=== PATIENT | male | born 1960 | race African-American/Black ===

== ENCOUNTER 2017-05-24 12:34 | Emergency (ER) | payer MEDICAID, OTHER ==
[~2017-05-24] VITALS: Ht 175.3 cm; Wt 81.6 kg
[~2017-05-24 12:34] MED LIST: ALBUAER3 IN; AMI25T PO; AML5T PO; ASPI-231 PO; ATOR1TAB PO; BENA40TA7 PO; BUPR75TA9 PO; CYCL1TAB18 PO; DICL50TA4 PO; DIPH50CA31 PO; FLUC200T50 PO; GABA-339 PO; METH500T6 PO; METO25TA5 PO; OMEP20CA74 PO
[2017-05-24 12:49] VITALS: BP 158/101
[2017-05-24 15:03] LABS: Alanine Aminotransferase 40 U/L (16-61); Albumin 4.2 g/dL (3.4-5.0); Alkaline Phosphatase 191 U/L (45-117); Anion Gap 8 (5-15); Aspartate Aminotransferase 32 U/L (15-37); BUN/Creatinine Ratio 11.7; Basophils # (auto) 0.1 uL; Bilirubin, Total 0.9 mg/dL (0.2-1.0); Blood Urea Nitrogen 15 mg/dL (7-18); Calcium 9.6 mg/dL (8.5-10.1); Carbon Dioxide 24 mmol/L (21-32); Chloride 107 mmol/L (98-107); Eosinophils # (auto) 0.1 uL; GFR African American 75 mL/min; GFR Non-African American 62 mL/min; Glucose 90 mg/dL (74-106); Neutrophils # (auto) 4.1 uL; Nucleated Red Blood Cells % 0.2 %; Potassium 4.5 mmol/L (3.5-5.1); Sodium 139 mmol/L (136-145); Total Protein 8.8 g/dL (6.4-8.2)
[2017-05-24 15:07] LABS: Basophils % (auto) 1.5 % (0.0-2.0); Eosinophils % (auto) 1.7 % (0.0-7.0); Hematocrit 48.1 % (41.0-53.0); Hemoglobin 15.8 g/dL (13.5-17.5); Lymphocytes # (auto) 2.2 uL; Lymphocytes % (auto) 31.5 % (10.0-50.0); Mean Corpuscular Hemoglobin 27.4 pg (28.0-32.0); Mean Corpuscular Hgb Conc. 32.9 g/dL (32.0-36.0); Mean Corpuscular Volume 83.3 fL (80.0-100.0); Monocytes # (auto) 0.5 uL; Monocytes % (auto) 6.8 % (0.0-12.0); Neutrophils % (auto) 58.5 % (37.0-80.0); Platelet Count (auto) 282 10^3/uL (140-450); Red Blood Cells 5.78 10^6/uL (4.5-5.90); Red Cell Distribution Width 16.1 % (11.8-14.3); White Blood Cell 6.9 10^3/uL (4.4-10.8)
== END 2017-05-24 18:46 | disposition home or self-care (01) ==
LOC: ER 12:34
DX: R07.89 Other chest pain (principal); I10 Essential (primary) hypertension; E78.5 Hyperlipidemia, unspecified; M54.9 Dorsalgia, unspecified; R50.9 Fever, unspecified; Z86.73 Personal history of transient ischemic attack (TIA), and cerebral infarction without residual deficits; Z79.82 Long term (current) use of aspirin; Z79.899 Other long term (current) drug therapy; Z90.49 Acquired absence of other specified parts of digestive tract
CPT/HCPCS: 36415; 71046; 80053; 84484; 85025; 93005

== ENCOUNTER 2017-06-19 18:20 | Inpatient (IN) | payer MEDICAID ==
[~2017-06-19] VITALS: Ht 175.3 cm; Wt 90.8 kg
[2017-06-19 19:55] LABS: Basophils # (auto) 0.1 uL; Eosinophils # (auto) 0.2 uL; Eosinophils % (auto) 2.3 % (0.0-7.0); Hematocrit 44.2 % (41.0-53.0); Hemoglobin 14.3 g/dL (13.5-17.5); Lymphocytes % (auto) 29.2 % (10.0-50.0); Mean Corpuscular Hemoglobin 27.9 pg (28.0-32.0); Mean Corpuscular Hgb Conc. 32.4 g/dL (32.0-36.0); Mean Corpuscular Volume 86.1 fL (80.0-100.0); Monocytes # (auto) 0.5 uL; Monocytes % (auto) 6.6 % (0.0-12.0); Neutrophils # (auto) 4.2 uL; Neutrophils % (auto) 60.9 % (37.0-80.0); Nucleated Red Blood Cells % 0.3 %; Platelet Count (auto) 281 10^3/uL (140-450); Red Blood Cells 5.14 10^6/uL (4.5-5.90); Red Cell Distribution Width 17.4 % (11.8-14.3)
[2017-06-19 20:13] LABS: Albumin 4.1 g/dL (3.4-5.0); BUN/Creatinine Ratio 13.6; Calcium 8.8 mg/dL (8.5-10.1); Magnesium 2.4 mg/dL (1.6-2.6); Potassium 3.9 mmol/L (3.5-5.1)
[2017-06-19 20:18] LABS: Total Protein 7.6 g/dL (6.4-8.2)
[2017-06-20] MEDS ORDERED: ONDANSETRON HCL 4 MG/2 ML VIAL IV ONE (01:15)
[2017-06-20] MEDS ORDERED: MORPHINE SULFATE 4 MG/ML SYR/VIAL IV ONE (01:15)
[2017-06-20] MEDS ORDERED: cloNIDine HCL 0.1 MG TAB PO ONE (03:15)
[2017-06-20 03:54] LABS: Urine Bacteria NONE SEEN /hpf (None Seen); Urine Blood Negative /uL (Negative); Urine Specific Gravity 1.015 (1.001-1.035); Urine WBC 3 /hpf (0 - 3)
[2017-06-20 04:05] LABS: Alcohol, Urine < 3.0 mg/dL (0-5); Amphetamine Screen, Urine NEGATIVE (NEGATIVE); Barbiturate Scree,Urine NEGATIVE (NEGATIVE); Benzodiazephine Screen, Urine NEGATIVE (NEGATIVE); Cannabinoid Screen, Urine NEGATIVE (NEGATIVE); Cocaine Screen, Urine NEGATIVE (NEGATIVE); Opiate Scree,Urine POSITIVE (NEGATIVE); Phencyclidine Screen, Urine NEGATIVE (NEGATIVE)
[2017-06-20] MEDS ORDERED: IOHEXOL 350 MG/ML 100ML IJ ONE (04:27)
[2017-06-20] MEDS ORDERED: ONDANSETRON HCL 4 MG/2 ML VIAL IV PRN (04:30)
[2017-06-20] MEDS ORDERED: MORPHINE SULFATE 4 MG/ML SYR/VIAL IV PRN (04:30)
[2017-06-20] MEDS ORDERED: TEMAZEPAM 15 MG CAP PO PRN (04:30)
[2017-06-20] MEDS ORDERED: ACETAMINOPHEN 325 MG TAB PO PRN (04:30)
[2017-06-20] MEDS ORDERED: DOCUSATE SOD 100 MG CAP PO PRN (04:30)
[2017-06-20] MEDS ORDERED: NITROGLYCERIN 0.4 MG SL TAB SL PRN (04:30)
[2017-06-20] MEDS ORDERED: ALBUTEROL SULF 2.5 MG/0.5ML(0.5%) NEB SOLN NEB PRN (04:30)
[2017-06-20] MEDS: GABAPENTIN 300 MG CAP PO SCH ×3 (05:30→22:10)
[2017-06-20] MEDS: HYDROcodone-ACET 5/325MG TAB PO PRN ×2 (06:38→13:57)
[2017-06-20] MEDS: buPROPion HCL 75 MG TAB PO SCH ×2 (06:38→18:14)
[2017-06-20 08:03] VITALS: BP 147/101
[2017-06-20] MEDS ORDERED: NICO4GUM MT (08:36)
[2017-06-20] MEDS ORDERED: BECL40AE10 IN (08:36)
[2017-06-20] MEDS ORDERED: TRAM50TA2 PO (08:36)
[2017-06-20] MEDS ORDERED: PSEU60TA26 PO (08:36)
[2017-06-20] MEDS ORDERED: FAMO-12 PO (08:36)
[2017-06-20 10:20] VITALS: BP 147/101
[2017-06-20] MEDS: BENAZEPRIL HCL 10 MG TAB PO SCH (11:41)
[2017-06-20] MEDS: METOPROLOL TARTRATE 50 MG TAB PO SCH ×2 (11:41→22:10)
[2017-06-20] MEDS: FAMOTIDINE 20 MG TAB PO SCH ×2 (11:42→22:09)
[2017-06-20] MEDS: ASPirin 81 mg TAB PO SCH (11:42)
[2017-06-20] MEDS: ENOXAPARIN SOD 40 MG/0.4 ML SYRINGE SC SCH (11:43)
[2017-06-20] MEDS: amLODIPine BESYLATE 5 MG TAB PO SCH (11:43)
[2017-06-20 12:20] VITALS: BP 147/82
[2017-06-20 17:00] VITALS: BP 129/81
[2017-06-20] MEDS: traMADol HCL 50 MG TAB PO PRN (17:26)
[2017-06-20] MEDS ORDERED: ATORVASTATIN 20 MG TAB PO SCH (22:00)
[2017-06-20 23:29] VITALS: BP 117/68
[2017-06-21] MEDS: traMADol HCL 50 MG TAB PO PRN ×2 (01:41→12:55)
[2017-06-21 05:14] VITALS: BP 138/86
[2017-06-21] MEDS: buPROPion HCL 75 MG TAB PO SCH (06:15)
[2017-06-21] MEDS: GABAPENTIN 300 MG CAP PO SCH ×2 (06:15→14:41)
[2017-06-21 06:37] LABS: Basophils # (auto) 0 uL; Basophils % (auto) 0.7 % (0.0-2.0); Eosinophils # (auto) 0.2 uL; Eosinophils % (auto) 3.9 % (0.0-7.0); Hematocrit 40.8 % (41.0-53.0); Hemoglobin 13.3 g/dL (13.5-17.5); Lymphocytes # (auto) 1.7 uL; Lymphocytes % (auto) 34.4 % (10.0-50.0); Mean Corpuscular Hemoglobin 28.1 pg (28.0-32.0); Mean Corpuscular Hgb Conc. 32.5 g/dL (32.0-36.0); Mean Corpuscular Volume 86.6 fL (80.0-100.0); Monocytes # (auto) 0.3 uL; Monocytes % (auto) 6.7 % (0.0-12.0); Neutrophils # (auto) 2.7 uL; Neutrophils % (auto) 54.3 % (37.0-80.0); Nucleated Red Blood Cells % 0.2 %; Platelet Count (auto) 256 10^3/uL (140-450); Red Blood Cells 4.72 10^6/uL (4.5-5.90); Red Cell Distribution Width 17.2 % (11.8-14.3)
[2017-06-21 07:10] LABS: Albumin 3.3 g/dL (3.4-5.0); BUN/Creatinine Ratio 12.6; Calcium 8.4 mg/dL (8.5-10.1); Potassium 4.3 mmol/L (3.5-5.1); Total Protein 6.5 g/dL (6.4-8.2)
[2017-06-21 08:36] VITALS: BP 121/74
[2017-06-21] MEDS ORDERED: ADENOSINE 76 MG in GIVE UN-DILUTED 0 ML IV ONE (09:00)
[2017-06-21 10:59] VITALS: BP 168/94
[2017-06-21] MEDS: ASPirin 81 mg TAB PO SCH (12:41)
[2017-06-21] MEDS: METOPROLOL TARTRATE 50 MG TAB PO SCH (12:42)
[2017-06-21] MEDS: BENAZEPRIL HCL 10 MG TAB PO SCH (12:43)
[2017-06-21] MEDS: amLODIPine BESYLATE 5 MG TAB PO SCH (12:44)
[2017-06-21] MEDS: FAMOTIDINE 20 MG TAB PO SCH (12:44)
[2017-06-21] MEDS: ENOXAPARIN SOD 40 MG/0.4 ML SYRINGE SC SCH (12:45)
[2017-06-21 13:00] VITALS: BP 149/94
[2017-06-21 17:14] VITALS: BP 136/68
== END 2017-06-21 17:40 | disposition home or self-care (01) | DRG 203 ==
LOC: ER 18:20 → TELE 18:21 → TELE-WESTW 06-20 09:14 → TELE-CENTR 06-20 12:06
PROVIDERS: ADMIT Nurse Practitioner; ATTEND Internal Medicine
DX: M94.0 Chondrocostal junction syndrome [Tietze] (principal); I11.0 Hypertensive heart disease with heart failure; I50.9 Heart failure, unspecified; E78.5 Hyperlipidemia, unspecified; G47.00 Insomnia, unspecified; K59.00 Constipation, unspecified; F12.90 Cannabis use, unspecified, uncomplicated; F14.90 Cocaine use, unspecified, uncomplicated; J45.909 Unspecified asthma, uncomplicated; Z79.899 Other long term (current) drug therapy; Z90.89 Acquired absence of other organs; Z86.73 Personal history of transient ischemic attack (TIA), and cerebral infarction without residual deficits
CPT/HCPCS: 36415; 71046; 71275; 78452; 80053; 80307; 81001; 83735; 83880; 84484; 85025; 85379; 93005; 93017; 96374; 96375; J0153; J2405

== ENCOUNTER 2017-06-23 11:55 | Observation (INO) | payer MEDICAID ==
[~2017-06-23] VITALS: Ht 175.3 cm; Wt 81.6 kg
[~2017-06-23 11:55] MED LIST changes: -AMI25T PO; +BECL40AE10 IN; -BUPR75TA9 PO; -DICL50TA4 PO; +FAMO-12 PO; +NICO4GUM MT; +TRAM50TA2 PO
[2017-06-23 12:23] VITALS: BP 179/103
[2017-06-23] MEDS ORDERED: MORPHINE SULFATE 4 MG/ML SYR/VIAL IV ONE ×2 (12:30→15:45)
[2017-06-23] MEDS ORDERED: ONDANSETRON HCL 4 MG/2 ML VIAL IV ONE ×2 (12:30→15:45)
[2017-06-23 12:42] LABS: Basophils # (auto) 0 uL; Basophils % (auto) 0.5 % (0.0-2.0); Eosinophils # (auto) 0.1 uL; Eosinophils % (auto) 1.4 % (0.0-7.0); Hematocrit 46.6 % (41.0-53.0); Hemoglobin 15.1 g/dL (13.5-17.5); Lymphocytes % (auto) 18.6 % (10.0-50.0); Mean Corpuscular Hemoglobin 27.9 pg (28.0-32.0); Mean Corpuscular Hgb Conc. 32.4 g/dL (32.0-36.0); Mean Corpuscular Volume 85.9 fL (80.0-100.0); Monocytes # (auto) 0.2 uL; Monocytes % (auto) 3.9 % (0.0-12.0); Neutrophils # (auto) 4.2 uL; Neutrophils % (auto) 75.6 % (37.0-80.0); Nucleated Red Blood Cells % 0.1 %; Platelet Count (auto) 293 10^3/uL (140-450); Red Blood Cells 5.42 10^6/uL (4.5-5.90); Red Cell Distribution Width 17.5 % (11.8-14.3); White Blood Cell 5.5 10^3/uL (4.4-10.8)
[2017-06-23 12:56] LABS: INR 0.98 (0.9-1.15); Prothrombin Time 10.7 sec (9.37-12.3)
[2017-06-23 13:04] LABS: Alanine Aminotransferase 31 U/L (16-61); Albumin 3.6 g/dL (3.4-5.0); Alkaline Phosphatase 124 U/L (45-117); Anion Gap 7 (5-15); Aspartate Aminotransferase 13 U/L (15-37); BUN/Creatinine Ratio 10.4; Blood Urea Nitrogen 12 mg/dL (7-18); Calcium 8.8 mg/dL (8.5-10.1); Carbon Dioxide 27 mmol/L (21-32); Chloride 109 mmol/L (98-107); GFR African American 85 mL/min; GFR Non-African American 70 mL/min; Glucose 114 mg/dL (74-106); Magnesium 2.3 mg/dL (1.6-2.6); Potassium 3.6 mmol/L (3.5-5.1); Sodium 143 mmol/L (136-145); Total Protein 7.5 g/dL (6.4-8.2)
[2017-06-23] MEDS ORDERED: METOPROLOL TARTRATE 50 MG TAB PO ONE (15:00)
[2017-06-23] MEDS ORDERED: amLODIPine BESYLATE 5 MG TAB PO ONE (15:00)
[2017-06-23] MEDS ORDERED: BENAZEPRIL HCL 10 MG TAB PO ONE (15:00)
== END 2017-06-23 18:27 | disposition home or self-care (01) | DRG 203 ==
LOC: EDBD 11:55 → ER 11:55 → OVERFLOW 12:23 → ER 18:27
PROVIDERS: ADMIT Family Medicine; ATTEND Family Medicine
DX: R07.89 Other chest pain (principal); I11.0 Hypertensive heart disease with heart failure; I50.42 Chronic combined systolic (congestive) and diastolic (congestive) heart failure; E78.5 Hyperlipidemia, unspecified; Z90.2 Acquired absence of lung [part of]
CPT/HCPCS: 36415; 71250; 80053; 83735; 83880; 84484; 85025; 85610; 85730; 93005; 96374; 96375; 96376; 99285; G0378; J2270; J2405

== ENCOUNTER 2017-10-06 11:33 | Emergency (ER) | payer SELFPAY ==
[~2017-10-06] VITALS: Ht 175.3 cm; Wt 90.7 kg
[2017-10-06 12:02] VITALS: BP 152/107
== END 2017-10-06 13:36 | disposition home or self-care (01) ==
LOC: ER 11:33
DX: G89.29 Other chronic pain (principal); M54.5 Low back pain; E78.5 Hyperlipidemia, unspecified; I10 Essential (primary) hypertension; Z90.89 Acquired absence of other organs; Z79.899 Other long term (current) drug therapy; Z76.0 Encounter for issue of repeat prescription

== ENCOUNTER 2022-12-28 05:07 | Inpatient (IN) | payer MEDICAID ==
[2022-12-28] VITALS (7 sets, daily range): BP systolic 148–156; BP diastolic 88–100; PULSE 60–123; RESP 22–26; TEMP 99.2–100.2; O2SAT 88–100
[~2022-12-28] VITALS: Ht 185.4 cm; Wt 94.5 kg
[~2022-12-28 05:07] MED LIST changes: -ASPI-231 PO; +ASPI1TAB20 PO; +ATOR-47 PO; -ATOR1TAB PO; -BENA40TA7 PO; +BENA40TA70 PO; +CYCL-839 PO; -CYCL1TAB18 PO; +METH-1181 PO; -METH500T6 PO
[2022-12-28] MEDS ORDERED: cefTRIAXone SOD 1,000 MG VL IV ONE (05:15)
[2022-12-28] MEDS ORDERED: AZITHROMYCIN 500MG/ 250ML 250 ML IV ONE (05:15)
[2022-12-28] MEDS ORDERED: ACETAMINOPHEN 650 MG RECT SUPP PR ONE (05:30)
[2022-12-28] MEDS ORDERED: cefTRIAXone 1GM/50ML D5W 50 ML IV ONE (05:30)
[2022-12-28] MEDS ORDERED: LORazepam 2MG/ML-1ML VIAL IV ONE (05:45)
[2022-12-28 05:51] LABS: Basophils # (auto) 0.2 10 ^3/uL (0-0.2); Basophils % (auto) 1.9 % (0.0-2.0); Eosinophils # (auto) 0 10 ^3/uL (0-0.8); Eosinophils % (auto) 0.4 % (0.0-7.0); Hematocrit 49.8 % (41.0-53.0); Hemoglobin 16.1 g/dL (13.5-17.5); Lymphocytes # (auto) 0.6 10 ^3/uL (0.4-5.4); Lymphocytes % (auto) 5.8 % (10.0-50.0); Mean Corpuscular Hemoglobin 27.6 pg (28.0-32.0); Mean Corpuscular Hgb Conc. 32.2 g/dL (32.0-36.0); Mean Corpuscular Volume 85.7 fL (80.0-100.0); Monocytes # (auto) 0.2 10 ^3/uL (0-1.3); Monocytes % (auto) 1.9 % (0.0-12.0); Neutrophils # (auto) 9.4 10 ^3/uL (1.6-8.6); Nucleated Red Blood Cells % 0.5 %; Red Blood Cells 5.81 10^6/uL (4.5-5.90); Red Cell Distribution Width 14.3 % (11.8-14.3); White Blood Cell 10.5 10^3/uL (4.4-10.8)
[2022-12-28 06:10] LABS: Albumin 4.1 g/dL (3.4-5.0); Calcium 8.6 mg/dL (8.5-10.1); Potassium 4.1 mmol/L (3.5-5.1)
[2022-12-28 06:12] LABS: Lactic Acid w/Reflex 2.6 mmol/L (0.4-2.0)
[2022-12-28 06:15] LABS: BUN/Creatinine Ratio 8.5 (10.0-20.0); Bilirubin, Total 1.2 mg/dL (0.2-1.0); Total Protein 7.6 g/dL (6.4-8.2)
[2022-12-28 06:54] LABS: COVID19 ANTIGEN SOFIA FIA NEGATIVE (NEGATIVE); Rapid Influenza A Negative (Negative)
[2022-12-28 06:55] LABS: Rapid Influenza B Negative (Negative)
[2022-12-28] MEDS ORDERED: SODIUM CHLORIDE 0.9% 1,000 ML IV ONE (07:15)
[2022-12-28] MEDS ORDERED: AMIODARONE BOLUS KIT 100 ML IV ONE (08:15)
[2022-12-28] MEDS ORDERED: AMIODARONE 450mg/250ml AE 250 ML IV SCH (08:30)
[2022-12-28] MEDS ORDERED: PERCOT PO (10:48)
[2022-12-28] MEDS ORDERED: HYDR12.59 PO (10:50)
[2022-12-28] MEDS ORDERED: MORP15TA PO (10:52)
[2022-12-28 11:58] LABS: Urine Bacteria NONE SEEN /hpf (None Seen); Urine Blood Negative /uL (Negative); Urine Clarity Clear (Clear); Urine Color Yellow (Yellow); Urine Protein, UAD TRACE (Negative); Urine Specific Gravity 1.016 (1.001-1.035); Urine Urobilinogen Normal (Negative); Urine WBC 1 /hpf (0 - 3); Urine pH 5.5 (5.0-8.0)
[2022-12-28] MEDS ORDERED: ONDANSETRON HCL 4 MG/2 ML VIAL IV PRN (12:00)
[2022-12-28] MEDS ORDERED: SODIUM CHLORIDE 0.9% 1,000 ML IV SCH (12:00)
[2022-12-28] MEDS ORDERED: IPRATROPIUM BROM 0.5 MG/2.5ML INH SOL NEB PRN ×2 (12:00)
[2022-12-28] MEDS ORDERED: ENOXAPARIN SOD 40 MG/0.4 ML SYRINGE SC SCH (12:00)
[2022-12-28] MEDS ORDERED: DOCUSATE SOD 100 MG CAP PO PRN (12:00)
[2022-12-28] MEDS ORDERED: DEXTROSE (50%) 50ML SYRG IV PRN (12:00)
[2022-12-28] MEDS ORDERED: ALBUTEROL SULF 2.5 MG/0.5ML(0.5%) NEB SOLN NEB PRN ×2 (12:00)
[2022-12-28] MEDS ORDERED: ACETAMINOPHEN 325 MG TAB PO PRN ×2 (12:30→15:30)
[2022-12-28 12:46] LABS: Creatinine, Urine 113 mg/dL (30.0-125.0); Sodium Urine 90 mmol/L (40-220)
[2022-12-28 12:48] LABS: Base Excess -0.6 mmol/L (-2.0-2.0)
[2022-12-28] MEDS: InsuLIN REG 1unit/0.01ml Soln (100units/ml) SC SCH ×2 (13:41→19:36)
[2022-12-28] MEDS: ACCU-CHEK COMFORT CURVE STRIP VI SCH ×2 (13:42→19:36)
[2022-12-28] MEDS ORDERED: ENOXAPARIN SOD 100 MG/1 ML SYRINGE SC ONE (17:45)
[2022-12-28] MEDS ORDERED: ASPirin 81 mg TAB PO ONE (17:45)
[2022-12-28] MEDS ORDERED: FUROSEMIDE 20 MG/2 ML VIAL IV ONE (17:45)
[2022-12-28] MEDS: DexAMETHasone SOD PHOS 4 MG/1ML SDV INJ IV SCH (21:21)
[2022-12-28] MEDS ORDERED: ENOXAPARIN SOD 100 MG/1 ML SYRINGE SC SCH (22:00)
[2022-12-28] MEDS: METOPROLOL TARTRATE 50 MG TAB PO SCH (22:24)
[2022-12-28] MEDS: DRONEDARONE HCL 400 MG TAB PO SCH (22:25)
[2022-12-29] VITALS (59 sets, daily range): BP systolic 132–164; BP diastolic 78–101; PULSE 59–145; RESP 11–97; TEMP 98.1–98.6; O2SAT 92–99
[2022-12-29] MEDS: DexAMETHasone SOD PHOS 4 MG/1ML SDV INJ IV SCH ×2 (00:29→05:30)
[2022-12-29] MEDS: ACCU-CHEK COMFORT CURVE STRIP VI SCH ×5 (00:30→23:41)
[2022-12-29] MEDS: InsuLIN REG 1unit/0.01ml Soln (100units/ml) SC SCH ×5 (00:30→23:41)
[2022-12-29 05:13] LABS: Basophils # (auto) 0 10 ^3/uL (0-0.2); Basophils % (auto) 0.3 % (0.0-2.0); Eosinophils # (auto) 0 10 ^3/uL (0-0.8); Hematocrit 49.7 % (41.0-53.0); Hemoglobin 15.7 g/dL (13.5-17.5); Lymphocytes # (auto) 0.7 10 ^3/uL (0.4-5.4); Lymphocytes % (auto) 5.1 % (10.0-50.0); Mean Corpuscular Hemoglobin 27.1 pg (28.0-32.0); Mean Corpuscular Hgb Conc. 31.6 g/dL (32.0-36.0); Mean Corpuscular Volume 85.6 fL (80.0-100.0); Monocytes # (auto) 0.2 10 ^3/uL (0-1.3); Monocytes % (auto) 1.1 % (0.0-12.0); Neutrophils # (auto) 13.4 10 ^3/uL (1.6-8.6); Neutrophils % (auto) 93.5 % (37.0-80.0); Nucleated Red Blood Cells % 0.1 %; Red Cell Distribution Width 14.7 % (11.8-14.3); White Blood Cell 14.3 10^3/uL (4.4-10.8)
[2022-12-29 05:24] LABS: Potassium 3.9 mmol/L (3.5-5.1)
[2022-12-29] MEDS: MORPHINE SULFATE INJ 2 MG/ml SYRG IV PRN ×4 (05:27→20:55)
[2022-12-29] MEDS: FUROSEMIDE 20 MG/2 ML VIAL IV SCH ×2 (05:31→18:01)
[2022-12-29 05:48] LABS: Albumin 3.6 g/dL (3.4-5.0); BUN/Creatinine Ratio 11.9 (10.0-20.0); Bilirubin, Total 1.8 mg/dL (0.2-1.0); Total Protein 7.3 g/dL (6.4-8.2)
[2022-12-29 09:25] LABS: Amylase 54 U/L (25-115); Lipase 119 U/L (73-393)
[2022-12-29] MEDS ORDERED: METOPROLOL TARTRATE 25 MG TAB PO SCH (10:00)
[2022-12-29] MEDS: PANTOPRAZOLE 40 MG/10 ML VIAL INJ IV SCH (10:17)
[2022-12-29] MEDS: AZITHROMYCIN 500MG/ 250ML 250 ML IV SCH (10:17)
[2022-12-29] MEDS: cefTRIAXone 1GM/50ML D5W 50 ML IV SCH (10:17)
[2022-12-29] MEDS: ENOXAPARIN SOD 100 MG/1 ML SYRINGE SC SCH ×2 (10:18→23:23)
[2022-12-29] MEDS: METOPROLOL TARTRATE 50 MG TAB PO SCH ×2 (10:18→23:23)
[2022-12-29] MEDS: SPIRONOLACTONE 25 MG TAB PO SCH (10:19)
[2022-12-29] MEDS: ASPirin 81 mg TAB PO SCH (10:19)
[2022-12-29] MEDS: SACUBITRIL-VALSARTAN 24mg/26mg TAB PO SCH ×2 (10:19→23:22)
[2022-12-29] MEDS: DRONEDARONE HCL 400 MG TAB PO SCH ×2 (10:21→23:22)
[2022-12-29] MEDS ORDERED: OMNIPAQUE 12mg/ml 500ml ORAL SOLUTION PO ONE (17:26)
[2022-12-29] MEDS ORDERED: TEMAZEPAM 15 MG CAP PO PRN (22:30)
[2022-12-29] MEDS: methylPREDNISolone SOD SUCC 40 MG/ML VL IV SCH (23:22)
[2022-12-30] VITALS (16 sets, daily range): BP systolic 102–129; BP diastolic 69–87; PULSE 53–137; RESP 9–24; TEMP 98–98.4; O2SAT 90–96
[2022-12-30] MEDS: ACCU-CHEK COMFORT CURVE STRIP VI SCH ×3 (06:00→11:05)
[2022-12-30] MEDS: FUROSEMIDE 20 MG/2 ML VIAL IV SCH ×2 (06:00→15:31)
[2022-12-30] MEDS: InsuLIN REG 1unit/0.01ml Soln (100units/ml) SC SCH ×3 (06:00→16:00)
[2022-12-30 06:48] LABS: Basophils # (auto) 0 10 ^3/uL (0-0.2); Basophils % (auto) 0.2 % (0.0-2.0); Eosinophils # (auto) 0 10 ^3/uL (0-0.8); Hematocrit 48.5 % (41.0-53.0); Hemoglobin 15.5 g/dL (13.5-17.5); Lymphocytes # (auto) 0.8 10 ^3/uL (0.4-5.4); Lymphocytes % (auto) 5.4 % (10.0-50.0); Mean Corpuscular Hemoglobin 27.1 pg (28.0-32.0); Mean Corpuscular Hgb Conc. 32.1 g/dL (32.0-36.0); Mean Corpuscular Volume 84.3 fL (80.0-100.0); Monocytes # (auto) 0.3 10 ^3/uL (0-1.3); Monocytes % (auto) 2.4 % (0.0-12.0); Neutrophils # (auto) 12.7 10 ^3/uL (1.6-8.6); Nucleated Red Blood Cells % 0.2 %; Red Blood Cells 5.75 10^6/uL (4.5-5.90); Red Cell Distribution Width 14.3 % (11.8-14.3); White Blood Cell 13.9 10^3/uL (4.4-10.8)
[2022-12-30 06:57] LABS: Albumin 3.5 g/dL (3.4-5.0); BUN/Creatinine Ratio 16.7 (10.0-20.0); Calcium 8.8 mg/dL (8.5-10.1); Potassium 3.6 mmol/L (3.5-5.1)
[2022-12-30 07:00] LABS: Bilirubin, Total 1.3 mg/dL (0.2-1.0); Total Protein 7.5 g/dL (6.4-8.2)
[2022-12-30 07:37] LABS: INR 1.09 (0.9-1.15); Prothrombin Time 11.4 sec (9.3-11.8)
[2022-12-30] MEDS: PANTOPRAZOLE 40 MG/10 ML VIAL INJ IV SCH (08:26)
[2022-12-30] MEDS: cefTRIAXone 1GM/50ML D5W 50 ML IV SCH (08:26)
[2022-12-30] MEDS: ENOXAPARIN SOD 100 MG/1 ML SYRINGE SC SCH (08:26)
[2022-12-30] MEDS: AZITHROMYCIN 500MG/ 250ML 250 ML IV SCH (08:26)
[2022-12-30] MEDS: DRONEDARONE HCL 400 MG TAB PO SCH ×2 (08:27→22:00)
[2022-12-30] MEDS: SPIRONOLACTONE 25 MG TAB PO SCH (08:27)
[2022-12-30] MEDS: ASPirin 81 mg TAB PO SCH (08:27)
[2022-12-30] MEDS: methylPREDNISolone SOD SUCC 40 MG/ML VL IV SCH ×2 (08:27→22:00)
[2022-12-30] MEDS: SACUBITRIL-VALSARTAN 24mg/26mg TAB PO SCH ×2 (08:27→22:00)
[2022-12-30] MEDS: METOPROLOL TARTRATE 50 MG TAB PO SCH ×2 (09:25→22:00)
[2022-12-30] MEDS: EMPAGLIFLOZIN 10 MG TAB PO SCH (09:26)
[2022-12-30] MEDS: MORPHINE SULFATE INJ 2 MG/ml SYRG IV PRN (10:55)
[2022-12-30] MEDS: HYDROmorphone HCL 2 MG/ML VL/or syr IV PRN (15:35)
[2022-12-31] VITALS (33 sets, daily range): BP systolic 104–128; BP diastolic 57–80; PULSE 54–78; RESP 10–18; TEMP 97.7–98.1; O2SAT 91–97
[2022-12-31] MEDS: HYDROmorphone HCL 2 MG/ML VL/or syr IV PRN ×5 (04:59→21:25)
[2022-12-31] MEDS: ENOXAPARIN SOD 100 MG/1 ML SYRINGE SC SCH ×2 (05:00→16:22)
[2022-12-31] MEDS: ACCU-CHEK COMFORT CURVE STRIP VI SCH ×5 (06:00→22:00)
[2022-12-31] MEDS: InsuLIN REG 1unit/0.01ml Soln (100units/ml) SC SCH ×5 (06:00→22:00)
[2022-12-31] MEDS: FUROSEMIDE 20 MG/2 ML VIAL IV SCH ×2 (06:00→16:22)
[2022-12-31] MEDS: cefTRIAXone 1GM/50ML D5W 50 ML IV SCH (08:19)
[2022-12-31] MEDS: PANTOPRAZOLE 40 MG/10 ML VIAL INJ IV SCH (08:19)
[2022-12-31] MEDS: EMPAGLIFLOZIN 10 MG TAB PO SCH (08:19)
[2022-12-31] MEDS: methylPREDNISolone SOD SUCC 40 MG/ML VL IV SCH (08:19)
[2022-12-31] MEDS: ASPirin 81 mg TAB PO SCH (08:20)
[2022-12-31] MEDS: SPIRONOLACTONE 25 MG TAB PO SCH (08:20)
[2022-12-31] MEDS: AZITHROMYCIN 500MG/ 250ML 250 ML IV SCH (08:21)
[2022-12-31 08:30] LABS: Basophils # (auto) 0 10 ^3/uL (0-0.2); Basophils % (auto) 0.4 % (0.0-2.0); Eosinophils # (auto) 0 10 ^3/uL (0-0.8); Hematocrit 48.3 % (41.0-53.0); Hemoglobin 15.7 g/dL (13.5-17.5); Lymphocytes # (auto) 0.7 10 ^3/uL (0.4-5.4); Lymphocytes % (auto) 6.2 % (10.0-50.0); Mean Corpuscular Hemoglobin 27.3 pg (28.0-32.0); Mean Corpuscular Hgb Conc. 32.4 g/dL (32.0-36.0); Mean Corpuscular Volume 84.4 fL (80.0-100.0); Monocytes # (auto) 0.2 10 ^3/uL (0-1.3); Monocytes % (auto) 2.1 % (0.0-12.0); Neutrophils # (auto) 9.6 10 ^3/uL (1.6-8.6); Neutrophils % (auto) 91.3 % (37.0-80.0); Nucleated Red Blood Cells % 0.1 %; Red Blood Cells 5.72 10^6/uL (4.5-5.90); Red Cell Distribution Width 14.5 % (11.8-14.3); White Blood Cell 10.5 10^3/uL (4.4-10.8)
[2022-12-31 09:19] LABS: BUN/Creatinine Ratio 20.2 (10.0-20.0); Calcium 8.7 mg/dL (8.5-10.1); Potassium 3.8 mmol/L (3.5-5.1)
[2022-12-31] MEDS: SACUBITRIL-VALSARTAN 24mg/26mg TAB PO SCH ×3 (09:29→21:25)
[2022-12-31] MEDS: DRONEDARONE HCL 400 MG TAB PO SCH (09:29)
[2022-12-31] MEDS: METOPROLOL TARTRATE 50 MG TAB PO SCH ×2 (09:29→22:00)
[2022-12-31] MEDS ORDERED: DEXTROSE (50%) 50ML SYRG IV PRN (11:45)
[2023-01-01] VITALS (22 sets, daily range): BP systolic 100–149; BP diastolic 64–90; PULSE 57–145; RESP 7–17; TEMP 97.9–98.5; O2SAT 86–97
[2023-01-01] MEDS: DRONEDARONE HCL 400 MG TAB PO SCH ×3 (00:26→23:00)
[2023-01-01] MEDS: HYDROmorphone HCL 2 MG/ML VL/or syr IV PRN ×6 (00:28→22:02)
[2023-01-01] MEDS: methylPREDNISolone SOD SUCC 40 MG/ML VL IV SCH ×3 (00:28→22:03)
[2023-01-01] MEDS: ENOXAPARIN SOD 100 MG/1 ML SYRINGE SC SCH ×2 (05:00→16:05)
[2023-01-01 05:09] LABS: Calcium 8.6 mg/dL (8.5-10.1); Potassium 3.4 mmol/L (3.5-5.1)
[2023-01-01 05:11] LABS: BUN/Creatinine Ratio 19.8 (10.0-20.0)
[2023-01-01] MEDS: FUROSEMIDE 20 MG/2 ML VIAL IV SCH ×2 (05:56→16:05)
[2023-01-01] MEDS: InsuLIN REG 1unit/0.01ml Soln (100units/ml) SC SCH ×4 (05:57→22:00)
[2023-01-01] MEDS: ACCU-CHEK COMFORT CURVE STRIP VI SCH ×4 (05:57→22:04)
[2023-01-01] MEDS: EMPAGLIFLOZIN 10 MG TAB PO SCH (07:00)
[2023-01-01] MEDS: SPIRONOLACTONE 25 MG TAB PO SCH (07:46)
[2023-01-01] MEDS: ASPirin 81 mg TAB PO SCH (07:46)
[2023-01-01] MEDS: cefTRIAXone 1GM/50ML D5W 50 ML IV SCH (07:46)
[2023-01-01] MEDS: METOPROLOL TARTRATE 50 MG TAB PO SCH ×2 (07:46→22:04)
[2023-01-01] MEDS: AZITHROMYCIN 500MG/ 250ML 250 ML IV SCH (07:47)
[2023-01-01] MEDS: PANTOPRAZOLE 40 MG/10 ML VIAL INJ IV SCH (07:47)
[2023-01-01] MEDS ORDERED: diphenhdrAMINE HCL 50 MG/1 ML VL IV PRN (08:45)
[2023-01-01 10:06] LABS: Hepatitis B Surface Antibody Negative (Negative)
[2023-01-01 10:32] LABS: Hepatitis A Total Antibody Positive (Negative)
[2023-01-01 13:21] LABS: Hepatitis C Antibody Negative (Negative)
[2023-01-01 13:22] LABS: Hepatitis B Core Total AB Negative (Negative); Hepatitis B Surface Antigen Negative (Negative)
[2023-01-01] MEDS: SACUBITRIL-VALSARTAN 24mg/26mg TAB PO SCH (20:30)
[2023-01-01] MEDS: OXYCODONE W/ ACETAMINOPHEN 5/325MG TABLET PO PRN (20:31)
[2023-01-02] VITALS (21 sets, daily range): BP systolic 112–158; BP diastolic 71–93; PULSE 55–133; RESP 9–18; TEMP 97.8–98.9; O2SAT 87–98
[2023-01-02] MEDS: HYDROmorphone HCL 2 MG/ML VL/or syr IV PRN ×2 (03:45→11:35)
[2023-01-02 04:59] LABS: Basophils # (auto) 0 10 ^3/uL (0-0.2); Basophils % (auto) 0.1 % (0.0-2.0); Eosinophils # (auto) 0 10 ^3/uL (0-0.8); Hematocrit 49.7 % (41.0-53.0); Hemoglobin 16.4 g/dL (13.5-17.5); Lymphocytes # (auto) 0.5 10 ^3/uL (0.4-5.4); Lymphocytes % (auto) 6.1 % (10.0-50.0); Mean Corpuscular Hemoglobin 27.8 pg (28.0-32.0); Mean Corpuscular Hgb Conc. 33.1 g/dL (32.0-36.0); Mean Corpuscular Volume 84.1 fL (80.0-100.0); Monocytes # (auto) 0.5 10 ^3/uL (0-1.3); Monocytes % (auto) 5.2 % (0.0-12.0); Neutrophils % (auto) 88.6 % (37.0-80.0); Nucleated Red Blood Cells % 0.2 %; Red Blood Cells 5.91 10^6/uL (4.5-5.90); Red Cell Distribution Width 14.2 % (11.8-14.3)
[2023-01-02 05:16] LABS: BUN/Creatinine Ratio 21.4 (10.0-20.0); Calcium 8.6 mg/dL (8.7-10.4); Potassium 3.4 mmol/L (3.5-5.1)
[2023-01-02] MEDS: EMPAGLIFLOZIN 10 MG TAB PO SCH (06:01)
[2023-01-02] MEDS: ENOXAPARIN SOD 100 MG/1 ML SYRINGE SC SCH (06:02)
[2023-01-02] MEDS: FUROSEMIDE 20 MG/2 ML VIAL IV SCH (06:02)
[2023-01-02] MEDS: OXYCODONE W/ ACETAMINOPHEN 5/325MG TABLET PO PRN ×2 (06:07→11:34)
[2023-01-02] MEDS: InsuLIN REG 1unit/0.01ml Soln (100units/ml) SC SCH ×2 (06:08→10:36)
[2023-01-02] MEDS: ACCU-CHEK COMFORT CURVE STRIP VI SCH ×2 (06:08→10:36)
[2023-01-02] MEDS: methylPREDNISolone SOD SUCC 40 MG/ML VL IV SCH (07:38)
[2023-01-02] MEDS: PANTOPRAZOLE 40 MG/10 ML VIAL INJ IV SCH (07:38)
[2023-01-02] MEDS: ASPirin 81 mg TAB PO SCH (07:39)
[2023-01-02] MEDS: SACUBITRIL-VALSARTAN 24mg/26mg TAB PO SCH (07:39)
[2023-01-02] MEDS: SPIRONOLACTONE 25 MG TAB PO SCH (07:39)
[2023-01-02] MEDS: cefTRIAXone 1GM/50ML D5W 50 ML IV SCH (07:39)
[2023-01-02] MEDS: METOPROLOL TARTRATE 50 MG TAB PO SCH (07:39)
[2023-01-02] MEDS: AZITHROMYCIN 500MG/ 250ML 250 ML IV SCH (07:40)
[2023-01-02] MEDS: DRONEDARONE HCL 400 MG TAB PO SCH (07:40)
[2023-01-02] MEDS ORDERED: SACU1TAB PO (10:39)
[2023-01-02] MEDS ORDERED: ASPI-325 PO (10:39)
[2023-01-02] MEDS ORDERED: SPIR25TA PO (10:39)
[2023-01-02] MEDS ORDERED: FURO1TAB33 PO (10:39)
[2023-01-02] MEDS ORDERED: EMPA1TAB PO (10:39)
[2023-01-02] MEDS ORDERED: MET50T PO (10:39)
[2023-01-02] MEDS ORDERED: AMOX500T86 PO (10:40)
[2023-01-02] MEDS ORDERED: DRON400T PO (10:40)
[2023-01-02] MEDS ORDERED: APIX2.5T PO (10:41)
== END 2023-01-02 13:05 | disposition home or self-care (01) | DRG 720 ==
LOC: EDUNIT# 05:07 → EDBD 05:07 → ER 05:07 → TELE 11:58 → DOU IN ICU 22:17
PROVIDERS: ADMIT Nurse Practitioner Family; ATTEND Internal Medicine Pulmonary Disease
PROC: 5A09357 Assistance with Respiratory Ventilation, Less than 24 Consecutive Hours, Continuous Positive Airway Pressure (ICD-10-PCS; principal; 2022-12-28)
DX: A41.9 Sepsis, unspecified organism (principal); J96.21 Acute and chronic respiratory failure with hypoxia; I50.23 Acute on chronic systolic (congestive) heart failure; I42.0 Dilated cardiomyopathy; J18.9 Pneumonia, unspecified organism; K80.01 Calculus of gallbladder with acute cholecystitis with obstruction; I48.20 Chronic atrial fibrillation, unspecified; N17.9 Acute kidney failure, unspecified; J44.0 Chronic obstructive pulmonary disease with (acute) lower respiratory infection; I11.0 Hypertensive heart disease with heart failure; J96.22 Acute and chronic respiratory failure with hypercapnia; J44.1 Chronic obstructive pulmonary disease with (acute) exacerbation; R04.2 Hemoptysis; G89.4 Chronic pain syndrome; Z20.822 Contact with and (suspected) exposure to COVID-19; I48.0 Paroxysmal atrial fibrillation; E78.5 Hyperlipidemia, unspecified; K21.9 Gastro-esophageal reflux disease without esophagitis; E66.9 Obesity, unspecified; I16.0 Hypertensive urgency; J98.11 Atelectasis; Z82.49 Family history of ischemic heart disease and other diseases of the circulatory system; Z87.891 Personal history of nicotine dependence; Z90.2 Acquired absence of lung [part of]; Z68.27 Body mass index [BMI] 27.0-27.9, adult
CPT/HCPCS: 36415; 36600; 71045; 71250; 74176; 76705; 80048; 80053; 80061; 81001; 82150; 82306; 82570; 82728; 82805; 82962; 83036; 83605; 83690; 83735; 83880; 84300; 84443; 84484; 85025; 85379; 85610; 86704; 86706; 86708; 86803; 87040; 87081; 87340; 87426; 87804; 93005; 93306; 94660; 96365; 96366; 96375; 99291; C9113; G0378; J0696; J1100; J2405

== ENCOUNTER 2024-02-22 14:37 | Emergency (ER) | payer MEDICAID ==
[~2024-02-22] VITALS: Ht 175.3 cm; Wt 100.7 kg
[~2024-02-22 14:37] MED LIST changes: +AMOX500T86 PO; +APIX2.5T PO; +ASPI-325 PO; -BENA40TA70 PO; +DRON400T PO; +EMPA1TAB PO; -FLUC200T50 PO; +FURO1TAB33 PO; +HYDR12.59 PO; +MET50T PO; +MORP15TA PO; +PERCOT PO; +SACU1TAB PO; +SPIR25TA PO
[2024-02-22 15:54] LABS: Chloride 106 mmol/L (98-107); Potassium 4.7 mmol/L (3.5-5.1); Sodium 143 mmol/L (136-145)
[2024-02-22 15:55] LABS: Anion Gap 7 (5-15); Calcium 9.6 mg/dL (8.7-10.4); Carbon Dioxide 30 mmol/L (20-31)
[2024-02-22 15:59] LABS: Basophils # (auto) 0 10 ^3/uL (0-0.2); Basophils % (auto) 0.6 % (0.0-2.0); Eosinophils # (auto) 0.2 10 ^3/uL (0-0.8); Eosinophils % (auto) 2.5 % (0.0-7.0); Hematocrit 51.8 % (41.0-53.0); Hemoglobin 16.8 g/dL (13.5-17.5); Lymphocytes # (auto) 1.8 10 ^3/uL (0.4-5.4); Lymphocytes % (auto) 30.6 % (10.0-50.0); Mean Corpuscular Hemoglobin 28.4 pg (28.0-32.0); Mean Corpuscular Hgb Conc. 32.5 g/dL (32.0-36.0); Mean Corpuscular Volume 87.3 fL (80.0-100.0); Monocytes # (auto) 0.3 10 ^3/uL (0-1.3); Monocytes % (auto) 5.5 % (0.0-12.0); Neutrophils # (auto) 3.7 10 ^3/uL (1.6-8.6); Neutrophils % (auto) 60.8 % (37.0-80.0); Nucleated Red Blood Cells % 0.1 %; Platelet Count (auto) 299 10^3/uL (140-450); Red Blood Cells 5.93 10^6/uL (4.5-5.90); Red Cell Distribution Width 14.1 % (11.8-14.3)
[2024-02-22 16:00] LABS: BUN/Creatinine Ratio 10.2 (10.0-20.0); Blood Urea Nitrogen 13 mg/dL (9-23); Glucose 138 mg/dL (74-106)
[2024-02-22 16:27] VITALS: TEMP 98.2
[2024-02-22] MEDS: cloNIDine HCL 0.1 MG TAB PO ONE (16:31)
[2024-02-22 17:45] VITALS: BP 143/92; PULSE 6; RESP 16; O2SAT 95
[2024-02-22] MEDS ORDERED: CLON0.2T PO (18:38)
== END 2024-02-22 19:46 | disposition left against medical advice (07) ==
LOC: ER 14:37
DX: I10 Essential (primary) hypertension (principal); J44.9 Chronic obstructive pulmonary disease, unspecified; E78.5 Hyperlipidemia, unspecified; E66.01 Morbid (severe) obesity due to excess calories; Z68.32 Body mass index [BMI] 32.0-32.9, adult; Z90.89 Acquired absence of other organs; Z79.899 Other long term (current) drug therapy; Z79.82 Long term (current) use of aspirin; Z79.84 Long term (current) use of oral hypoglycemic drugs; Z79.51 Long term (current) use of inhaled steroids; Z79.01 Long term (current) use of anticoagulants
CPT/HCPCS: 36415; 80048; 83880; 84484; 85025; 93005

== ENCOUNTER 2024-03-01 14:40 | Inpatient (IN) | payer MEDICAID ==
[~2024-03-01] VITALS: Ht 175.3 cm; Wt 101.8 kg
[~2024-03-01 14:40] MED LIST changes: +CLON0.2T PO
[2024-03-01] MEDS: MORPHINE SULFATE 4 MG/ML SYR/VIAL IV ONE (15:15)
[2024-03-01] MEDS: ONDANSETRON HCL 4 MG/2 ML VIAL IV ONE (15:15)
[2024-03-01] MEDS: PANTOPRAZOLE 40 MG/10 ML VIAL INJ IV ONE (15:15)
[2024-03-01 15:51] LABS: Basophils # (auto) 0.1 10 ^3/uL (0-0.2); Basophils % (auto) 0.9 % (0.0-2.0); Eosinophils # (auto) 0.1 10 ^3/uL (0-0.8); Eosinophils % (auto) 2.2 % (0.0-7.0); Hematocrit 50.6 % (41.0-53.0); Hemoglobin 16.6 g/dL (13.5-17.5); Lymphocytes # (auto) 1.9 10 ^3/uL (0.4-5.4); Lymphocytes % (auto) 29.6 % (10.0-50.0); Mean Corpuscular Hemoglobin 28.5 pg (28.0-32.0); Mean Corpuscular Hgb Conc. 32.9 g/dL (32.0-36.0); Mean Corpuscular Volume 86.5 fL (80.0-100.0); Monocytes # (auto) 0.4 10 ^3/uL (0-1.3); Monocytes % (auto) 6.5 % (0.0-12.0); Neutrophils # (auto) 3.8 10 ^3/uL (1.6-8.6); Neutrophils % (auto) 60.8 % (37.0-80.0); Nucleated Red Blood Cells % 0.3 %; Platelet Count (auto) 258 10^3/uL (140-450); Red Blood Cells 5.85 10^6/uL (4.5-5.90); Red Cell Distribution Width 14.1 % (11.8-14.3); White Blood Cell 6.3 10^3/uL (4.4-10.8)
[2024-03-01 16:05] LABS: Alanine Aminotransferase 15 U/L (7-40); Albumin 4.6 g/dL (3.2-4.8); Alkaline Phosphatase 107 U/L (46-116); Anion Gap 7 (5-15); Aspartate Aminotransferase 17 U/L (13-40); Blood Urea Nitrogen 11 mg/dL (9-23); Calcium 9.3 mg/dL (8.7-10.4); Carbon Dioxide 29 mmol/L (20-31); Chloride 109 mmol/L (98-107); Glucose 93 mg/dL (74-106); Lipase 36 U/L (12-53); Potassium 3.9 mmol/L (3.5-5.1); Sodium 145 mmol/L (136-145)
[2024-03-01 16:06] LABS: Bilirubin, Total 1.1 mg/dL (0.2-1.0)
[2024-03-01 16:09] LABS: Partial Thromboplastin Time 29.7 SEC (24.5-34.5); Prothrombin Time 10.6 sec (9.3-11.8)
[2024-03-01 16:25] LABS: Urine Bacteria None Seen /hpf (None Seen)
[2024-03-01 16:35] LABS: Urine Blood Negative /uL (Negative); Urine Clarity Clear (Clear); Urine Color Yellow (Yellow); Urine Protein, UAD TRACE (Negative); Urine Specific Gravity 1.024 (1.001-1.035); Urine Urobilinogen 2 mg/dL (Negative); Urine WBC <1 /hpf (0 - 3)
[2024-03-01] MEDS ORDERED: BECLOMETHASONE DIPROPIONATE 40 MCG IN PRN (20:45)
[2024-03-01 21:36] LABS: Basophils # (auto) 0 10 ^3/uL (0-0.2); Basophils % (auto) 0.6 % (0.0-2.0); Eosinophils # (auto) 0.2 10 ^3/uL (0-0.8); Eosinophils % (auto) 2.3 % (0.0-7.0); Hematocrit 48.2 % (41.0-53.0); Hemoglobin 15.9 g/dL (13.5-17.5); Lymphocytes # (auto) 2.1 10 ^3/uL (0.4-5.4); Lymphocytes % (auto) 31.5 % (10.0-50.0); Mean Corpuscular Hemoglobin 28.8 pg (28.0-32.0); Mean Corpuscular Volume 87.1 fL (80.0-100.0); Monocytes # (auto) 0.5 10 ^3/uL (0-1.3); Monocytes % (auto) 7.9 % (0.0-12.0); Neutrophils # (auto) 3.9 10 ^3/uL (1.6-8.6); Neutrophils % (auto) 57.7 % (37.0-80.0); Nucleated Red Blood Cells % 0.2 %; Platelet Count (auto) 247 10^3/uL (140-450); Red Blood Cells 5.53 10^6/uL (4.5-5.90); Red Cell Distribution Width 13.6 % (11.8-14.3); White Blood Cell 6.7 10^3/uL (4.4-10.8)
[2024-03-01] MEDS ORDERED: PATIENTS OWN MEDICATION (Gabapentin 800 MG) PO SCH (22:00)
[2024-03-01 22:30] VITALS: PULSE 60
[2024-03-01] MEDS: GABAPENTIN 300 MG CAP PO SCH (23:02)
[2024-03-01] MEDS: ATORVASTATIN 20 MG TAB PO SCH (23:02)
[2024-03-01] MEDS: SACUBITRIL-VALSARTAN 24mg/26mg TAB PO SCH (23:03)
[2024-03-01] MEDS: SODIUM CHLOR 0.9% PF (SALINE LOCK) 10ML VIAL/SYR IV SCH (23:06)
[2024-03-01] MEDS: D5W/LACTATED RINGERS 1,000 ML IV ONE (23:55)
[2024-03-02] VITALS (10 sets, daily range): BP systolic 103–122; BP diastolic 65–74; PULSE 51–104; RESP 14–19; TEMP 98.2–99.6; O2SAT 93–100
[2024-03-02] MEDS: HYDROmorphone HCL 2 MG/ML VL/or syr IV PRN
[2024-03-02] MEDS: ONDANSETRON HCL 4 MG/2 ML VIAL IV PRN (00:01)
[2024-03-02 03:52] LABS: Basophils # (auto) 0 10 ^3/uL (0-0.2); Basophils % (auto) 0.6 % (0.0-2.0); Eosinophils # (auto) 0.1 10 ^3/uL (0-0.8); Eosinophils % (auto) 1.9 % (0.0-7.0); Hematocrit 47.4 % (41.0-53.0); Hemoglobin 15.7 g/dL (13.5-17.5); Lymphocytes # (auto) 2.5 10 ^3/uL (0.4-5.4); Lymphocytes % (auto) 36.4 % (10.0-50.0); Mean Corpuscular Hemoglobin 28.9 pg (28.0-32.0); Mean Corpuscular Hgb Conc. 33.1 g/dL (32.0-36.0); Mean Corpuscular Volume 87.1 fL (80.0-100.0); Monocytes # (auto) 0.6 10 ^3/uL (0-1.3); Monocytes % (auto) 8.4 % (0.0-12.0); Neutrophils # (auto) 3.5 10 ^3/uL (1.6-8.6); Neutrophils % (auto) 52.7 % (37.0-80.0); Nucleated Red Blood Cells % 0.1 %; Platelet Count (auto) 228 10^3/uL (140-450); Red Blood Cells 5.44 10^6/uL (4.5-5.90); White Blood Cell 6.7 10^3/uL (4.4-10.8)
[2024-03-02 04:05] LABS: Alanine Aminotransferase 13 U/L (7-40); Albumin 4.2 g/dL (3.2-4.8); Alkaline Phosphatase 86 U/L (46-116); Anion Gap 4 (5-15); Aspartate Aminotransferase 15 U/L (13-40); BUN/Creatinine Ratio 10.4 (10.0-20.0); Bilirubin, Total 1.2 mg/dL (0.2-1.0); Blood Urea Nitrogen 12 mg/dL (9-23); Calcium 9.1 mg/dL (8.7-10.4); Carbon Dioxide 30 mmol/L (20-31); Chloride 111 mmol/L (98-107); Glucose 96 mg/dL (74-106); Potassium 4.3 mmol/L (3.5-5.1); Sodium 145 mmol/L (136-145); Total Protein 6.3 g/dL (5.7-8.2)
[2024-03-02 08:41] LABS: Basophils # (auto) 0 10 ^3/uL (0-0.2); Basophils % (auto) 0.7 % (0.0-2.0); Eosinophils # (auto) 0.2 10 ^3/uL (0-0.8); Eosinophils % (auto) 2.3 % (0.0-7.0); Hematocrit 51.3 % (41.0-53.0); Lymphocytes # (auto) 2.2 10 ^3/uL (0.4-5.4); Lymphocytes % (auto) 31.1 % (10.0-50.0); Mean Corpuscular Hemoglobin 28.8 pg (28.0-32.0); Mean Corpuscular Hgb Conc. 33.1 g/dL (32.0-36.0); Mean Corpuscular Volume 87.1 fL (80.0-100.0); Monocytes # (auto) 0.6 10 ^3/uL (0-1.3); Monocytes % (auto) 8.7 % (0.0-12.0); Neutrophils % (auto) 57.2 % (37.0-80.0); Nucleated Red Blood Cells % 0.2 %; Platelet Count (auto) 230 10^3/uL (140-450); Red Blood Cells 5.89 10^6/uL (4.5-5.90); Red Cell Distribution Width 14.1 % (11.8-14.3)
[2024-03-02] MEDS: GUM MT SCH (09:46)
[2024-03-02] MEDS: DRONEDARONE HYDROCHLORIDE 400 MG PO SCH (09:46)
[2024-03-02] MEDS: NICOTINE POLACRILEX 4 MG MT SCH (09:46)
[2024-03-02] MEDS ORDERED: PATIENTS OWN MEDICATION (Atorvastatin Calcium 1 TAB) PO SCH (10:00)
[2024-03-02] MEDS ORDERED: PATIENTS OWN MEDICATION (Hydrochlorothiazide 12.5 MG) PO SCH (10:00)
[2024-03-02] MEDS ORDERED: PATIENTS OWN MEDICATION (Omeprazole (Prilosec) 1 CAP) PO SCH (10:00)
[2024-03-02] MEDS: SPIRONOLACTONE 25 MG TAB PO SCH (10:05)
[2024-03-02] MEDS: PANTOPRAZOLE 40 MG/10 ML VIAL INJ IV SCH (10:05)
[2024-03-02] MEDS: hydroCHLOROthiazide 25 MG TAB PO SCH (10:06)
[2024-03-02] MEDS: IPRATROPIUM BROM 0.5 MG/2.5ML INH SOL NEB ONE (15:18)
[2024-03-02] MEDS: ALBUTEROL SULF 2.5 MG/0.5ML(0.5%) NEB SOLN NEB ONE (15:18)
[2024-03-02] MEDS: FUROSEMIDE 20 MG/2 ML VIAL IV ONE (15:30)
[2024-03-02] MEDS ORDERED: FAMOTIDINE 20 MG TAB PO PRN (16:45)
[2024-03-02] MEDS: IPRATROPIUM BROM 0.5 MG/2.5ML INH SOL ONE ×2 (17:47→21:27)
[2024-03-02] MEDS: BUDESONIDE (INHALATION) 0.5 MG/2 ML NEB ONE (17:47)
[2024-03-02] MEDS: ALBUTEROL SULF 2.5 MG/0.5ML(0.5%) NEB SOLN ONE ×2 (17:47→21:27)
[2024-03-02] MEDS: IPRATROPIUM BROM 0.5 MG/2.5ML INH SOL NEB SCH (17:48)
[2024-03-02] MEDS: ALBUTEROL SULF 2.5 MG/0.5ML(0.5%) NEB SOLN NEB SCH (17:48)
[2024-03-02] MEDS: BUDESONIDE (INHALATION) 0.5 MG/2 ML NEB NEB PRN (17:48)
[2024-03-02] MEDS: METOPROLOL TARTRATE 25 MG TAB PO SCH (22:00)
[2024-03-02] MEDS: methylPREDNISolone SOD SUCC 125 MG/2 ML VL ONE (22:35)
[2024-03-02] MEDS: APIXABAN 2.5 MG TAB PO SCH (22:45)
[2024-03-02] MEDS: ATORVASTATIN 20 MG TAB ONE (22:48)
[2024-03-02] MEDS: EMPAGLIFLOZIN 10 MG TAB ONE (22:48)
[2024-03-02] MEDS: APIXABAN 2.5 MG TAB ONE (22:49)
[2024-03-02] MEDS: SACUBITRIL-VALSARTAN 24mg/26mg TAB PO ONE (22:49)
[2024-03-02] MEDS: GABAPENTIN 300 MG CAP ONE ×2 (22:49)
[2024-03-02] MEDS: methylPREDNISolone SOD SUCC 125 MG/2 ML VL IV SCH (23:53)
[2024-03-03] VITALS (16 sets, daily range): BP systolic 111–135; BP diastolic 66–82; PULSE 71–105; RESP 16–20; TEMP 97.8–99; O2SAT 91–99
[2024-03-03] MEDS: EMPAGLIFLOZIN 10 MG TAB PO SCH (06:03)
[2024-03-03] MEDS: BUDESONIDE (INHALATION) 0.5 MG/2 ML NEB ONE (06:55)
[2024-03-03] MEDS: IPRATROPIUM BROM 0.5 MG/2.5ML INH SOL ONE ×2 (06:55→10:09)
[2024-03-03] MEDS: ALBUTEROL SULF 2.5 MG/0.5ML(0.5%) NEB SOLN ONE ×2 (06:55→10:09)
[2024-03-03] MEDS: PANTOPRAZOLE 40 MG/10 ML VIAL INJ IV SCH (10:00)
[2024-03-03] MEDS: ASPirin-EC 81 mg tab PO SCH (11:20)
[2024-03-03] MEDS: amLODIPine BESYLATE 5 MG TAB PO SCH (15:13)
[2024-03-03] MEDS: FUROSEMIDE 20 MG TAB PO SCH (15:14)
[2024-03-04] VITALS (10 sets, daily range): BP systolic 116–141; BP diastolic 72–80; PULSE 74–91; RESP 16–19; TEMP 98–98.3; O2SAT 93–98
[2024-03-04 07:16] LABS: Basophils # (auto) 0 10 ^3/uL (0-0.2); Basophils % (auto) 0.1 % (0.0-2.0); Eosinophils # (auto) 0 10 ^3/uL (0-0.8); Hemoglobin 17.5 g/dL (13.5-17.5); Lymphocytes # (auto) 1.1 10 ^3/uL (0.4-5.4)
[2024-03-04 07:19] LABS: Hematocrit 53.1 % (41.0-53.0); Lymphocytes % (auto) 8.6 % (10.0-50.0); Mean Corpuscular Hemoglobin 28.6 pg (28.0-32.0); Mean Corpuscular Volume 86.9 fL (80.0-100.0); Monocytes # (auto) 0.4 10 ^3/uL (0-1.3); Neutrophils # (auto) 11.2 10 ^3/uL (1.6-8.6); Neutrophils % (auto) 88.3 % (37.0-80.0); Nucleated Red Blood Cells % 0.1 %; Platelet Count (auto) 262 10^3/uL (140-450); Red Blood Cells 6.11 10^6/uL (4.5-5.90); Red Cell Distribution Width 14.1 % (11.8-14.3); White Blood Cell 12.6 10^3/uL (4.4-10.8)
== END 2024-03-04 15:00 | disposition home or self-care (01) | DRG 244 ==
LOC: ER 14:40 → OVERFLOW 20:31 → UNDODISIN 03-02 14:45 → WEST WING 03-02 17:58
PROVIDERS: ADMIT Internal Medicine; ATTEND Student in an Organized Health Care Education/Training Program
DX: K57.31 Diverticulosis of large intestine without perforation or abscess with bleeding (principal); J96.21 Acute and chronic respiratory failure with hypoxia; Z99.81 Dependence on supplemental oxygen; J44.1 Chronic obstructive pulmonary disease with (acute) exacerbation; E78.5 Hyperlipidemia, unspecified; I10 Essential (primary) hypertension; Z79.82 Long term (current) use of aspirin
CPT/HCPCS: 36415; 36600; 74176; 80053; 81001; 82805; 83605; 83690; 84484; 85025; 85610; 85730; 94640; G0378; J2405; J2470

== ENCOUNTER 2024-09-02 10:10 | Inpatient (IN) | payer MEDICAID ==
[~2024-09-02] VITALS: Ht 175.3 cm; Wt 102.2 kg
[~2024-09-02 10:10] MED LIST changes: +FLUT1INH28 INH; +OXYC325T14 PO
[2024-09-02 10:35] VITALS: PULSE 83; RESP 19; O2SAT 96
--- NOTE | 2024-09-02 10:35 | ED.PDOC ---
HPI Comments 64 y/o with PMHx of HTN, HLD, CVA, and COPD presents to the ED for CC of chest pain. Patient states, that he has been experiencing substernal chest pain that radiates to his right arm since 08/24/24. Patient relays, that he was seen at [facility] in [facility], and was departed with unremarkable findings. Patient reports, that he has a regular scheduled appointment today (09/02/24), with his transportation broker () and was relayed to the ED for further evaluation of his symptoms. Patient endorses, that he is on 24hr daily oxygen at 4L. Patient complains of current 7/10 pain. Patient denies nausea, vomiting, shortness of breath, fever, or chills. No other symptoms or modifying factors present at this time. Time Seen by MD: 10:20 Primary Care Provider: NAVEED Reviewed Notes: Nurses Notes, Medications, Allergies Allergies: Coded Allergies: NO KNOWN ALLERGIES (Unverified , 02/16/17) Home Meds Active Scripts Clonidine Hydrochloride (Clonidine Hcl) 0.2 Mg Tab, 1 TAB PO BIDP PRN, #20 TAB 0 Refills To be used if systolic pressures above 160 or diastolic pressures above 90. Prov:DELON DEE PAC 02/22/24 Apixaban Base (ELIQUIS) 2.5 Mg Tab, 2.5 MG PO BID for 30 Days, #60 TAB Prov:TAM MORTON MD 01/02/23 Amoxicillin & Pot Clavulanate (Augmentin) 500 Mg Tab, 1 TAB PO BID, #14 TAB Prov:TAM MORTON MD 01/02/23 Dronedarone Hydrochloride (Multaq) 400 Mg Tab, 400 MG PO BID for 30 Days, #60 TAB Prov:TAM MORTON MD 01/02/23 Aspirin (Aspirin Low Dose) 81 Mg Tab, 81 MG PO DAILY for 30 Days, #30 TAB Prov:TAM MORTON MD 01/02/23 Furosemide (Lasix) 20 Mg Tb, 2 TAB PO DAILY, #60 TAB 1 Refill Prov:TAM MORTON MD 01/02/23 Empagliflozin (Jardiance) 10 Mg Tab, 10 MG PO QAM for 30 Days, #30 TAB Prov:TAM MORTON MD 01/02/23 Spironolactone (Aldactone) 25 Mg Tab, 12.5 MG PO DAILY for 30 Days, #30 TAB Prov:TAM MORTON MD 01/02/23 Sacubitril-Valsartan (Entresto 24-26 mg) 1 Tab Tab, 1 TAB PO BID for 30 Days, #60 TAB Prov:TAM MORTON MD 01/02/23 Metoprolol Tartrate (LOPRESSOR TABLET) 50 Mg Tb, 100 MG PO BID for 30 Days, #60 TAB Prov:TAM MORTON MD 01/02/23 Reported Medications Morphine Sulfate (Morphine Sulfate) 15 Mg Tab, 15 MG PO BIDP, TAB 12/28/22 Hydrochlorothiazide (Hydrochlorothiazide) 12.5 Mg Cap, 12.5 MG PO DAILY, CAP 12/28/22 Oxycodone W/ Acetaminophen (Percocet 5/325MG) 1 Tab Tb, 1 TAB PO QID, #120 TAB 12/28/22 Nicotine Polacrilex (Nicotine) 4 Mg Gum, 4 MG MT 5XD, GUM 06/20/17 Beclomethasone Dipropionate (Qvar) 40 Mcg/Act Aer, 40 MCG IN DAILYP PRN for SHORTNESS OF BREATH, AER 06/20/17 Famotidine (Famotidine) 20 Mg Tab, 40 MG PO DAILYP PRN for FOR STOMACH DISTRESS for 30 Days, MG 06/20/17 Tramadol Hcl (Tramadol Hcl) 50 Mg Tab, 50 MG PO TID, TAB 06/20/17 Amlodipine Besylate (NORVASC TABLET) 5 Mg Tb, 1 TAB PO DAILY 02/18/17 Omeprazole (PRILOSEC) 20 Mg Cap, 1 CAP PO DAILY 02/18/17 Aspirin (Aspir-81) 81 Mg Tab, 1 TAB PO DAILY 02/18/17 Cyclobenzaprine Hcl (Cyclobenzaprine Hcl) 10 Mg Tab, 10 MG PO TIDPRN for FOR MUSCLE SPASM 02/18/17 Diphenhydramine Hcl (BANOPHEN) 50 Mg Cap, 25 MG PO TID 02/18/17 Atorvastatin Calcium (ATORVASTATIN CALCIUM) 80 Mg Tab, 1 TAB PO DAILY 02/18/17 Methocarbamol (Methocarbamol) 500 Mg Tab, 1500 MG PO TID 02/18/17 Albuterol Sulfate (VENTOLIN MDI) 90 Mcg Ih, 90 MCG IN 02/16/17 Metoprolol Tartrate (Metoprolol Tartrate) 25 Mg Tab, 100 TAB PO BID 02/16/17 Gabapentin (Gabapentin) 600 Mg Tab, 800 MG PO TID, TAB 02/16/17 Information Source: Patient Mode of Arrival: Ambulatory Severity: Moderate Timing: Days Duration: Since onset Prehospital treatment: None Location: Substernal Radiation: Arm (R) Onset: At Rest Cardiac Risk Factors: Hyperlipidemia, HTN PE Risk Factors: None History of: None Modifying Factors: Nothing Associated Signs and Symptoms: None Past Medical History PAST MEDICAL HISTORY: COPD, CVA, High Lipids, HTN Surgical History: Tonsillectomy Surgical History (Other): Partial bilateral lobectomy Family History Family History: Unknown Social History Smoker: Non-Smoker Alcohol: Denies ETOH Use Drugs: Denies Drug Use Lives In: Home Constitutional: denies: chills, diaphoresis, fatigue, fever, malaise, sweats, weakness, others EENTM: denies: blurred vision, double vision, ear bleeding, ear discharge, ear drainage, ear pain, ear ringing, eye pain, eye redness, hearing loss, mouth pain, mouth swelling, nasal discharge, nose bleeding, nose congestion, nose pain, photophobia, tearing, throat pain, throat swelling, voice changes, others Respiratory: denies: cough, hemoptysis, orthopnea, SOB at rest, shortness of breath, SOB with excertion, stridor, wheezing, others Cardiovascular: reports: chest pain; denies: dizzy spells, diaphoresis, Dyspnea on exertion, edema, irregular heart beat, left arm pain, lightheadedness, palpitations, PND, syncope, others Gastrointestinal: denies: abdomen distended, abdominal pain, blood streaked bowels, constipated, diarrhea, dysphagia, difficulty swallowing, hematemesis, melena, nausea, poor appetite, poor fluid intake, rectal bleeding, rectal pain, vomiting, others Genitourinary: denies: burning, dysuria, flank pain, frequency, hematuria, incontinence, penile discharge, penile sore, pain, testicle pain, testicle swelling, urgency, others Neurological: denies: dizziness, fainting, headache, left sided numbness, left sided weakness, numbness, paresthesia, pre-existing deficit, right sided numbness, right sided weakness, seizure, speech problems, tingling, tremors, weakness, others Musculoskeletal: denies: back pain, gout, joint pain, joint swelling, muscle pain, muscle stiffness, neck pain, others Integumetry: denies: bruises, change in color, change in hair/nails, dryness, laceration, lesions, lumps, rash, wounds, others Allergic/Immunocompromised: denies: Difficulty Healing, Frequent Infections, Hives, Itching, others Hematologic/Lymphatic: denies: anemia, blood clots, easy bleeding, easy bruising, swollen glands, others Endocrine: denies: excessive hunger, excessive sweating, excessive thirst, excessive urination, flushing, intolerance to cold, intolerance to heat, unexplained weight gain, unexplained weight loss, others Psychiatric: denies: anxiety, bipolar disorder, depression, hopeless, panic disorder, schizophrenia, sleepless, suicidal, others All Other Systems: Reviewed and Negative Physical Exam General Appearance: Moderate Distress HEENT: Normal ENT Inspection, Pharynx Normal, TMs Normal Neck: Full Range of Motion, Non-Tender, Normal, Normal Inspection Respiratory: Chest Non-Tender, Lungs Clear, No Accessory Muscle Use, No Respiratory Distress, Normal Breath Sounds Cardiovascular: No Edema, No JVD, No Murmur, No Gallop, Normal Peripheral Pulses, Regular Rate/Rhythm Breast Exam: Deferred Gastrointestinal: No Organomegaly, Non Tender, No Pulsatile Mass, Normal Bowel Sounds, Soft Genitalia: Deferred Pelvic: Deferred Rectal: Deferred Extremities: No calf tenderness, Normal capillary refill, No pedal edema Musculoskeletal : Apperance: Normal Neurologic: Alert, stranding supervisor II-XII nml as Tested, Motor Weakness, Normal Affect, Normal Mood, No Sensory Deficits Cerebellar Function: Normal Reflexes: Normal Skin: Dry, Normal Color, Warm Lymphatic: No Adenopathy EKG EKG : Pulse Rate (adult): 80 [place]: Normal Cardiac Rhythm: NSR Block: None Hypertrophy: LAE, LVH ST: Normal Was a procedure done? Was a procedure done?: No CP Differential Dx Differential Diagnosis: N/A Differential Diagnosis: CHF Differential Diagnosis: Chest Wall Pain, Costochondritis X-Ray, Labs, Meds, VS Vital Signs Date Time Temp Pulse Resp B/P (MAP) Pulse Ox O2 Delivery O2 Flow Rate FiO2 09/02/24 10:47 153/107 09/02/24 10:42 98.2 79 20 153/107 (122) 95 98.2 09/02/24 10:35 83 19 96 Nasal Cannula* 4 36 09/02/24 10:35 80 09/02/24 10:28 97.3 83 19 142/105 (117) 96 97.3 09/02/24 10:17 80 Lab Test 09/02/24 10:26 Range/Units White Blood Count 6.4 4.4-10.8 10^3/uL Red Blood Count 5.91 H 4.5-5.90 10^6/uL Hemoglobin 16.4 13.5-17.5 g/dL Hematocrit 50.1 41.0-53.0 % Mean Corpuscular Volume 84.8 80.0-100.0 fL Mean Corpuscular Hemoglobin 27.8 L 28.0-32.0 pg Mean Corpuscular Hemoglobin Concent 32.7 32.0-36.0 g/dL Red Cell Distribution Width 14.6 H 11.8-14.3 % Platelet Count 263 140-450 10^3/uL Mean Platelet Volume 7.7 6.9-10.8 fL Neutrophils (%) (Auto) 58.1 37.0-80.0 % Lymphocytes (%) (Auto) 31.2 10.0-50.0 % Monocytes (%) (Auto) 7.6 0.0-12.0 % Eosinophils (%) (Auto) 2.1 0.0-7.0 % Basophils (%) (Auto) 1.0 0.0-2.0 % Neutrophils # (Auto) 3.7 1.6-8.6 10 ^3/uL Lymphocytes # (Auto) 2.0 0.4-5.4 10 ^3/uL Monocytes # (Auto) 0.5 0-1.3 10 ^3/uL Eosinophils # (Auto) 0.1 0-0.8 10 ^3/uL Basophils # (Auto) 0.1 0-0.2 10 ^3/uL Nucleated Red Blood Cells 0.1 % D-Dimer, Quantitative 0.31 0.0-0.49 mg/L FEU Sodium Level 142 136-145 mmol/L Potassium Level 3.9 3.5-5.1 mmol/L Chloride Level 105 98-107 mmol/L Carbon Dioxide Level 30 20-31 mmol/L Anion Gap 7 5-15 Blood Urea Nitrogen 13 9-23 mg/dL Creatinine 1.14 0.700-1.30 mg/dL Glomerular Filtration Rate Calc 72 >90 mL/min BUN/Creatinine Ratio 11.4 10.0-20.0 Serum Glucose 79 74-106 mg/dL Calcium Level 10.0 8.7-10.4 mg/dL Troponin I High Sensitivity 65 *H </=54 ng/L B-Type Natriuretic Peptide Pending Current Medications Medications (Trade) Dose Ordered Sig/Corey Route Start Time Stop Time Status Last Admin Aspirin 162 mg ONCE ONCE PO 09/02/24 10:30 09/02/24 10:44 DC 09/02/24 10:43 Clonidine HCl (Catapres Tablet) 0.1 mg ONCE ONCE PO 09/02/24 10:45 09/02/24 10:46 DC 09/02/24 10:47 IV Hep-Lock was established The patient was given clonidine 0.1 mg by mouth The patient was given aspirin here in the emergency department's for the chest pain The CBC is within normal limits The chemistry panel is within normal limits. The chest x-ray shows: IMPRESSION: Right basilar airspace opacity with right pleural effusion. For this right pleural effusion we will most likely get a pulmonary consult The 1st troponin level came back elevated at 65 The patient is being admitted to the hospitalist at this time Images Reviewed?: Images reviewed and evaluated by me Time of 1ST Reevaluation: 10:50 Reevaluation 1ST: Unchanged Patient Education/Counseling: Diagnosis, Treatment, Prognosis Family Education/Counseling: No Family Present Departure 1 Departure Time of Disposition: 11:03 Impression: Primary Impression: Acute myocardial ischemia Additional Impressions: Pleural effusion, right Accelerated hypertension Disposition: 09 ADMITTED INPATIENT Admit to: Tele Condition: Fair Critical Care Note Critical Care Time?: Yes (35 min-critical care time only) Stability Stability form required: Yes Unstable for transfer: Telemetry monitoring (Telemetry monitoring required), ED Physician Assesment (Clinical assesment) Heart Score Heart Score: Heart Score Response (Comments) Value History Moderate Suspicious 1 EKG Normal 0 Age 45-64 1 Risk Factors 1 or 2 risk factors 1 Troponin N/A 0 Total 3 I personally scribed for KAYLEIGH LUDWIG MD ([email or web address]) on 09/02/24 at 10:35. Electronically submitted by Connie Farr ([email or web address]). KAYLEIGH LUDWIG MD Sep 02, 2024 10:35
[2024-09-02] MEDS: ASPirin 81 mg TAB PO ONE (10:43)
[2024-09-02 10:45] LABS: Basophils # (auto) 0.1 10 ^3/uL (0-0.2); Eosinophils # (auto) 0.1 10 ^3/uL (0-0.8); Eosinophils % (auto) 2.1 % (0.0-7.0); Hematocrit 50.1 % (41.0-53.0); Hemoglobin 16.4 g/dL (13.5-17.5); Lymphocytes % (auto) 31.2 % (10.0-50.0); Mean Corpuscular Hemoglobin 27.8 pg (28.0-32.0); Mean Corpuscular Hgb Conc. 32.7 g/dL (32.0-36.0); Mean Corpuscular Volume 84.8 fL (80.0-100.0); Monocytes # (auto) 0.5 10 ^3/uL (0-1.3); Monocytes % (auto) 7.6 % (0.0-12.0); Neutrophils # (auto) 3.7 10 ^3/uL (1.6-8.6); Neutrophils % (auto) 58.1 % (37.0-80.0); Nucleated Red Blood Cells % 0.1 %; Platelet Count (auto) 263 10^3/uL (140-450); Red Blood Cells 5.91 10^6/uL (4.5-5.90); Red Cell Distribution Width 14.6 % (11.8-14.3); White Blood Cell 6.4 10^3/uL (4.4-10.8)
[2024-09-02] MEDS: cloNIDine HCL 0.1 MG TAB PO ONE (10:47)
--- NOTE | 2024-09-02 10:58 | DVH ---
XY CHEST TWO VIEWS ROUTINE, HISTORY: cp COMPARISON: 12/28/22 None TECHNICAL DATA: 2 view of the chest was obtained. FINDINGS: Lines and tubes: None Cardiomediastinal silhouette: normal Pulmonary vasculature: normal Lung expansion: normal Lung airspace: Right basilar airspace opacity with right pleural effusion. Lung interstitium: normal Pleura: Pneumothorax: no Bones: Unremarkable Other: no IMPRESSION: Right basilar airspace opacity with right pleural effusion.
[2024-09-02 10:59] LABS: Chloride 105 mmol/L (98-107); Potassium 3.9 mmol/L (3.5-5.1); Sodium 142 mmol/L (136-145)
[2024-09-02 11:00] LABS: Anion Gap 7 (5-15); Carbon Dioxide 30 mmol/L (20-31)
[2024-09-02 11:05] LABS: BUN/Creatinine Ratio 11.4 (10.0-20.0); Blood Urea Nitrogen 13 mg/dL (9-23); Glucose 79 mg/dL (74-106)
[2024-09-02 12:00] LABS: Urine Bacteria None Seen /hpf (None Seen)
[2024-09-02 12:22] LABS: Urine Blood Negative /uL (Negative); Urine Clarity Clear (Clear); Urine Color Yellow (Yellow); Urine Protein, UAD Negative (Negative); Urine Specific Gravity 1.024 (1.001-1.035); Urine Squamous Epithelial Cell None Seen /hpf (<5); Urine Urobilinogen Normal (Negative); Urine WBC 1 /HPF (0-3)
[2024-09-02] MEDS ORDERED: GABA800T97 PO ×2 (13:42)
[2024-09-02] MEDS ORDERED: AMLO1TAB21 PO (13:42)
[2024-09-02] MEDS ORDERED: OXY10CRT PO ×2 (13:42)
[2024-09-02] MEDS ORDERED: DOCUSATE SOD 100 MG CAP PO PRN (13:45)
[2024-09-02] MEDS ORDERED: ONDANSETRON HCL 4 MG/2 ML VIAL IV PRN (13:45)
[2024-09-02] MEDS ORDERED: ACETAMINOPHEN 325 MG TAB PO PRN (13:45)
[2024-09-02] MEDS ORDERED: MORPHINE SULFATE INJ 2 MG/ml SYRG IV PRN (13:45)
[2024-09-02] MEDS ORDERED: FAMOTIDINE 20 MG TAB PO PRN (13:45)
[2024-09-02] MEDS ORDERED: NITROGLYCERIN 0.4 MG SL TAB SL PRN (13:45)
--- NOTE | 2024-09-02 14:38 | DVHHP2 ---
History of Present Illness Reason for Visit: Chest pain History of Present Illness Daryl Chang is a 64-year-old male with past medical history of hypertension, hyperlipidemia, COPD, and chronic pain who came in for right sided chest pain. Patient states the pain began about 10 days ago. He states it is on the right side of his chest and radiates to his right arm. The pain is worse with exertion, even standing makes it worse. He also states the pain worsens with deep breathing. On 08/26/2024 the patient was down the hill, the pain became so bad he called EMS and was taken to [facility]. He states nothing was found and he was discharged home. Today he went to see his primary senior manager mergers & acquisitions Dr. Jose F Castellanos and was told to come to the ER for further evaluation. 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) Past Surgical History: Other (2 partial lobectomy), Tonsillectomy Smoke: No ALCOHOL: none Drugs: None Lives: with Family Domestic Violence: Neg Review of Systems Constitutional: No: Fever, Chills, Sweats, Weakness, Malaise, Other Eyes: No: Pain, Vision change, Conjunctivae inflammation, Eyelid inflammation, Other, Redness ENT: No: Ear pain, Ear discharge, Nose pain, Nose discharge, Nose congestion, Mouth pain, Mouth swelling, Throat pain, Throat swelling, Other Respiratory: No: Cough, Dry, Shortness of breath, SOB with excertion, Wheezing, Hemoptysis, Pleuritic Pain, Sputum, Wheezing, Other Cardiovascular: Chest Pain (right sided that radiates to right arm); No: Palpitations, Orthopnea, Paroxysmal Noc. Dyspnea, Edema, Lt Headedness, Other Gastrointestinal: No: Nausea, Vomiting, Abdominal Pain, Diarrhea, Constipation, Melena, Hematochezia, Other Genitourinary: No Dysuria, No Frequency, No Incontinence, No Hematuria, No Retention, No Other Musculoskeletal: No: other, neck pain, shoulder pain, arm pain, back pain, hand pain, leg pain, foot pain Skin: No: Rash, Lesions, Jaundice, Bruising, Other Neurological: No: Weakness, Numbness, Incoordination, Change in speech, Confusion, Seizures, Other Allergies: Coded Allergies: NO KNOWN ALLERGIES (Unverified , 02/16/17) Medications Current Medications Medications Dose Ordered Sig/Corey Route Start Time Stop Time Status Last Admin Dose Admin Acetaminophen/ Hydrocodone Bitart 1 tab Q4HP PRN PO 09/02/24 13:45 UNV Ondansetron HCl 4 mg Q4HP PRN IV 09/02/24 13:45 UNV Docusate Sodium 100 mg BIDPRN PRN PO 09/02/24 13:45 UNV Acetaminophen 650 mg Q6HP PRN PO 09/02/24 13:45 UNV Nitroglycerin 0.4 mg Q5MINP PRN SL 09/02/24 13:45 UNV Morphine Sulfate 2 mg Q30M PRN IV 09/02/24 13:45 UNV Famotidine 40 mg DAILYP PRN PO 09/02/24 13:45 UNV Methocarbamol 1,500 mg TID PO 09/02/24 14:00 UNV Aspirin 81 mg DAILY PO 09/03/24 10:00 UNV Oxycodone HCl 10 mg QIDP PO 09/02/24 18:00 UNV Patient Own Medication 1 tab DAILY PO 09/03/24 10:00 UNV Patient Own Medication 1 tab QID PO 09/02/24 18:00 UNV Exam Vital Signs Vital Signs Date Time Temp Pulse Resp B/P (MAP) Pulse Ox O2 Delivery O2 Flow Rate FiO2 09/02/24 13:11 75 09/02/24 10:47 153/107 09/02/24 10:42 98.2 20 95 98.2 09/02/24 10:35 Nasal Cannula* 4 36 General Appearance: Alert, Oriented X3, Cooperative, mild distress HEENT: Atraumatic, PERRLA, Mucous membr. moist/pink Respiratory: Normal air movement, Other (diminished breath sounds on the right) Cardiovascular: Regular rate, Normal S1, Normal S2, No murmurs Abdominal: Normal bowel sounds, Soft, No tenderness, No hepatospenomegaly Extremities: No clubbing, No cyanosis, No edema, Normal pulses, No tenderness/swelling Skin: No rashes, No breakdown, No significant lesion Neuro: Normal gait, Normal speech, Strength at 5/5 X4 ext, Normal tone Psych/Mental Status: Mental status NL, Mood NL Labs/Xrays Labs Test 09/02/24 13:16 09/02/24 11:30 09/02/24 10:26 Range/Units Urine Color Yellow Yellow Urine Clarity Clear Clear Urine pH 5.0 5.0-9.0 Urine Specific [place] 1.024 1.001-1.035 Urine Protein Negative Negative Urine Ketones Negative Negative Urine Blood Negative Negative /uL Urine Nitrite Negative Negative Urine Bilirubin Negative Negative Urine Urobilinogen Normal Negative mg/dL Urine Leukocyte Esterase Negative Negative /uL Urine RBC 1 0 - 3 /hpf Urine Microscopic WBC 1 0-3 /HPF Urine Squamous Epithelial Cells None seen <5 /hpf Urine Bacteria None seen None Seen /hpf Urine Glucose Normal Normal mg/dL White Blood Count 6.4 4.4-10.8 10^3/uL Red Blood Count 5.91 H 4.5-5.90 10^6/uL Hemoglobin 16.4 13.5-17.5 g/dL Hematocrit 50.1 41.0-53.0 % Mean Corpuscular Volume 84.8 80.0-100.0 fL Mean Corpuscular Hemoglobin 27.8 L 28.0-32.0 pg Mean Corpuscular Hemoglobin Concent 32.7 32.0-36.0 g/dL Red Cell Distribution Width 14.6 H 11.8-14.3 % Platelet Count 263 140-450 10^3/uL Mean Platelet Volume 7.7 6.9-10.8 fL Neutrophils (%) (Auto) 58.1 37.0-80.0 % Lymphocytes (%) (Auto) 31.2 10.0-50.0 % Monocytes (%) (Auto) 7.6 0.0-12.0 % Eosinophils (%) (Auto) 2.1 0.0-7.0 % Basophils (%) (Auto) 1.0 0.0-2.0 % Neutrophils # (Auto) 3.7 1.6-8.6 10 ^3/uL Lymphocytes # (Auto) 2.0 0.4-5.4 10 ^3/uL Monocytes # (Auto) 0.5 0-1.3 10 ^3/uL Eosinophils # (Auto) 0.1 0-0.8 10 ^3/uL Basophils # (Auto) 0.1 0-0.2 10 ^3/uL Nucleated Red Blood Cells 0.1 % D-Dimer, Quantitative 0.31 0.0-0.49 mg/L FEU Sodium Level 142 136-145 mmol/L Potassium Level 3.9 3.5-5.1 mmol/L Chloride Level 105 98-107 mmol/L Carbon Dioxide Level 30 20-31 mmol/L Anion Gap 7 5-15 Blood Urea Nitrogen 13 9-23 mg/dL Creatinine 1.14 0.700-1.30 mg/dL Glomerular Filtration Rate Calc 72 >90 mL/min BUN/Creatinine Ratio 11.4 10.0-20.0 Serum Glucose 79 74-106 mg/dL Calcium Level 10.0 8.7-10.4 mg/dL B-Type Natriuretic Peptide 292.57 0-100 pg/mL XY CHEST TWO VIEWS ROUTINE, FINDINGS: Lines and tubes: None Cardiomediastinal silhouette: normal Pulmonary vasculature: normal Lung expansion: normal Lung airspace: Right basilar airspace opacity with right pleural effusion. Lung interstitium: normal Pleura: Pneumothorax: no Bones: Unremarkable Other: no IMPRESSION: Right basilar airspace opacity with right pleural effusion. 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 Procedure Category Date Status Time Admit ADMIT 09/02/24 Transmitted 13:35 Code Status CODE 09/02/24 Transmitted 13:35 Hydrocodone-Acet PHA 09/02/24 Logged 5/325mg Tab ([place] 13:45 Ondansetron Hcl PHA 09/02/24 Logged (Zofran) 13:45 Docusate Sodium PHA 09/02/24 Logged Capsule (Colace 13:45 Complete Blood Count LAB 09/03/24 Verified 04:00 Comprehensive LAB 09/03/24 Verified Metabolic Panel 04:00 Cardiac DIET 09/02/24 Transmitted Diet-2gna,Lofat,Lochol Dinner Condition: Serious BETTY 09/02/24 In Process 13:35 Acetaminophen Tablet PHA 09/02/24 Logged (Tylenol Tablet) 13:45 Nitroglycerin PHA 09/02/24 Logged Sublingual (Ntrostat 13:45 Morphine Sulfate PHA 09/02/24 Logged Injection 13:45 Stat Ekg For Chest BETTY 09/02/24 In Process Pain 13:35 Notify Md Of Changes [facility] 09/02/24 In Process From Base 13:35 Entrepreneurial Finance Professor For [facility] 09/02/24 In Process 24 Hours 13:35 Emergency Dysrhythmia [facility] 09/02/24 In Process Protocol 13:35 Rhythm Strips Once [facility] 09/02/24 In Process Every Shift 13:35 Oxygen By Nasal RT 09/02/24 Transmitted Cannula 13:35 Famotidine Tablet PHA 09/02/24 Logged (Pepcid Tablet) 13:45 Methocarbamol PHA 09/02/24 Logged (Robaxin) 14:00 Aspirin Enteric PHA 09/03/24 Transmitted Coated Tablet 10:00 Oxycodone Er Tablet PHA 09/02/24 Transmitted (Oxycontin Er Tablet 18:00 (Nf) Amlodipine PHA 09/03/24 Transmitted Besylate 10:00 (Nf) Gabapentin PHA 09/02/24 Transmitted 18:00 Date of Service: Sep 02, 2024 Billing Provider: DESMOND TEIXEIRA Common Visit Codes: 37296-THSZOBF INP/OBS CARE (MOD) DESMOND TEIXEIRA Sep 02, 2024 14:38
[2024-09-02] MEDS ORDERED: IPRATROPIUM BROM 0.5 MG/2.5ML INH SOL NEB PRN (14:45)
[2024-09-02] MEDS ORDERED: ALBUTEROL SULF 2.5 MG/0.5ML(0.5%) NEB SOLN NEB PRN (14:45)
[2024-09-02] MEDS: cefTRIAXone 1GM/50ML D5W 50 ML IV ONE (16:00)
[2024-09-02] MEDS: AZITHROMYCIN 500MG/ 250ML 250 ML IV ONE (16:00)
[2024-09-02 16:42] VITALS: BP 153/95; PULSE 65; RESP 97; TEMP 98.2; O2SAT 97
[2024-09-02] MEDS: GABAPENTIN 400 MG CAP PO SCH (17:15)
[2024-09-02] MEDS ORDERED: hydrALAZINE HCL 20 MG/ML VL IV PRN (17:45)
[2024-09-02] MEDS ORDERED: oxyCODONE ER 10 MG TAB PO SCH (18:00)
[2024-09-02] MEDS: HYDROcodone-ACET 5/325MG TAB PO PRN (18:14)
[2024-09-02 18:26] VITALS: O2SAT 97
--- NOTE | 2024-09-02 19:05 | ECG ---
[facility] Test Date: 2024-09-02 Test Time: 10:17:31 Pat Name: LOPEZ BECKWITH Department: ED Room: 0297T Gender: M Emergency Response Technician: : 1960 Requested By: KAYLEIGH LUDWIG Order Number: [id number] Reading MD: Evan Oliver Measurements Intervals [place] Rate: 80 P: 81 SC: 162 QRS: 60 QRSD: 129 T: 206 QT: 399 QTc: 461 Interpretive Statements Sinus rhythm Probable left atrial enlargement LVH with secondary repolarization abnormality Anterior ST elevation, probably due to LVH Baseline wander in lead(s) V2 Electronically Signed On 09-03-2024 13:15:04 PDT by Evan Oliver Please click the below link to view image of tracing.
--- NOTE | 2024-09-02 19:05 | ECG ---
[facility] Test Date: 2024-09-02 Test Time: 11:12:09 Pat Name: LOPEZ BECKWITH Department: ER Room: 0297T Gender: M Director Banking: HUMPHREY : 1960 Requested By: KAYLEIGH LUDWIG Order Number: [id number] Reading MD: Evan Oliver Measurements Intervals [place] Rate: 78 P: 79 VT: 164 QRS: 40 QRSD: 98 T: 203 QT: 409 QTc: 466 Interpretive Statements Sinus rhythm Probable left atrial enlargement Abnrm T, consider ischemia, anterolateral lds Borderline ST elevation, anterior leads Baseline wander in lead(s) II,III,aVR,aVF,V6 Electronically Signed On 09-03-2024 13:16:12 PDT by Evan Oliver Please click the below link to view image of tracing.
--- NOTE | 2024-09-02 19:06 | ECG ---
[facility] Test Date: 2024-09-02 Test Time: 13:11:08 Pat Name: LOPEZ BECKWITH Department: ER Room: 0297T Gender: M Manager Event: HUMPHREY : 1960 Requested By: KAYLEIGH LUDWIG Order Number: [id number] Reading MD: Evan Oliver Measurements Intervals [employer] Rate: 75 P: 70 FL: 161 QRS: 42 QRSD: 120 T: 206 QT: 421 QTc: 471 Interpretive Statements Sinus rhythm Probable left atrial enlargement Nonspecific intraventricular conduction delay Abnormal T, consider ischemia, diffuse leads Borderline ST elevation, anterior leads Electronically Signed On 09-03-2024 13:17:44 PDT by Evan Oliver Please click the below link to view image of tracing.
[2024-09-02 20:00] VITALS: PULSE 68; RESP 14; O2SAT 96
[2024-09-02] MEDS: METHOCARBAMOL 500 MG TAB PO SCH (20:52)
[2024-09-02 21:02] VITALS: BP 140/85; PULSE 65; RESP 17; TEMP 97.4; O2SAT 100
[2024-09-02 22:04] VITALS: PULSE 62; RESP 17; O2SAT 100
--- NOTE | 2024-09-03 00:02 | DVHINCON2 ---
Date of service: Sep 02, 2024 Referring Physician Mando Reason for Consultation Elevated troponin History of Present Illness This is a 64 year old male with a PMH of HTN, HLD, CVA, and COPD who presented to the ED with complaints of chest pain. Patient states that he has been experiencing substernal chest pain that radiates to his right arm since 08/24/24. Patient relays, that he was seen at [facility] in [facility], and was departed with unremarkable findings. Patient had a regular scheduled appointment today with my office and was referred to the ED for further evaluation of his symptoms. Patient endorses, that he is on 24hr daily oxygen at 4L. Patient complains of current 7/10 pain. EKG is NSR at 80. BP elevated 142/105 and received Clonidine. CBC is within normal limits. UA is negative for infection. Troponin 65 > 59 > 54. BNP 292.57. Chest x-ray shows right basilar airspace opacity with right pleural effusion. EKG is NSR at 78. Patient was admitted to the hospital. I am asked to consult on this patient. Family History: Patient reports no known family medical history. Allergies: Coded Allergies: NO KNOWN ALLERGIES (Unverified , 02/16/17) Home Meds Active Scripts Clonidine Hydrochloride (Clonidine Hcl) 0.2 Mg Tab, 1 TAB PO BIDP PRN, #20 TAB 0 Refills To be used if systolic pressures above 160 or diastolic pressures above 90. Prov:DELON DEE PAC 02/22/24 Dronedarone Hydrochloride (Multaq) 400 Mg Tab, 400 MG PO BID for 30 Days, #60 TA B Prov:TAM MORTON MD 01/02/23 Furosemide (Lasix) 20 Mg Tb, 2 TAB PO DAILY, #60 TAB 1 Refill Prov:TAM MORTON MD 01/02/23 Empagliflozin (Jardiance) 10 Mg Tab, 10 MG PO QAM for 30 Days, #30 TAB Prov:TAM MORTON MD 01/02/23 Spironolactone (Aldactone) 25 Mg Tab, 12.5 MG PO DAILY for 30 Days, #30 TAB Prov:TAM MORTON MD 01/02/23 Sacubitril-Valsartan (Entresto 24-26 mg) 1 Tab Tab, 1 TAB PO BID for 30 Days, #60 TAB Prov:TAM MORTON MD 01/02/23 Metoprolol Tartrate (LOPRESSOR TABLET) 50 Mg Tb, 100 MG PO BID for 30 Days, #60 TAB Prov:TAM MORTON MD 01/02/23 Reported Medications Gabapentin (Gabapentin) 800 Mg Tab, 1 TAB PO QID 09/02/24 Amlodipine Besylate (Amlodipine Besylate) 2.5 Mg Tab, 1 TAB PO DAILY 09/02/24 Oxycodone Hcl (OxyCONTIN ER Tablet) 10 Mg Tb, 1 TAB PO QIDP, #60 TAB 09/02/24 Morphine Sulfate (Morphine Sulfate) 15 Mg Tab, 15 MG PO BIDP, TAB 12/28/22 Hydrochlorothiazide (Hydrochlorothiazide) 12.5 Mg Cap, 12.5 MG PO DAILY, CAP 12/28/22 Nicotine Polacrilex (Nicotine) 4 Mg Gum, 4 MG MT 5XD, GUM 06/20/17 Beclomethasone Dipropionate (Qvar) 40 Mcg/Act Aer, 40 MCG IN DAILYP PRN for SHORTNESS OF BREATH, AER 06/20/17 Famotidine (Famotidine) 20 Mg Tab, 40 MG PO DAILYP PRN for FOR STOMACH DISTRESS for 30 Days, MG 06/20/17 Tramadol Hcl (Tramadol Hcl) 50 Mg Tab, 50 MG PO TID, TAB 06/20/17 Omeprazole (PRILOSEC) 20 Mg Cap, 1 CAP PO DAILY 02/18/17 Aspirin (Aspir-81) 81 Mg Tab, 1 TAB PO DAILY 02/18/17 Cyclobenzaprine Hcl (Cyclobenzaprine Hcl) 10 Mg Tab, 10 MG PO TIDPRN for FOR MUSCLE SPASM 02/18/17 Diphenhydramine Hcl (BANOPHEN) 50 Mg Cap, 25 MG PO TID 02/18/17 Atorvastatin Calcium (ATORVASTATIN CALCIUM) 80 Mg Tab, 1 TAB PO DAILY 02/18/17 Methocarbamol (Methocarbamol) 500 Mg Tab, 1500 MG PO TID 02/18/17 Albuterol Sulfate (VENTOLIN MDI) 90 Mcg Ih, 90 MCG IN 02/16/17 Discontinued Reported Medications Oxycodone W/ Acetaminophen (Percocet 5/325MG) 1 Tab Tb, 1 TAB PO QID, #120 TAB 12/28/22 Amlodipine Besylate (NORVASC TABLET) 5 Mg Tb, 1 TAB PO DAILY 02/18/17 Metoprolol Tartrate (Metoprolol Tartrate) 25 Mg Tab, 100 TAB PO BID 02/16/17 Gabapentin (Gabapentin) 600 Mg Tab, 800 MG PO TID, TAB 02/16/17 Discontinued Scripts Apixaban Base (ELIQUIS) 2.5 Mg Tab, 2.5 MG PO BID for 30 Days, #60 TAB Prov:TAM MORTON MD 01/02/23 Amoxicillin & Pot Clavulanate (Augmentin) 500 Mg Tab, 1 TAB PO BID, #14 TAB Prov:TAM MORTON MD 01/02/23 Aspirin (Aspirin Low Dose) 81 Mg Tab, 81 MG PO DAILY for 30 Days, #30 TAB Prov:TAM MORTON MD 01/02/23 Current Medications Current Medications Medications (Trade) Dose Ordered Sig/Corey Route PRN Reason Start Time Stop Time Status Last Admin Acetaminophen/ Hydrocodone Bitart ([place] 5/325MG Tab) 1 tab Q4HP PRN PO MODERATE PAIN (4-6 PAIN SCALE) 09/02/24 13:45 09/02/24 18:14 Ondansetron HCl (Zofran) 4 mg Q4HP PRN IV NAUSEA / VOMITING 09/02/24 13:45 Docusate Sodium (Colace Capsule) 100 mg BIDPRN PRN PO FOR CONSTIPATION 09/02/24 13:45 Acetaminophen (Tylenol Tablet) 650 mg Q6HP PRN PO PAIN SCALE 1-3 OR TEMP>100.4 09/02/24 13:45 Nitroglycerin (Ntrostat Sublingual) 0.4 mg Q5MINP PRN SL FOR CHEST PAIN 09/02/24 13:45 Morphine Sulfate 2 mg Q30M PRN IV FOR CHEST PAIN 09/02/24 13:45 Famotidine (Pepcid Tablet) 40 mg DAILYP PRN PO FOR STOMACH DISTRESS 09/02/24 13:45 Methocarbamol (Robaxin) 1,500 mg TID PO 09/02/24 14:00 Hold Aspirin (Ecotrin Enteric Coated Tablet) 81 mg DAILY PO 09/03/24 10:00 Oxycodone HCl (OxyCONTIN ER Tablet) 10 mg QIDP PO 09/02/24 18:00 Hold Amlodipine Besylate (Norvasc Tablet) 2.5 mg DAILY PO 09/03/24 10:00 Gabapentin (Neurontin Capsule) 800 mg QID PO 09/02/24 18:00 09/02/24 17:15 Ceftriaxone Sodium 50 ml @ 100 mls/hr DAILY@09 IV 09/03/24 09:00 Azithromycin 250 ml @ 125 mls/hr DAILY IV 09/03/24 10:00 Ipratropium [place] (Atrovent Medneb) 0.5 mg Q4HPRN PRN NEB SHORTNESS OF BREATH 09/02/24 14:45 Albuterol (Ventolin Medneb) 2.5 mg Q4HPRN PRN NEB SHORTNESS OF BREATH 09/02/24 14:45 Hydralazine HCl (Apresoline Injection) 10 mg Q6HP PRN IV SBP>150 09/02/24 17:45 Review of Systems Constitutional: No: Fever, Chills, Sweats, Weakness, Malaise, Other Eyes: No: Pain, Vision change, Conjunctivae inflammation, Eyelid inflammation, Other, Redness ENT: No: Ear pain, Ear discharge, Nose pain, Nose discharge, Nose congestion, Mouth pain, Mouth swelling, Throat pain, Throat swelling, Other Respiratory: No: Cough, Dry, Shortness of breath, SOB with excertion, Wheezing, Hemoptysis, Pleuritic Pain, Sputum, Wheezing, Other Cardiovascular: Chest Pain (right sided that radiates to right arm); No: Palpitations, Orthopnea, Paroxysmal Noc. Dyspnea, Edema, Lt Headedness, Other Gastrointestinal: No: Nausea, Vomiting, Abdominal Pain, Diarrhea, Constipation, Melena, Hematochezia, Other Genitourinary: No Dysuria, No Frequency, No Incontinence, No Hematuria, No Retention, No Other Musculoskeletal: No: other, neck pain, shoulder pain, arm pain, back pain, hand pain, leg pain, foot pain Skin: No: Rash, Lesions, Jaundice, Bruising, Other Neurological: No: Weakness, Numbness, Incoordination, Change in speech, C onfusion, Seizures, Other Vital Signs Vital Signs Date Time Temp Pulse Resp B/P (MAP) Pulse Ox O2 Delivery O2 Flow Rate FiO2 09/02/24 20:00 66 09/02/24 16:42 98.2 97 153/95 97 2.0 28 98.2 09/02/24 10:35 Nasal Cannula* Physical Exam GENERAL: Alert and oriented x 3. No acute distress. EYES: PERRL, EOMI. Anicteric. HENT: Moist mucous membranes. LUNGS: Diminished breath sounds on the right. CARDIOVASCULAR: Regular rate and rhythm. ABDOMEN: Soft, non-tender and non-distended. EXTREMITIES: No edema. NEUROLOGIC: No focal neurological deficits. SKIN: Warm, dry. Labs/Diagnostic Data Labs Test 09/02/24 13:16 09/02/24 11:30 09/02/24 10:26 Range/Units Troponin I High Sensitivity 54 </=54 ng/L Urine Color Yellow Yellow Urine Clarity Clear Clear Urine pH 5.0 5.0-9.0 Urine Specific [place] 1.024 1.001-1.035 Urine Protein Negative Negative Urine Ketones Negative Negative Urine Blood Negative Negative /uL Urine Nitrite Negative Negative Urine Bilirubin Negative Negative Urine Urobilinogen Normal Negative mg/dL Urine Leukocyte Esterase Negative Negative /uL Urine RBC 1 0 - 3 /hpf Urine Microscopic WBC 1 0-3 /HPF Urine Squamous Epithelial Cells None seen <5 /hpf Urine Bacteria None seen None Seen /hpf Urine Glucose Normal Normal mg/dL White Blood Count 6.4 4.4-10.8 10^3/uL Red Blood Count 5.91 H 4.5-5.90 10^6/uL Hemoglobin 16.4 13.5-17.5 g/dL Hematocrit 50.1 41.0-53.0 % Mean Corpuscular Volume 84.8 80.0-100.0 fL Mean Corpuscular Hemoglobin 27.8 L 28.0-32.0 pg Mean Corpuscular Hemoglobin Concent 32.7 32.0-36.0 g/dL Red Cell Distribution Width 14.6 H 11.8-14.3 % Platelet Count 263 140-450 10^3/uL Mean Platelet Volume 7.7 6.9-10.8 fL Neutrophils (%) (Auto) 58.1 37.0-80.0 % Lymphocytes (%) (Auto) 31.2 10.0-50.0 % Monocytes (%) (Auto) 7.6 0.0-12.0 % Eosinophils (%) (Auto) 2.1 0.0-7.0 % Basophils (%) (Auto) 1.0 0.0-2.0 % Neutrophils # (Auto) 3.7 1.6-8.6 10 ^3/uL Lymphocytes # (Auto) 2.0 0.4-5.4 10 ^3/uL Monocytes # (Auto) 0.5 0-1.3 10 ^3/uL Eosinophils # (Auto) 0.1 0-0.8 10 ^3/uL Basophils # (Auto) 0.1 0-0.2 10 ^3/uL Nucleated Red Blood Cells 0.1 % D-Dimer, Quantitative 0.31 0.0-0.49 mg/L FEU Sodium Level 142 136-145 mmol/L Potassium Level 3.9 3.5-5.1 mmol/L Chloride Level 105 98-107 mmol/L Carbon Dioxide Level 30 20-31 mmol/L Anion Gap 7 5-15 Blood Urea Nitrogen 13 9-23 mg/dL Creatinine 1.14 0.700-1.30 mg/dL Glomerular Filtration Rate Calc 72 >90 mL/min BUN/Creatinine Ratio 11.4 10.0-20.0 Serum Glucose 79 74-106 mg/dL Calcium Level 10.0 8.7-10.4 mg/dL B-Type Natriuretic Peptide 292.57 0-100 pg/mL Assessment Accelerated hypertension. Elevated troponin. Cardiac pauses. Hypertension. Hyperlipidemia. COPD. Plan/Recommendation I agree with your ongoing assessment and care of plan. Telemetry reviewed. Morphine and [place] for pain management. Amlodipine. Aspirin. IV antibiotics as ordered. IV Hydralazine for SBP >150. Nitro SL. Additional plan as per the hospital course. A total of 45 minutes was spent reviewing the patient record, examining the patient, making a diagnostic and therapeutic plan, discussing this plan with medical personnel, following up on diagnostic studies and following the patient for clinical stability excluding any and all procedures. At least 50% of this time was spent in direct, [id number] contact. Plan discussed with: Patient FANG KAUFMAN MD Sep 02, 2024 21:15
[2024-09-03 01:00] VITALS: BP 140/100; PULSE 60; RESP 17; TEMP 97.3; O2SAT 98
[2024-09-03 05:00] VITALS: BP 155/91; PULSE 68; RESP 17; TEMP 97.4; O2SAT 95
[2024-09-03 06:39] VITALS: O2SAT 95
[2024-09-03 08:00] VITALS: PULSE 66; PULSE 70; RESP 17; O2SAT 96
[2024-09-03 08:06] LABS: Basophils # (auto) 0 10 ^3/uL (0-0.2); Basophils % (auto) 0.5 % (0.0-2.0); Eosinophils # (auto) 0.2 10 ^3/uL (0-0.8); Hematocrit 45.8 % (41.0-53.0); Lymphocytes # (auto) 1.3 10 ^3/uL (0.4-5.4); Mean Corpuscular Hemoglobin 27.5 pg (28.0-32.0); Mean Corpuscular Hgb Conc. 32.8 g/dL (32.0-36.0); Mean Corpuscular Volume 84.1 fL (80.0-100.0); Monocytes # (auto) 0.3 10 ^3/uL (0-1.3); Neutrophils # (auto) 4.7 10 ^3/uL (1.6-8.6); Neutrophils % (auto) 71.5 % (37.0-80.0); Nucleated Red Blood Cells % 0.1 %; Platelet Count (auto) 212 10^3/uL (140-450); Red Blood Cells 5.45 10^6/uL (4.5-5.90); Red Cell Distribution Width 14.2 % (11.8-14.3); White Blood Cell 6.5 10^3/uL (4.4-10.8)
[2024-09-03 08:31] LABS: Alanine Aminotransferase 18 U/L (7-40); Albumin 4.2 g/dL (3.2-4.8); Alkaline Phosphatase 90 U/L (46-116); Anion Gap 6 (5-15); Aspartate Aminotransferase 20 U/L (13-40); BUN/Creatinine Ratio 13.5 (10.0-20.0); Blood Urea Nitrogen 12 mg/dL (9-23); Calcium 9.5 mg/dL (8.7-10.4); Carbon Dioxide 28 mmol/L (20-31); Glucose 96 mg/dL (74-106); Sodium 141 mmol/L (136-145); Total Protein 6.5 g/dL (5.7-8.2)
[2024-09-03 08:37] LABS: Chloride 107 mmol/L (98-107)
[2024-09-03 08:39] VITALS: BP 160/89; PULSE 72; RESP 17; TEMP 98.1; O2SAT 95
[2024-09-03] MEDS: ASPirin-EC 81 mg tab PO SCH (09:21)
[2024-09-03] MEDS: amLODIPine BESYLATE 5 MG TAB PO SCH (09:23)
[2024-09-03] MEDS: AZITHROMYCIN 500MG/ 250ML 250 ML IV SCH (09:23)
[2024-09-03] MEDS: cefTRIAXone 1GM/50ML D5W 50 ML IV SCH (09:23)
[2024-09-03] MEDS ORDERED: PATIENTS OWN MEDICATION (Hydrochlorothiazide 12.5 MG) PO SCH (10:00)
[2024-09-03] MEDS ORDERED: MORPHINE SULFATE 15 MG PO SCH (10:00)
[2024-09-03] MEDS ORDERED: PATIENTS OWN MEDICATION (Atorvastatin Calcium 1 TAB) PO SCH (10:00)
[2024-09-03 10:51] LABS: Triglycerides 142 mg/dL (< 150)
[2024-09-03 10:52] LABS: LDL Cholesterol 155 mg/dL (< 100)
[2024-09-03 10:54] LABS: Cholesterol 213 mg/dL (< 200); HDL Cholesterol 37 mg/dL (40-59)
[2024-09-03] MEDS: SPIRONOLACTONE 25 MG TAB PO SCH (11:12)
[2024-09-03] MEDS: METOPROLOL TARTRATE 50 MG TAB PO SCH (11:13)
[2024-09-03] MEDS: FUROSEMIDE 20 MG TAB PO SCH (11:16)
[2024-09-03] MEDS: SACUBITRIL-VALSARTAN 24mg/26mg TAB PO SCH (11:35)
--- NOTE | 2024-09-03 12:47 | DVH ---
Bilateral Chest Sonogram Clinical history: pleural effusion Technique: Limited sonographic evaluation of the right and left chest was performed. Findings/Impression: There is a no pleural effusion.
[2024-09-03 13:00] VITALS: BP 134/80; PULSE 66; RESP 17; TEMP 97.4; O2SAT 96
--- NOTE | 2024-09-03 13:59 | DVH ---
CLINICAL HISTORY: cervical spondylosis TECHNIQUE: CT exam of the cervical spine was performed without intravenous contrast. This exam was pe rformed according to our departmental dose optimization program. Up-to-date CT equipment and radiatio n dose reduction techniques are utilized as appropriate. CTDI: 25.09 DLP: 651.71 WID: COMPARISON: None FINDINGS: There is normal cervical alignment. The vertebral body heights are maintained. No acute cervical frac ture or subluxation is identified. Multilevel degenerative disc disease with mild multilevel disc space narrowing and osteophyte formati on of the cervical spine. At C2-C3 there is facet and uncovertebral hypertrophy resulting in mild bilateral neural foraminal st enosis and no significant spinal stenosis. At C3-C4, there is facet and uncovertebral hypertrophy and a disc osteophyte complex resulting in mil d spinal stenosis , moderate to severe left and moderate right neural foraminal stenosis. At C4-C5, there is facet and uncovertebral hypertrophy and a disc osteophyte complex resulting in mil d spinal stenosis and moderate bilateral neural foraminal stenosis At C5-C6, there is a disc osteophyte complex, facet and uncovertebral hypertrophy resulting in modera te bilateral neural foraminal stenosis and mild spinal stenosis. At C6-C7, there is facet and uncovertebral hypertrophy and a disc osteophyte complex without signific ant spinal stenosis, moderate bilateral (greater on the right) neural foraminal stenosis At C7-T1 there is facet hypertrophy and uncovertebral hypertrophy resulting in mild bilateral neural foraminal stenosis. The paraspinous soft tissues are unremarkable. The lung apices are clear. IMPRESSION: 1. No acute fracture or traumatic malalignment. 2. Multilevel degenerative neural foraminal stenosis up to moderate to severe degree on the left at C 3-C4 and moderate at multiple levels as above. 3. Mild degenerative multilevel spinal stenosis.
--- NOTE | 2024-09-03 19:41 | DVHDSRES ---
Discharge Summary Date of Admission Resident Creating Document: GRETEL JACOME RESIDENT Sep 02, 2024 at 13:35 Date of Discharge: Sep 03, 2024 Admitting Diagnosis chest pain Wounds: Labs/Diagnostic Data: Laboratory Results Test 09/03/24 07:34 09/02/24 13:16 09/02/24 11:30 09/02/24 10:26 White Blood Count 6.5 10^3/uL (4.4-10.8) Red Blood Count 5.45 10^6/uL (4.5-5.90) Hemoglobin 15.0 g/dL (13.5-17.5) Hematocrit 45.8 % (41.0-53.0) Mean Corpuscular Volume 84.1 fL (80.0-100.0) Mean Corpuscular Hemoglobin 27.5 pg (28.0-32.0) Mean Corpuscular Hemoglobin Concent 32.8 g/dL (32.0-36.0) Red Cell Distribution Width 14.2 % (11.8-14.3) Platelet Count 212 10^3/uL (140-450) Mean Platelet Volume 7.8 fL (6.9-10.8) Neutrophils (%) (Auto) 71.5 % (37.0-80.0) Lymphocytes (%) (Auto) 20.0 % (10.0-50.0) Monocytes (%) (Auto) 5.0 % (0.0-12.0) Eosinophils (%) (Auto) 3.0 % (0.0-7.0) Basophils (%) (Auto) 0.5 % (0.0-2.0) Neutrophils # (Auto) 4.7 10 ^3/uL (1.6-8.6) Lymphocytes # (Auto) 1.3 10 ^3/uL (0.4-5.4) Monocytes # (Auto) 0.3 10 ^3/uL (0-1.3) Eosinophils # (Auto) 0.2 10 ^3/uL (0-0.8) Basophils # (Auto) 0 10 ^3/uL (0-0.2) Nucleated Red Blood Cells 0.1 % Sodium Level 141 mmol/L (136-145) Potassium Level 4.0 mmol/L (3.5-5.1) Chloride Level 107 mmol/L (98-107) Carbon Dioxide Level 28 mmol/L (20-31) Anion Gap 6 (5-15) Blood Urea Nitrogen 12 mg/dL (9-23) Creatinine 0.89 mg/dL (0.700-1.30) Glomerular Filtration Rate Calc 96 mL/min (>90) BUN/Creatinine Ratio 13.5 (10.0-20.0) Serum Glucose 96 mg/dL (74-106) Hemoglobin A1c 4.8 % A1C (<5.7) Calcium Level 9.5 mg/dL (8.7-10.4) Total Bilirubin 1.0 mg/dL (0.2-1.0) Aspartate Amino Transferase (AST) 20 U/L (13-40) Alanine Aminotransferase (ALT) 18 U/L (7-40) Alkaline Phosphatase 90 U/L (46-116) Total Protein 6.5 g/dL (5.7-8.2) Albumin 4.2 g/dL (3.2-4.8) Triglycerides Level 142 mg/dL (< 150) Cholesterol Level 213 mg/dL (< 200) LDL Cholesterol 155 mg/dL (< 100) HDL Cholesterol 37 mg/dL (40-59) Thyroid Stimulating Hormone (TSH) 0.57 uIU/mL (0.55-4.78) Troponin I High Sensitivity 54 ng/L (</=54) Urine Color Yellow (Yellow) Urine Clarity Clear (Clear) Urine pH 5.0 (5.0-9.0) Urine Specific [place] 1.024 (1.001-1.035) Urine Protein Negative (Negative) Urine Ketones Negative (Negative) Urine Blood Negative /uL (Negative) Urine Nitrite Negative (Negative) Urine Bilirubin Negative (Negative) Urine Urobilinogen Normal mg/dL (Negative) Urine Leukocyte Esterase Negative /uL (Negative) Urine RBC 1 /hpf (0 - 3) Urine Microscopic WBC 1 /HPF (0-3) Urine Squamous Epithelial Cells None seen /hpf (<5) Urine Bacteria None seen /hpf (None Seen) Urine Glucose Normal mg/dL (Normal) D-Dimer, Quantitative 0.31 mg/L FEU (0.0-0.49) B-Type Natriuretic Peptide 292.57 pg/mL (0-100) Other Laboratory Tests 09/03/24 07:34 Brief Hx & Hospital Course: Patient is 64-year-old male with past medical history of hypertension, hyperlipidemia, CVA, COPD came to the hospital with a chief complaint of chest pain, chest pain is mainly located on substernal, radiating to right arm, worsened with movement, worse on mainly with neck movement, not associated with exertion, onset in last 7-10 days, relieved with position change. Patient was evaluated for acute coronary syndrome, non trending troponin, BNP elevated at 292, x-ray showed basilar obesity, EKG normal sinus rhythm. Cardiology consultation was done , recommended medical management. Underwent cervical CT scan which showed multilevel degenerative neuroforaminal moderate to severe stenosis. Recommended physical therapy, pain management. Before patient was evaluated further for care, patient left AMA against medical advice. Patient was counseled on worsening symptoms, advise not going against medical advice however patient left AMA. Condition on discharge undetermined. Condition at Discharge: Undetermined Final Diagnosis/Problems List Chest pain likely musculoskeletal Cervical neuroforaminal stenosis Uncontrolled hypertension Acute on chronic HFrEF NSTEMI type 2 likely due to above Hyperlipidemia COPD not in exacerbation Morbid obesity BMI 33.3 kg/m2 Discharge Disposition: AMA Discharge Statement: "Patient was advised to return to the ER or call 911 if any headaches, dizziness, shortness of breath, chest pain, abdominal pain, bleeding, fevers, or worsening of medical condition. Patient was counseled about treatment plan, medications, possible side effects, patientverbalized understanding. All questions were answered to the best of my ability. This discharge took greater then 30 minutes in planning, reviewing documentation, counseling the patient, and discussing with other team members." ASSESSMENT ASSESSMENT Assessment Date of Service: Sep 03, 2024 Billing Provider: SYLVIE SAGASTUME MD Common Visit Codes: 73972-GCA/OBS DISCH DAY >30min GRETEL JACOME RESIDENT Sep 03, 2024 19:41 SYLVIE SAGASTUME MD Sep 03, 2024 21:21
[2024-09-03] MEDS ORDERED: ATORVASTATIN 20 MG TAB PO SCH (22:00)
--- NOTE | 2024-09-03 22:42 | DVHPN2 ---
Progress Note - Dictate Date Seen: Sep 03, 2024 Medical Necessity Reason Pt with a Central, PICC or Fol: No Subjective Patient was seen and evaluated in follow up. Patient reports improvement in chest pain. Chemistry panel is WNL. Chest US is unremarkable. CT C-spine shows multilevel degenerative neural foraminal stenosis up to moderate to severe degree on the left at C3-C4 and moderate at multiple levels as above. Mild degenerative multilevel spinal stenosis. Echocardiogram is pending. Telemetry reviewed. vital signs Vital Sign Date Time Temp Pulse Resp B/P (MAP) Pulse Ox O2 Delivery O2 Flow Rate FiO2 09/03/24 11:16 160/89 09/03/24 11:13 72 09/03/24 08:39 98.1 17 95 98.1 09/03/24 06:39 Room Air 0.0 09/03/24 06:39 21 Total Intake and Output 09/02/24 09/02/24 09/03/24 15:00 23:00 07:00 Intake Total 520 ml Balance 520 ml medications Current Medications Medications Dose Ordered Sig/Corey Route Start Time Stop Time Status Last Admin Dose Admin Acetaminophen/ Hydrocodone Bitart 1 tab Q4HP PRN PO 09/02/24 13:45 09/03/24 09:44 1 TAB Ondansetron HCl 4 mg Q4HP PRN IV 09/02/24 13:45 Docusate Sodium 100 mg BIDPRN PRN PO 09/02/24 13:45 Acetaminophen 650 mg Q6HP PRN PO 09/02/24 13:45 Nitroglycerin 0.4 mg Q5MINP PRN SL 09/02/24 13:45 Morphine Sulfate 2 mg Q30M PRN IV 09/02/24 13:45 Famotidine 40 mg DAILYP PRN PO 09/02/24 13:45 Methocarbamol 1,500 mg TID PO 09/02/24 14:00 Hold Aspirin 81 mg DAILY PO 09/03/24 10:00 09/03/24 09:21 81 MG Amlodipine Besylate 2.5 mg DAILY PO 09/03/24 10:00 09/03/24 11:14 2.5 MG Gabapentin 800 mg QID PO 09/02/24 18:00 09/03/24 11:43 800 MG Ceftriaxone Sodium 50 ml @ 100 mls/hr DAILY@09 IV 09/03/24 09:00 09/03/24 09:23 100 MLS/HR Azithromycin 250 ml @ 125 mls/hr DAILY IV 09/03/24 10:00 09/03/24 09:23 125 MLS/HR Ipratropium [place] 0.5 mg Q4HPRN PRN NEB 09/02/24 14:45 Albuterol 2.5 mg Q4HPRN PRN NEB 09/02/24 14:45 Hydralazine HCl 10 mg Q6HP PRN IV 09/02/24 17:45 Furosemide 40 mg DAILY PO 09/03/24 10:00 09/03/24 11:16 40 MG Metoprolol Tartrate 100 mg BID PO 09/03/24 10:00 09/03/24 11:13 100 MG Sacubitril/ Valsartan 1 tab BID PO 09/03/24 10:00 09/03/24 11:35 1 TAB Spironolactone 12.5 mg DAILY PO 09/03/24 10:00 09/03/24 11:12 12.5 MG Patient Own Medication 1 tab DAILY PO 09/03/24 10:00 UNV Patient Own Medication 12.5 mg DAILY PO 09/03/24 10:00 UNV Patient Own Medication 15 mg BIDP PO 09/03/24 10:00 Hold Atorvastatin Calcium 80 mg HS PO 09/03/24 22:00 Hydrochlorothiazide 12.5 mg DAILY PO 09/04/24 10:00 objective GENERAL: Alert and oriented x 3. No acute distress. EYES: PERRL, EOMI. Anicteric. HENT: Moist mucous membranes. LUNGS: Diminished breath sounds on the right. CARDIOVASCULAR: Regular rate and rhythm. ABDOMEN: Soft, non-tender and non-distended. EXTREMITIES: No edema. NEUROLOGIC: No focal neurological deficits. SKIN: Warm, dry. laboratory and microbiology Laboratory Tests 09/03/24 07:34 Test 09/03/24 07:34 Range/Units Serum Glucose 96 74-106 mg/dL Problem List Accelerated hypertension. Elevated troponin. Cardiac pauses. Hypertension. Hyperlipidemia. COPD. Assessment/Plan Continued all current supportive medical care. Morphine and [place] for pain management. Amlodipine. Aspirin. IV antibiotics as ordered. IV Hydralazine for SBP >150. Nitro SL. Additional plan as per the hospital course. Plan discussed with: Patient FANG KAUFMAN MD Sep 03, 2024 14:23
[2024-09-04] MEDS ORDERED: hydroCHLOROthiazide 25 MG TAB PO SCH (10:00)
--- NOTE | 2024-09-04 12:04 | DVHSR ---
APPROVED REPORT EXAM: Two-dimensional and M-mode echocardiogram with Doppler and color Doppler. Blood Pressure: 160/89 mmHg INDICATION CHF RISK FACTORS Height: 5' 9", Weight: 225 DIMENSIONS LVDd3.6 (3.8-5.7cm)LA (2D)3.7 (1.9-4.0cm)Aortic Root3.1 (2.0-3.7cm) LVDs3.0 (2.5-4.0cm)LA (MM) (1.9-4.0cm)Aortic Cusp Exc1.7 (1.5-2.0cm) EF (%) 35.0 (55-70%)Rt. Atrium4.0 (1.9-4.0cm)Asc. Aorta cm IVSd1.3 (0.7-1.1cm)RV (D) (1.8-2.4cm) PWd1.2 (0.7-1.1cm) Mitral Valve MitralMitral Stenosis E wave0.50m/sMV Mean GR.mmHg A wave1.10m/sMV Peak GR.mmHg E/A ratio0.52D MVAcm2 Aortic Valve Aortic ValveAortic Stenosis V10.80m/Jerry Mean GR.2mmHg V21.00m/Jerry Peak GR.4mmHg LVOT Diameter1.9 (1.8-2.4cm)Doppler AVA2.27cm2 Other Information Quality : Technically LimitedRhythm : Technically limited study due to Conclusion LVEF is severely reduced at 30-35% with global hypokinesis Moderate to severe left ventricular hypertrophy Right ventricle mildly dilated, mildly reduced function No significant valve disease
== END 2024-09-03 18:05 | disposition left against medical advice (07) | DRG 190 ==
LOC: ER 10:10 → OVERFLOW 13:35 → TELE-WESTW 21:02
PROVIDERS: ADMIT Internal Medicine; ATTEND Internal Medicine
DX: R07.89 Other chest pain (principal); I21.A1 Myocardial infarction type 2; I50.33 Acute on chronic diastolic (congestive) heart failure; J44.9 Chronic obstructive pulmonary disease, unspecified; I10 Essential (primary) hypertension; E78.5 Hyperlipidemia, unspecified; G89.29 Other chronic pain; Z53.29 Procedure and treatment not carried out because of patient's decision for other reasons; R79.89 Other specified abnormal findings of blood chemistry; Z68.21 Body mass index [BMI] 21.0-21.9, adult; G62.9 Polyneuropathy, unspecified; J90 Pleural effusion, not elsewhere classified; M48.02 Spinal stenosis, cervical region; Z86.73 Personal history of transient ischemic attack (TIA), and cerebral infarction without residual deficits; Z79.82 Long term (current) use of aspirin; Z79.899 Other long term (current) drug therapy; Z79.84 Long term (current) use of oral hypoglycemic drugs
CPT/HCPCS: 36415; 71046; 72125; 76604; 80048; 80053; 80061; 81001; 83036; 83880; 84443; 84484; 85025; 85379; 93005; 93306; 99291; G0378

== ENCOUNTER 2024-09-04 15:47 | Inpatient (IN) | payer MEDICAID ==
[~2024-09-04] VITALS: Ht 175.3 cm; Wt 100.5 kg
[~2024-09-04 15:47] MED LIST changes: +AMLO1TAB21 PO; +GABA800T97 PO; +OXY10CRT PO
--- NOTE | 2024-09-04 16:01 | ED.PDOC ---
HPI Comments Pt has a Pain Rate of a 9/10. Final Diagnosis/Problems List-09/04/23 Chest pain likely musculoskeletal Cervical neuroforaminal stenosis Uncontrolled hypertension Acute on chronic HFrEF NSTEMI type 2 likely due to above Hyperlipidemia COPD not in exacerbation Morbid obesity BMI 33.3 kg/m2 PMHx:2L O2 at home NC, COPD, CVA, High Lipids, HTN SHx: Tonsillectomy, Partial Bilateral Lobectomy TANG HPI: Poor Historian. 63-year-old male presents to emergency department for evaluation of right-sided chest pain radiating to the right neck and right upper extremity. Pain onset was August 23. He was admitted to the hospital two days ago and he left against medical advice yesterday evening because he said he had to go bear his mother. Patient still have the same kind of pain. Pain is constant. No alleviating or precipitating factors. REVIEW OF SYSTEMS: CONSTITUTIONAL: Denies acute: fever, diaphoresis, chills, HEAD: Denies acute: headache, photophobia Eyes: Denies acute: Double vision, vision loss, eye pain, eye discharge. EARS: Denies acute: tinnitus, hearing loss, ear discharge, ear pain, THROAT: Denies acute: sore throat, swelling, difficulty swallowing , pain with swal lowing, change in voice. NECK: Denies acute: neck pain, neck swelling, stiff neck. HEART: Denies acute : palpitations, LUNGS: Denies acute: SOB, wheezing, cough, hemoptysis ABDOMEN: Denies acute: abdominal pain, Nausea, Vomiting, diarrhea, melena , hematemesis, hematochezia SKIN: Denies acute: rash, redness, lesions, itchiness. EXTREMITIES: Denies acute: calf pain, numbness, tingling, weakness, denies pain in extremity. Denies acute: Low back pain. Neuro: Denies acute: focal neurological deficit, motor or sensory focal neurological deficit, tremors, seizure like activity, confusion, dizziness, change in mental status, loss of bowel or bladder function, cauda equina like symptoms. : Denies acute: dysuria, hematuria, flank pain, increase in urinary frequency. PSYCH: Denies acute: hallucination, suicidal ideation, homicidal ideation. PHYSICAL EXAM: General: ----[id number]----acute distress, awake and alert. Head: normocephalic, atraumatic. Neck: supple, trachea is midline, no swelling. Throat: Normal phonation. Eyes:, no erythema, no purulent discharge, no proptosis, no icterus. Heart: regular rate, regular rhythm, no significant murmur appreciated. Lungs: no apparent respiratory distress, Able to speak in full sentences. No wheezing, no rhonchi, no crackles. No stridors Clear to auscultation bilaterally. Abdomen: non tender to palpation, non distended, soft, no guarding, no rebound, + bowel sounds. Neuro: Awake, Alert, oriented to name, self, situation, follows commands GCS=15. Speech is normal. Skin: no petechia, no purpura, no cyanosis, non-pale, not jaundice. Lower extremities: --trace bilateral- Pitting edema no deformity, no focal swelling, no calf TTP. Makes eye contact. moves all four extremities. Face: no apparent facial droop. Ambulating in the ED independently. ED COURSE: Chief Complaint: Chest Pain Time Seen by MD: 16:00 Primary Care Provider: wo Reviewed Notes: Nurses Notes, Allergies Allergies: Coded Allergies: NO KNOWN ALLERGIES (Unverified , 02/16/17) Home Meds Active Scripts Clonidine Hydrochloride (Clonidine Hcl) 0.2 Mg Tab, 1 TAB PO BIDP PRN, #20 TAB 0 Refills To be used if systolic pressures above 160 or diastolic pressures above 90. Prov:DELON DEE PAC 02/22/24 Dronedarone Hydrochloride (Multaq) 400 Mg Tab, 400 MG PO BID for 30 Days, #60 TAB Prov:TAM MROTON MD 01/02/23 Furosemide (Lasix) 20 Mg Tb, 2 TAB PO DAILY, #60 TAB 1 Refill Prov:TAM MORTON MD 01/02/23 Empagliflozin (Jardiance) 10 Mg Tab, 10 MG PO QAM for 30 Days, #30 TAB Prov:TAM MORTON MD 01/02/23 Spironolactone (Aldactone) 25 Mg Tab, 12.5 MG PO DAILY for 30 Days, #30 TAB Prov:TAM MORTON MD 01/02/23 Sacubitril-Valsartan (Entresto 24-26 mg) 1 Tab Tab, 1 TAB PO BID for 30 Days, #60 TAB Prov:TAM MORTON MD 01/02/23 Metoprolol Tartrate (LOPRESSOR TABLET) 50 Mg Tb, 100 MG PO BID for 30 Days, #60 TAB Prov:TAM MORTON MD 01/02/23 Reported Medications Gabapentin (Gabapentin) 800 Mg Tab, 1 TAB PO QID 09/02/24 Oxycodone Hcl (OxyCONTIN ER Tablet) 10 Mg Tb, 1 TAB PO QIDP, #60 TAB 09/02/24 Morphine Sulfate (Morphine Sulfate) 15 Mg Tab, 15 MG PO BIDP, TAB 12/28/22 Hydrochlorothiazide (Hydrochlorothiazide) 12.5 Mg Cap, 12.5 MG PO DAILY, CAP 12/28/22 Aspirin (Aspir-81) 81 Mg Tab, 1 TAB PO DAILY 02/18/17 Atorvastatin Calcium (ATORVASTATIN CALCIUM) 80 Mg Tab, 1 TAB PO DAILY 02/18/17 Methocarbamol (Methocarbamol) 500 Mg Tab, 1500 MG PO TID 02/18/17 Albuterol Sulfate (VENTOLIN MDI) 90 Mcg Ih, 90 MCG IN 02/16/17 Discontinued Reported Medications Amlodipine Besylate (Amlodipine Besylate) 2.5 Mg Tab, 1 TAB PO DAILY 09/02/24 Nicotine Polacrilex (Nicotine) 4 Mg Gum, 4 MG MT 5XD, GUM 06/20/17 Beclomethasone Dipropionate (Qvar) 40 Mcg/Act Aer, 40 MCG IN DAILYP PRN for SHORTNESS OF BREATH, AER 06/20/17 Famotidine (Famotidine) 20 Mg Tab, 40 MG PO DAILYP PRN for FOR STOMACH DISTRESS for 30 Days, MG 06/20/17 Tramadol Hcl (Tramadol Hcl) 50 Mg Tab, 50 MG PO TID, TAB 06/20/17 Omeprazole (PRILOSEC) 20 Mg Cap, 1 CAP PO DAILY 02/18/17 Cyclobenzaprine Hcl (Cyclobenzaprine Hcl) 10 Mg Tab, 10 MG PO TIDPRN for FOR MUSCLE SPASM 02/18/17 Diphenhydramine Hcl (BANOPHEN) 50 Mg Cap, 25 MG PO TID 02/18/17 Oxycodone W/ Acetaminophen (Percocet 5/325MG) 1 Tab Tb, 1 TAB PO QID, #120 TAB 12/28/22 Amlodipine Besylate (NORVASC TABLET) 5 Mg Tb, 1 TAB PO DAILY 02/18/17 Metoprolol Tartrate (Metoprolol Tartrate) 25 Mg Tab, 100 TAB PO BID 02/16/17 Gabapentin (Gabapentin) 600 Mg Tab, 800 MG PO TID, TAB 02/16/17 Discontinued Scripts Apixaban Base (ELIQUIS) 2.5 Mg Tab, 2.5 MG PO BID for 30 Days, #60 TAB Prov:TAM MORTON MD 01/02/23 Amoxicillin & Pot Clavulanate (Augmentin) 500 Mg Tab, 1 TAB PO BID, #14 TAB Prov:TAM MORTON MD 01/02/23 Aspirin (Aspirin Low Dose) 81 Mg Tab, 81 MG PO DAILY for 30 Days, #30 TAB Prov:TAM MORTON MD 01/02/23 Past Medical History PAST MEDICAL HISTORY: COPD, CVA, High Lipids, HTN Surgical History: Tonsillectomy Surgical History (Other): Partial Bilateral Loboctomy Family History Family History: Reviewed,noncontributory to illness, Unknown Social History Smoker: Non-Smoker Alcohol: Denies ETOH Use Drugs: Denies Drug Use Lives In: Home Was a procedure done? Was a procedure done?: No CP Differential Dx Differential Diagnosis: N/A Differential Diagnosis: Other (Ddx include but not limitied to gastritis, musculoskeletal pain, radiculopathy, atypical chest pain, dissection, aneurysm, ACS, unstable angina, hiatal hernia, GERD, anxiety, costochondritis, PE, pneumothroax, neoplasm, cardiac ischemia, drug abuse, anemia.) X-Ray, Labs, Meds, VS Vital Signs Date Time Temp Pulse Resp B/P (MAP) Pulse Ox O2 Delivery O2 Flow Rate FiO2 09/04/24 18:20 98.9 62 17 146/93 (110) 97 98.9 09/04/24 18:20 62 09/04/24 18:19 146/93 09/04/24 16:47 66 09/04/24 16:13 97.5 69 19 140/78 (98) 98 97.5 09/04/24 15:57 64 Lab Test 09/04/24 17:02 4/24/25 16:05 Range/Units Troponin I High Sensitivity 52 55 *H </=54 ng/L White Blood Count 6.5 4.4-10.8 10^3/uL Red Blood Count 5.67 4.5-5.90 10^6/uL Hemoglobin 15.5 13.5-17.5 g/dL Hematocrit 47.9 41.0-53.0 % Mean Corpuscular Volume 84.5 80.0-100.0 fL Mean Corpuscular Hemoglobin 27.4 L 28.0-32.0 pg Mean Corpuscular Hemoglobin Concent 32.4 32.0-36.0 g/dL Red Cell Distribution Width 14.5 H 11.8-14.3 % Platelet Count 254 140-450 10^3/uL Mean Platelet Volume 7.8 6.9-10.8 fL Neutrophils (%) (Auto) 59.9 37.0-80.0 % Lymphocytes (%) (Auto) 29.3 10.0-50.0 % Monocytes (%) (Auto) 6.4 0.0-12.0 % Eosinophils (%) (Auto) 3.7 0.0-7.0 % Basophils (%) (Auto) 0.7 0.0-2.0 % Neutrophils # (Auto) 3.9 1.6-8.6 10 ^3/uL Lymphocytes # (Auto) 1.9 0.4-5.4 10 ^3/uL Monocytes # (Auto) 0.4 0-1.3 10 ^3/uL Eosinophils # (Auto) 0.2 0-0.8 10 ^3/uL Basophils # (Auto) 0 0-0.2 10 ^3/uL Nucleated Red Blood Cells 0.2 % Sodium Level 143 136-145 mmol/L Potassium Level 3.8 3.5-5.1 mmol/L Chloride Level 108 H 98-107 mmol/L Carbon Dioxide Level 27 20-31 mmol/L Anion Gap 8 5-15 Blood Urea Nitrogen 12 9-23 mg/dL Creatinine 1.31 H 0.700-1.30 mg/dL Glomerular Filtration Rate Calc 61 >90 mL/min BUN/Creatinine Ratio 9.2 L 10.0-20.0 Serum Glucose 104 74-106 mg/dL Calcium Level 9.3 8.7-10.4 mg/dL Total Bilirubin 0.6 0.2-1.0 mg/dL Aspartate Amino Transferase (AST) 18 13-40 U/L Alanine Aminotransferase (ALT) 13 7-40 U/L Alkaline Phosphatase 99 46-116 U/L B-Type Natriuretic Peptide 115.81 0-100 pg/mL Total Protein 7.1 5.7-8.2 g/dL Albumin 4.6 3.2-4.8 g/dL Current Medications Medications (Trade) Dose Ordered Sig/Corey Route Start Time Stop Time Status Last Admin Aspirin (Ecotrin Enteric Coated Tablet) 325 mg ONCE ONCE PO 09/04/24 16:00 09/04/24 16:01 DC 09/04/24 18:13 Nitroglycerin (Ntrostat Sublingual) 0.4 mg ONCE ONCE SL 09/04/24 16:00 09/04/24 16:01 DC 09/04/24 18:19 PROCEDURE(s): CXRP - CHEST PORTABLE REASON: cp ORDER NUMBER(s): [id number], ACCESSION NUMBER(s): [id number] CHEST RADIOGRAPH Indication: cp Technique: Single frontal view of the chest was obtained COMPARISON: XY CHEST PORTABLE on DOS: 12/28/22 FINDINGS: Lines and Tubes: None Lungs: No consolidation Flattening of the hemidiaphragms left greater than right Postsurgical changes seen with respected to clips at the level of the right hilum Pleura: No effusion. No pneumothorax. Cardiomediastinal contours: Unremarkable Bones: Unremarkable IMPRESSION: 1. No acute disease. Time of 1ST Reevaluation: 16:30 Reevaluation 1ST: Unchanged Patient Education/Counseling: Diagnosis, Treatment Family Education/Counseling: No Family Present Comments Patient presented with the above HPI.--chest pain---workup was initiated. patient was found with the above mentioned diagnosis. the following medications were ordered: please refer to order lists of meds and tests obtained by myself Dr. Holland. Patient ED course and VS have been stabilized. Patient has been reassessed in the ED and remained in a stable condition. Pertinent incidental findings were discussed with the patient and/or family. Patient/family voices understanding and is agreeable with plan. Patient has been observed in the ED adequate length of time to insure improvement/stability. Escalation of care considered: Consideration of escalation to observation or admission Patient was ADMITTED to the medicine team for further evaluation and treatment of their presentation. All the reports of any imaging studies that were ordered by myself were reviewed by myself. Departure 1 Departure Time of Disposition: 16:03 Impression: Primary Impression: Chest pain Additional Impressions: Abnormal EKG T wave inversion in EKG Elevated troponin Disposition: ADMITTED INPATIENT Admit to: Tele Condition: Guarded Discharged With: Self Critical Care Note Critical Care Time?: Yes (35 min-critical care time only) Heart Score Heart Score: Heart Score Response (Comments) Value History Moderate Suspicious [address]-Deviation 2 Age 45-64 1 Risk Factors >3 or Hx ASHD 2 Troponin 1-2 x's Normal limit 1 Total 7 I personally scribed for CRUZ HOLLAND DO ([email or web address]) on 09/04/24 at 16:01. Electronically submitted by Stanley Arteaga ([employer]). I personally scribed for CRUZ HOLLAND DO ([email or web address]) on 09/04/24 at 17:50. Electronically submitted by Stanley Arteaga ([employer]). CRUZ HOLLAND DO Sep 04, 2024 16:01
[2024-09-04 16:17] LABS: Basophils # (auto) 0 10 ^3/uL (0-0.2); Basophils % (auto) 0.7 % (0.0-2.0); Eosinophils # (auto) 0.2 10 ^3/uL (0-0.8); Eosinophils % (auto) 3.7 % (0.0-7.0); Hematocrit 47.9 % (41.0-53.0); Hemoglobin 15.5 g/dL (13.5-17.5); Lymphocytes # (auto) 1.9 10 ^3/uL (0.4-5.4); Lymphocytes % (auto) 29.3 % (10.0-50.0); Mean Corpuscular Hemoglobin 27.4 pg (28.0-32.0); Mean Corpuscular Hgb Conc. 32.4 g/dL (32.0-36.0); Mean Corpuscular Volume 84.5 fL (80.0-100.0); Monocytes # (auto) 0.4 10 ^3/uL (0-1.3); Monocytes % (auto) 6.4 % (0.0-12.0); Neutrophils # (auto) 3.9 10 ^3/uL (1.6-8.6); Neutrophils % (auto) 59.9 % (37.0-80.0); Nucleated Red Blood Cells % 0.2 %; Platelet Count (auto) 254 10^3/uL (140-450); Red Blood Cells 5.67 10^6/uL (4.5-5.90); Red Cell Distribution Width 14.5 % (11.8-14.3); White Blood Cell 6.5 10^3/uL (4.4-10.8)
[2024-09-04 16:32] LABS: Alanine Aminotransferase 13 U/L (7-40); Albumin 4.6 g/dL (3.2-4.8); Alkaline Phosphatase 99 U/L (46-116); Anion Gap 8 (5-15); Aspartate Aminotransferase 18 U/L (13-40); BUN/Creatinine Ratio 9.2 (10.0-20.0); Bilirubin, Total 0.6 mg/dL (0.2-1.0); Blood Urea Nitrogen 12 mg/dL (9-23); Calcium 9.3 mg/dL (8.7-10.4); Carbon Dioxide 27 mmol/L (20-31); Glucose 104 mg/dL (74-106); Potassium 3.8 mmol/L (3.5-5.1); Sodium 143 mmol/L (136-145); Total Protein 7.1 g/dL (5.7-8.2)
[2024-09-04 16:33] LABS: Chloride 108 mmol/L (98-107)
--- NOTE | 2024-09-04 16:46 | DVH ---
CHEST RADIOGRAPH Indication: cp Technique: Single frontal view of the chest was obtained COMPARISON: XY CHEST PORTABLE on DOS: 12/28/22 FINDINGS: Lines and Tubes: None Lungs: No consolidation Flattening of the hemidiaphragms left greater than right Postsurgical changes seen with respected to clips at the level of the right hilum Pleura: No effusion. No pneumothorax. Cardiomediastinal contours: Unremarkable Bones: Unremarkable IMPRESSION: 1. No acute disease.
[2024-09-04] MEDS: ASPirin-EC 325mg tab PO ONE (18:13)
[2024-09-04] MEDS: NITROGLYCERIN 0.4 MG SL TAB SL ONE (18:19)
--- NOTE | 2024-09-04 18:33 | DVHHP2 ---
Admitting Diagnosis: Chest pain History of Present Illness 63-year-old male presents to emergency department for evaluation of right-sided chest pain radiating to the right neck and right upper extremity. Pain onset was August 23. He was admitted to the hospital two days ago and he left against medical advice yesterday evening because he said he had to go bear his mother. Patient still have the same kind of pain. Pain is constant. No alleviating or precipitating factors. REVIEW OF SYSTEMS: CONSTITUTIONAL: Denies acute: fever, diaphoresis, chills, HEAD: Denies acute: headache, photophobia Eyes: Denies acute: Double vision, vision loss, eye pain, eye discharge. EARS: Denies acute: tinnitus, hearing loss, ear discharge, ear pain, THROAT: Denies acute: sore throat, swelling, difficulty swallowing , pain with swallowing, change in voice. NECK: Denies acute: neck pain, neck swelling, stiff neck. HEART: Denies acute : palpitations, LUNGS: Denies acute: SOB, wheezing, cough, hemoptysis ABDOMEN: Denies acute: abdominal pain, Nausea, Vomiting, diarrhea, melena , hematemesis, hematochezia SKIN: Denies acute: rash, redness, lesions, itchiness. EXTREMITIES: Denies acute: calf pain, numbness, tingling, weakness, denies pain in extremity. Denies acute: Low back pain. Neuro: Denies acute: focal neurological deficit, motor or sensory focal neurological deficit, tremors, seizure like activity, confusion, dizziness, change in mental status, loss of bowel or bladder function, cauda equina like symptoms. : Denies acute: dysuria, hematuria, flank pain, increase in urinary frequency. PSYCH: Denies acute: hallucination, suicidal ideation, homicidal ideation. PAST MEDICAL HISTORY: COPD, CVA, High Lipids, HTN Surgical History: Tonsillectomy Surgical History (Other): Partial Bilateral Loboctomy Family History Family History: Reviewed,noncontributory to illness, Unknown Social History Smoker: Non-Smoker Alcohol: Denies ETOH Use Drugs: Denies Drug Use Lives In: Home Patient Family History: Patient reports no known family medical history. Allergies: Coded Allergies: NO KNOWN ALLERGIES (Unverified , 02/16/17) Home Meds Active Scripts Clonidine Hydrochloride (Clonidine Hcl) 0.2 Mg Tab, 1 TAB PO BIDP PRN, #20 TAB 0 Refills To be used if systolic pressures above 160 or diastolic pressures above 90. Prov:DELON DEE PAC 02/22/24 Dronedarone Hydrochloride (Multaq) 400 Mg Tab, 400 MG PO BID for 30 Days, #60 TAB Prov:TAM MORTON MD 01/02/23 Furosemide (Lasix) 20 Mg Tb, 2 TAB PO DAILY, #60 TAB 1 Refill Prov:TAM MORTON MD 01/02/23 Empagliflozin (Jardiance) 10 Mg Tab, 10 MG PO QAM for 30 Days, #30 TAB Prov:TAM MORTON MD 01/02/23 Spironolactone (Aldactone) 25 Mg Tab, 12.5 MG PO DAILY for 30 Days, #30 TAB Prov:TAM MORTON MD 01/02/23 Sacubitril-Valsartan (Entresto 24-26 mg) 1 Tab Tab, 1 TAB PO BID for 30 Days, #60 TAB Prov:TAM MORTON MD 01/02/23 Metoprolol Tartrate (LOPRESSOR TABLET) 50 Mg Tb, 100 MG PO BID for 30 Days, #60 TAB Prov:TAM MORTON MD 01/02/23 Reported Medications Gabapentin (Gabapentin) 800 Mg Tab, 1 TAB PO QID 09/02/24 Oxycodone Hcl (OxyCONTIN ER Tablet) 10 Mg Tb, 1 TAB PO QIDP, #60 TAB 09/02/24 Morphine Sulfate (Morphine Sulfate) 15 Mg Tab, 15 MG PO BIDP, TAB 12/28/22 Hydrochlorothiazide (Hydrochlorothiazide) 12.5 Mg Cap, 12.5 MG PO DAILY, CAP 12/28/22 Aspirin (Aspir-81) 81 Mg Tab, 1 TAB PO DAILY 02/18/17 Atorvastatin Calcium (ATORVASTATIN CALCIUM) 80 Mg Tab, 1 TAB PO DAILY 02/18/17 Methocarbamol (Methocarbamol) 500 Mg Tab, 1500 MG PO TID 02/18/17 Albuterol Sulfate (VENTOLIN MDI) 90 Mcg Ih, 90 MCG IN 02/16/17 Discontinued Reported Medications Amlodipine Besylate (Amlodipine Besylate) 2.5 Mg Tab, 1 TAB PO DAILY 09/02/24 Nicotine Polacrilex (Nicotine) 4 Mg Gum, 4 MG MT 5XD, GUM 06/20/17 Beclomethasone Dipropionate (Qvar) 40 Mcg/Act Aer, 40 MCG IN DAILYP PRN for SHORTNESS OF BREATH, AER 06/20/17 Famotidine (Famotidine) 20 Mg Tab, 40 MG PO DAILYP PRN for FOR STOMACH DISTRESS for 30 Days, MG 06/20/17 Tramadol Hcl (Tramadol Hcl) 50 Mg Tab, 50 MG PO TID, TAB 06/20/17 Omeprazole (PRILOSEC) 20 Mg Cap, 1 CAP PO DAILY 02/18/17 Cyclobenzaprine Hcl (Cyclobenzaprine Hcl) 10 Mg Tab, 10 MG PO TIDPRN for FOR MUSCLE SPASM 02/18/17 Diphenhydramine Hcl (BANOPHEN) 50 Mg Cap, 25 MG PO TID 02/18/17 Oxycodone W/ Acetaminophen (Percocet 5/325MG) 1 Tab Tb, 1 TAB PO QID, #120 TAB 12/28/22 Amlodipine Besylate (NORVASC TABLET) 5 Mg Tb, 1 TAB PO DAILY 02/18/17 Metoprolol Tartrate (Metoprolol Tartrate) 25 Mg Tab, 100 TAB PO BID 02/16/17 Gabapentin (Gabapentin) 600 Mg Tab, 800 MG PO TID, TAB 02/16/17 Discontinued Scripts Apixaban Base (ELIQUIS) 2.5 Mg Tab, 2.5 MG PO BID for 30 Days, #60 TAB Prov:TAM MORTON MD 01/02/23 Amoxicillin & Pot Clavulanate (Augmentin) 500 Mg Tab, 1 TAB PO BID, #14 TAB Prov:TAM MORTON MD 01/02/23 Aspirin (Aspirin Low Dose) 81 Mg Tab, 81 MG PO DAILY for 30 Days, #30 TAB Prov:TAM MORTON MD 01/02/23 Vital Signs Vital Signs Date Time Temp Pulse Resp B/P (MAP) Pulse Ox O2 Delivery O2 Flow Rate FiO2 09/04/24 18:20 98.9 62 17 146/93 (110) 97 98.9 Physical Exam Generally 74 years old male, well nourished, well developed. Resting on chair. On nasal cannula 2 L HEENT-atraumatic normocephalic Heart-regular rate and rhythm Lungs clear to auscultate. No wheezing on rales or rhonchi Abdomen soft nontender nondistended Musculoskeletal-no cyanosis, pedal edema Neuro-AO x3, no focal deficits Results Labs Test 09/04/24 17:02 09/04/24 16:05 Range/Units Troponin I High Sensitivity 52 </=54 ng/L White Blood Count 6.5 4.4-10.8 10^3/uL Red Blood Count 5.67 4.5-5.90 10^6/uL Hemoglobin 15.5 13.5-17.5 g/dL Hematocrit 47.9 41.0-53.0 % Mean Corpuscular Volume 84.5 80.0-100.0 fL Mean Corpuscular Hemoglobin 27.4 L 28.0-32.0 pg Mean Corpuscular Hemoglobin Concent 32.4 32.0-36.0 g/dL Red Cell Distribution Width 14.5 H 11.8-14.3 % Platelet Count 254 140-450 10^3/uL Mean Platelet Volume 7.8 6.9-10.8 fL Neutrophils (%) (Auto) 59.9 37.0-80.0 % Lymphocytes (%) (Auto) 29.3 10.0-50.0 % Monocytes (%) (Auto) 6.4 0.0-12.0 % Eosinophils (%) (Auto) 3.7 0.0-7.0 % Basophils (%) (Auto) 0.7 0.0-2.0 % Neutrophils # (Auto) 3.9 1.6-8.6 10 ^3/uL Lymphocytes # (Auto) 1.9 0.4-5.4 10 ^3/uL Monocytes # (Auto) 0.4 0-1.3 10 ^3/uL Eosinophils # (Auto) 0.2 0-0.8 10 ^3/uL Basophils # (Auto) 0 0-0.2 10 ^3/uL Nucleated Red Blood Cells 0.2 % Sodium Level 143 136-145 mmol/L Potassium Level 3.8 3.5-5.1 mmol/L Chloride Level 108 H 98-107 mmol/L Carbon Dioxide Level 27 20-31 mmol/L Anion Gap 8 5-15 Blood Urea Nitrogen 12 9-23 mg/dL Creatinine 1.31 H 0.700-1.30 mg/dL Glomerular Filtration Rate Calc 61 >90 mL/min BUN/Creatinine Ratio 9.2 L 10.0-20.0 Serum Glucose 104 74-106 mg/dL Calcium Level 9.3 8.7-10.4 mg/dL Total Bilirubin 0.6 0.2-1.0 mg/dL Aspartate Amino Transferase (AST) 18 13-40 U/L Alanine Aminotransferase (ALT) 13 7-40 U/L Alkaline Phosphatase 99 46-116 U/L B-Type Natriuretic Peptide 115.81 0-100 pg/mL Total Protein 7.1 5.7-8.2 g/dL Albumin 4.6 3.2-4.8 g/dL Primary Diagnosis Chest pain Elevated troponin rule out ACS COPD on 2 L nasal cannula Plan Recent echo shows severely reduced EF 30-35% with global hypokinesis, moderate to severe left ventricular hypertrophy Troponin F 50s. Treatment troponin until plateau Check EKG Resume home meds Cardiology consult for elevated troponin rule out ACS NSAIDs for possible musculoskeletal pain. Patient says pain with cough and movement Resume home meds Cardiac diet Full code Lovenox for DVT prophylaxis PPI for GI prophylaxis Plan discussed with: Patient Problems List: (1) Chest pain Status: Acute (2) COPD (chronic obstructive pulmonary disease) (3) CHF (congestive heart failure) (4) Elevated troponin Date of Service: Sep 04, 2024 Billing Provider: REFUGIO THOMPSON MD Common Visit Codes: [id number] INP/OBS CARE (HIGH) REFUGIO THOMPSON MD Sep 04, 2024 18:33
[2024-09-04] MEDS ORDERED: PATIENTS OWN MEDICATION (Clonidine Hydrochloride (Clonidine Hcl) 1 TAB) PO PRN (18:45)
[2024-09-04] MEDS ORDERED: NITROGLYCERIN 0.4 MG SL TAB SL PRN (18:45)
--- NOTE | 2024-09-04 19:16 | ECG ---
[facility] Test Date: 2024-09-04 Test Time: 15:57:31 Pat Name: LOPEZ BECKWITH Department: ER Room: 0277T Gender: M Boiler Tender: GELACIO : 1960 Requested By: CRUZ HOLLAND Order Number: [id number] Reading MD: Evan Oliver Measurements Intervals [place] Rate: 64 P: 87 MN: 166 QRS: 52 QRSD: 97 T: 242 QT: 428 QTc: 442 Interpretive Statements Sinus rhythm Probable left atrial enlargement Repol abnrm suggests ischemia, anterolateral Minimal ST elevation, anterior leads Baseline wander in lead(s) III,aVL,aVF,V1,V5,V6 Electronically Signed On 09-07-2024 20:23:48 PDT by Evan Oliver Please click the below link to view image of tracing.
--- NOTE | 2024-09-04 19:16 | ECG ---
[facility] Test Date: 2024-09-04 Test Time: 16:47:47 Pat Name: LOPEZ BECKWITH Department: ED Room: 0277T Gender: M Employment Services Director: FABIOLA : 1960 Requested By: CRUZ HOLLAND Order Number: [id number] Reading MD: Evan Oliver Measurements Intervals [place] Rate: 66 P: 81 IN: 169 QRS: 63 QRSD: 101 T: 219 QT: 424 QTc: 445 Interpretive Statements Sinus rhythm Probable left atrial enlargement Repol abnrm, global ischemia, diffuse leads Minimal ST elevation, anterior leads Electronically Signed On 09-07-2024 20:24:20 PDT by Evan Oliver Please click the below link to view image of tracing.
--- NOTE | 2024-09-04 19:16 | ECG ---
[facility] Test Date: 2024-09-04 Test Time: 18:40:19 Pat Name: LOPEZ BECKWITH Department: ED Room: 0277T Gender: M Records Management Associate: FABIOLA : 1960 Requested By: CRUZ HOLLAND Order Number: [id number] Reading MD: Evan Oliver Measurements Intervals [place] Rate: 61 P: 73 MA: 171 QRS: 62 QRSD: 99 T: 215 QT: 453 QTc: 457 Interpretive Statements Sinus rhythm Probable left atrial enlargement Abnormal T, probable ischemia, widespread Minimal ST elevation, anterior leads Electronically Signed On 09-07-2024 20:24:54 PDT by Evan Oliver Please click the below link to view image of tracing.
[2024-09-04] MEDS: MORPHINE SULFATE INJ 2 MG/ml SYRG IV PRN (21:25)
[2024-09-04] MEDS: ONDANSETRON HCL 4 MG/2 ML VIAL IV PRN (21:26)
[2024-09-04] MEDS: GABAPENTIN 400 MG CAP PO SCH (21:42)
[2024-09-04] MEDS: ATORVASTATIN 20 MG TAB PO SCH (21:43)
[2024-09-04] MEDS: METOPROLOL TARTRATE 50 MG TAB PO SCH (21:44)
[2024-09-04 21:45] VITALS: PULSE 62; RESP 18; O2SAT 98
[2024-09-04] MEDS ORDERED: SACUBITRIL-VALSARTAN 24mg/26mg TAB PO SCH (22:00)
[2024-09-04] MEDS: ACETAMINOPHEN 325 MG TAB PO PRN (22:12)
[2024-09-04] MEDS: SODIUM CHLOR 0.9% PF (SALINE LOCK) 10ML VIAL/SYR IV SCH (22:14)
[2024-09-05 01:24] LABS: INR 1.03 (0.9-1.15); Partial Thromboplastin Time 32.5 SEC (24.5-34.5); Prothrombin Time 10.9 sec (9.3-11.8)
[2024-09-05] MEDS: HYDROcodone-ACET 5/325MG TAB PO PRN (05:26)
[2024-09-05 06:31] LABS: Basophils # (auto) 0 10 ^3/uL (0-0.2); Basophils % (auto) 0.4 % (0.0-2.0); Eosinophils # (auto) 0.2 10 ^3/uL (0-0.8); Eosinophils % (auto) 3.6 % (0.0-7.0); Hematocrit 45.9 % (41.0-53.0); Hemoglobin 14.7 g/dL (13.5-17.5); Lymphocytes # (auto) 1.7 10 ^3/uL (0.4-5.4); Lymphocytes % (auto) 26.3 % (10.0-50.0); Mean Corpuscular Volume 84.5 fL (80.0-100.0); Monocytes # (auto) 0.5 10 ^3/uL (0-1.3); Monocytes % (auto) 7.3 % (0.0-12.0); Neutrophils % (auto) 62.4 % (37.0-80.0); Platelet Count (auto) 215 10^3/uL (140-450); Red Blood Cells 5.43 10^6/uL (4.5-5.90); Red Cell Distribution Width 14.5 % (11.8-14.3); White Blood Cell 6.5 10^3/uL (4.4-10.8)
[2024-09-05] MEDS ORDERED: EMPAGLIFLOZIN 10 MG TAB PO SCH (07:00)
[2024-09-05 07:12] LABS: Alanine Aminotransferase 12 U/L (7-40); Albumin 4.3 g/dL (3.2-4.8); Alkaline Phosphatase 89 U/L (46-116); Anion Gap 9 (5-15); Aspartate Aminotransferase 16 U/L (13-40); BUN/Creatinine Ratio 13.3 (10.0-20.0); Bilirubin, Total 0.8 mg/dL (0.2-1.0); Blood Urea Nitrogen 14 mg/dL (9-23); Calcium 9.5 mg/dL (8.7-10.4); Carbon Dioxide 28 mmol/L (20-31); Glucose 90 mg/dL (74-106); Potassium 4.1 mmol/L (3.5-5.1); Sodium 145 mmol/L (136-145); Total Protein 6.6 g/dL (5.7-8.2)
[2024-09-05 07:34] LABS: Chloride 108 mmol/L (98-107)
[2024-09-05 07:40] LABS: INR 1.02 (0.9-1.15); Prothrombin Time 10.8 sec (9.3-11.8)
[2024-09-05 08:03] VITALS: PULSE 55; RESP 12; O2SAT 97
--- NOTE | 2024-09-05 09:57 | DVHPN2 ---
Subjective Continues to complain of chest pain Reviewed: Care Plan, H&P, Labs, Medications, Previous Orders, Radiology Changes from previous H/P or p: No Changes Objective Vitals Vital Signs Date Time Temp Pulse Resp B/P (MAP) Pulse Ox O2 Delivery O2 Flow Rate FiO2 09/05/24 08:03 55 12 97 Nasal cannula 2 09/05/24 07:30 97.9 121/68 (85) 97.9 General Appearance: Alert, Oriented X3, Cooperative, mild distress HEENT: Atraumatic Lungs: Other (Decreased air entry bilateral) Cardiovascular: Normal S1, Normal S2, No murmurs, Other (Bradycardia) Abdomen: Normal bowel sounds, Soft, No tenderness Neuro: Normal speech, Cranial nerves 3-12 NL Skin: Other (Thoracic surgical scars) Psych/Mental Status: Mental status NL, Mood NL Medications Current Medications Medications Dose Ordered Sig/Corey Route Start Time Stop Time Status Last Admin Dose Admin Aspirin 81 mg DAILY PO 09/05/24 10:00 Metoprolol Tartrate 100 mg BID PO 09/04/24 22:00 09/04/24 22:14 100 MG Atorvastatin Calcium 80 mg HS PO 09/04/24 22:00 09/04/24 21:43 80 MG Gabapentin 800 mg QID PO 09/04/24 22:00 09/05/24 05:46 800 MG Hydralazine HCl 5 mg Q6H PRN IV 09/04/24 18:45 Sodium Chloride 10 ml Q8HR IV 09/04/24 22:00 09/05/24 06:06 10 ML Docusate Sodium 100 mg BIDPRN PRN PO 09/04/24 18:45 Acetaminophen 650 mg Q6HP PRN PO 09/04/24 18:45 09/05/24 05:25 650 MG Acetaminophen/ Hydrocodone Bitart 1 tab Q4HP PRN PO 09/04/24 18:45 09/05/24 05:26 1 TAB Ondansetron HCl 4 mg Q4HP PRN IV 09/04/24 18:45 09/05/24 05:24 4 MG Nitroglycerin 0.4 mg Q5MINP PRN SL 09/04/24 18:45 Morphine Sulfate 2 mg Q30M PRN IV 09/04/24 18:45 09/05/24 05:25 2 MG Laboratory Results Laboratory Tests 09/05/24 05:43 Chemistry Test 09/04/24 16:05 09/05/24 05:43 Albumin 4.6 g/dL (3.2-4.8) 4.3 g/dL (3.2-4.8) Calcium Level 9.3 mg/dL (8.7-10.4) 9.5 mg/dL (8.7-10.4) Total Protein 7.1 g/dL (5.7-8.2) 6.6 g/dL (5.7-8.2) Coagulation Test 09/05/24 01:00 09/05/24 06:57 Prothrombin Time 10.9 sec (9.3-11.8) 10.8 sec (9.3-11.8) Prothrombin Time INR 1.03 (0.9-1.15) 1.02 (0.9-1.15) Activated Partial Thromboplast Time 32.5 SEC (24.5-34.5) 33.0 SEC (24.5-34.5) Cardiac Markers Test 09/04/24 16:05 B-Type Natriuretic Peptide 115.81 pg/mL (0-100) LFT Test 09/04/24 16:05 09/05/24 05:43 Alanine Aminotransferase (ALT) 13 U/L (7-40) 12 U/L (7-40) Alkaline Phosphatase 99 U/L (46-116) 89 U/L (46-116) Aspartate Amino Transferase (AST) 18 U/L (13-40) 16 U/L (13-40) Total Bilirubin 0.6 mg/dL (0.2-1.0) 0.8 mg/dL (0.2-1.0) Labs and/or images reviewed: Labs reviewed by me, Image(s) reviewed by me Assessment/Plan Assessment/Plan A 64-year-old male patient; with chronic hypoxic respiratory failure due to bilateral lobectomies on home oxygen therapy, hypertensive heart disease with heart failure, and chronic back pain; who presented to the emergency department with chest pain. #Chest pain; to rule out ACS; consulted cardiology; telemetry; continue aspirin and statin; reviewed troponin and EKG; continue pain management as indicated; continue monitoring #Bradycardia; could be related to metoprolol; telemetry; cardiology consulted; continue monitoring #Hypertensive heart disease with heart failure; not in exacerbation; reviewed echocardiogram as below; telemetry; continue current medical management; cardiology consulted; continue monitoring #Chronic hypoxic respiratory failure due to bilateral lobectomies on home oxygen therapy; stable oxygen requirement; continue oxygen therapy as indicated; continue monitoring #Chronic back pain; continue pain management as indicated; continue monitoring #Obesity; counseled the patient on the importance of adopting healthy lifestyle with diet and exercise in order to lose weight; continue monitoring #Grief; the patient just lost his mother; left AMA on September 03, 2024 to bury his mother; no suicide ideation/plans; continue monitoring September 03, 2024 Echocardiogram: LVEF is severely reduced at 30-35% with global hypokinesis Moderate to severe left ventricular hypertrophy Right ventricle mildly dilated, mildly reduced function No significant valve disease Goals of care discussed with the patient for 20 minutes; full code Late Entry. This medical document was created using an electronic medical record system with computerized dictation system. Although this document has been carefully reviewed, there might still be some phonetic and typographical errors. These areas are purely typographical due to imperfections of the software programs, and do not reflect any compromise in the patient's medical care. Plan discussed with: Patient, Other (Nurse) My Orders Orders - SHU BILLINGS MD Procedure Category Date Status Time * Cardiology Consult CONS 09/05/24 Verified 09:55 Date of Service: Sep 05, 2024 Billing Provider: SHU BILLINGS MD Common Visit Codes: [id number] INP/OBS CARE(HIGH) Secondary Visit Codes: [id number] CARE PLAN 30 MINUTES (20 minutes) SHU BILLINGS MD Sep 05, 2024 09:57
[2024-09-05] MEDS ORDERED: SPIRONOLACTONE 25 MG TAB PO SCH (10:00)
[2024-09-05] MEDS: ASPirin-EC 81 mg tab PO SCH (10:52)
[2024-09-05 12:29] LABS: Urine Bacteria None Seen /hpf (None Seen)
[2024-09-05 12:35] LABS: Urine Blood Negative /uL (Negative); Urine Clarity Clear (Clear); Urine Color Light-Yellow (Yellow); Urine Protein, UAD Negative (Negative); Urine Specific Gravity 1.021 (1.001-1.035); Urine Squamous Epithelial Cell None Seen /hpf (<5); Urine Urobilinogen Normal (Negative); Urine WBC < 1 /HPF (0-3); Urine pH 5.5 (5.0-9.0)
--- NOTE | 2024-09-05 13:49 | DVHINCON2 ---
Date Seen: Sep 05, 2024 Referring Physician MD Duran Reason for Consultation Chest pain History of Present Illness This is a 64-year-old male patient who presents to the emergency room with chief complaint of chest pain. The patient reports that the chest pain began on August 23. He states that since then it has been constant. He reports coming to the emergency room a few days ago but then left against medical advice because he states he had something to take care of. He now returns with the same chest pain. He describes the pain as constant, unprovoked, pressure-like in nature, beginning in his right neck and radiating down his right chest down his right a rm. He denies any associated symptoms. Initial twelve lead electrocardiogram reveals normal sinus rhythm with diffused ST segment changes. Initial troponin level of 55ng/L with flat trend thereafter. 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 The patient denies any previous ischemic workup. He reports recently establishing care with a forestry tree pruner, but does not remember his name at this time. Past Medical History Past medical history reviewed. No other significant than mentioned above. Past Surgical History Right upper lobe lobectomy Family History: Patient reports no known family medical history. Family History Family history reviewed. Social History Patient has a 20 pack-year history, quit smoking approximately 20 years ago Patient admits to remote history of cocaine abuse last time was approximately 30 years ago Denies alcohol use Allergies: Coded Allergies: NO KNOWN ALLERGIES (Unverified , 02/16/17) Home Meds Active Scripts Clonidine Hydrochloride (Clonidine Hcl) 0.2 Mg Tab, 1 TAB PO BIDP PRN, #20 TAB 0 Refills To be used if systolic pressures above 160 or diastolic pressures above 90. Prov:DELON DEE PAC 02/22/24 Dronedarone Hydrochloride (Multaq) 400 Mg Tab, 400 MG PO BID for 30 Days, #60 TAB Prov:TAM MORTON MD 01/02/23 Furosemide (Lasix) 20 Mg Tb, 2 TAB PO DAILY, #60 TAB 1 Refill Prov:TAM MORTON MD 01/02/23 Empagliflozin (Jardiance) 10 Mg Tab, 10 MG PO QAM for 30 Days, #30 TAB Prov:TAM MORTON MD 01/02/23 Spironolactone (Aldactone) 25 Mg Tab, 12.5 MG PO DAILY for 30 Days, #30 TAB Prov:TAM MORTON MD 01/02/23 Sacubitril-Valsartan (Entresto 24-26 mg) 1 Tab Tab, 1 TAB PO BID for 30 Days, #60 TAB Prov:TAM MORTON MD 01/02/23 Metoprolol Tartrate (LOPRESSOR TABLET) 50 Mg Tb, 100 MG PO BID for 30 Days, #60 TAB Prov:TAM MORTON MD 01/02/23 Reported Medications Oxycodone W/ Acetaminophen (Apap/Oxycodone) 1 Tab Tab, 1 TAB PO PRN for 30 Days, #180 09/05/24 Fluticasone Furoate-Vilanterol (Fluticasone Furoate/Vilan 200-25 Mcg/Act) 1 Inh Inh, 1 PUFF INH DAILY for 30 Days, #60 09/05/24 Methocarbamol (Methocarbamol) 500 Mg Tab, 1 TAB PO TID for 30 Days, #90 09/05/24 Gabapentin (Gabapentin) 800 Mg Tab, 1 TAB PO QID 09/02/24 Oxycodone Hcl (OxyCONTIN ER Tablet) 10 Mg Tb, 1 TAB PO QIDP, #60 TAB 09/02/24 Morphine Sulfate (Morphine Sulfate) 15 Mg Tab, 15 MG PO BIDP, TAB 12/28/22 Hydrochlorothiazide (Hydrochlorothiazide) 12.5 Mg Cap, 12.5 MG PO DAILY, CAP 12/28/22 Aspirin (Aspir-81) 81 Mg Tab, 1 TAB PO DAILY 02/18/17 Atorvastatin Calcium (ATORVASTATIN CALCIUM) 80 Mg Tab, 1 TAB PO DAILY 02/18/17 Albuterol Sulfate (VENTOLIN MDI) 90 Mcg Ih, 90 MCG IN 02/16/17 Discontinued Reported Medications Amlodipine Besylate (Amlodipine Besylate) 2.5 Mg Tab, 1 TAB PO DAILY 09/02/24 Nicotine Polacrilex (Nicotine) 4 Mg Gum, 4 MG MT 5XD, GUM 06/20/17 Beclomethasone Dipropionate (Qvar) 40 Mcg/Act Aer, 40 MCG IN DAILYP PRN for SHORTNESS OF BREATH, AER 06/20/17 Famotidine (Famotidine) 20 Mg Tab, 40 MG PO DAILYP PRN for FOR STOMACH DISTRESS for 30 Days, MG 06/20/17 Tramadol Hcl (Tramadol Hcl) 50 Mg Tab, 50 MG PO TID, TAB 06/20/17 Omeprazole (PRILOSEC) 20 Mg Cap, 1 CAP PO DAILY 02/18/17 Cyclobenzaprine Hcl (Cyclobenzaprine Hcl) 10 Mg Tab, 10 MG PO TIDPRN for FOR MUSCLE SPASM 02/18/17 Diphenhydramine Hcl (BANOPHEN) 50 Mg Cap, 25 MG PO TID 02/18/17 Oxycodone W/ Acetaminophen (Percocet 5/325MG) 1 Tab Tb, 1 TAB PO QID, #120 TAB 12/28/22 Amlodipine Besylate (NORVASC TABLET) 5 Mg Tb, 1 TAB PO DAILY 02/18/17 Metoprolol Tartrate (Metoprolol Tartrate) 25 Mg Tab, 100 TAB PO BID 02/16/17 Gabapentin (Gabapentin) 600 Mg Tab, 800 MG PO TID, TAB 02/16/17 Discontinued Scripts Apixaban Base (ELIQUIS) 2.5 Mg Tab, 2.5 MG PO BID for 30 Days, #60 TAB Prov:TAM MORTON MD 01/02/23 Amoxicillin & Pot Clavulanate (Augmentin) 500 Mg Tab, 1 TAB PO BID, #14 TAB Prov:TAM MORTON MD 01/02/23 Aspirin (Aspirin Low Dose) 81 Mg Tab, 81 MG PO DAILY for 30 Days, #30 TAB Prov:TAM MORTON MD 01/02/23 Home Meds Home medications reviewed. Current Medications Current Medications Medications (Trade) Dose Ordered Sig/Corey Route PRN Reason Start Time Stop Time Status Last Admin Aspirin (Ecotrin Enteric Coated Tablet) 81 mg DAILY PO 09/05/24 10:00 09/05/24 10:52 Empaglifozin (Jardiance) 10 mg QAM PO 09/05/24 07:00 09/04/24 21:09 DC Metoprolol Tartrate (Lopressor Tablet) 100 mg BID PO 09/04/24 22:00 09/04/24 22:14 Sacubitril/ Valsartan (Entresto 24-26 Mg tab) 1 tab BID PO 09/04/24 22:00 09/04/24 21:09 DC Spironolactone (Aldactone) 12.5 mg DAILY PO 09/05/24 10:00 09/04/24 21:09 DC Atorvastatin Calcium (Lipitor) 80 mg HS PO 09/04/24 22:00 09/04/24 21:43 Patient Own Medication 1 tab BIDP PRN PO SBP > 165 09/04/24 18:45 09/04/24 21:09 DC Gabapentin (Neurontin Capsule) 800 mg QID PO 09/04/24 22:00 09/05/24 12:19 Hydralazine HCl (Apresoline Injection) 5 mg Q6H PRN IV SBP > 165 09/04/24 18:45 Sodium Chloride (Saline Lock Ns) 10 ml Q8HR IV 09/04/24 22:00 09/05/24 06:06 Docusate Sodium (Colace Capsule) 100 mg BIDPRN PRN PO FOR CONSTIPATION 09/04/24 18:45 Acetaminophen (Tylenol Tablet) 650 mg Q6HP PRN PO PAIN SCALE 1-3 OR TEMP>100.4 09/04/24 18:45 09/05/24 05:25 Acetaminophen/ Hydrocodone Bitart ([place] 5/325MG Tab) 1 tab Q4HP PRN PO MODERATE PAIN (4-6 PAIN SCALE) 09/04/24 18:45 09/05/24 05:26 Ondansetron HCl (Zofran) 4 mg Q4HP PRN IV NAUSEA / VOMITING 09/04/24 18:45 09/05/24 12:27 Nitroglycerin (Ntrostat Sublingual) 0.4 mg Q5MINP PRN SL FOR CHEST PAIN 09/04/24 18:45 Morphine Sulfate 2 mg Q30M PRN IV FOR CHEST PAIN 09/04/24 18:45 09/05/24 12:28 Review of Systems Constitutional: No symptom reported Ears, Nose, & Throat: No symptom reported Eyes: No symptom reported Neurological: No symptoms reported Pulmonary/Respiratory: No symptoms reported Cardiovascular: Chest pain Gastrointestinal: No symptom reported Genitourinary: No symptom reported Musculoskeletal: No symptom reported Skin: No symptom reported Psychiatric: No symptom reported Endocrine: No symptom reported Hematologic/Lymphatic: No symptom reported Vital Signs Vital Signs Date Time Temp Pulse Resp B/P (MAP) Pulse Ox O2 Delivery O2 Flow Rate FiO2 09/05/24 12:28 54 14 144/86 09/05/24 08:03 97 Room Air* 0 21 09/05/24 07:30 97.9 97.9 Physical Exam General Appearance: Cooperative. Well-developed. Well-nourished. No acute distress. Pulmonary/Respiratory: Clear, bilateral breaths sounds. Cardiovascular/Chest: Regular rate and rhythm. Peripheral Pulses: 2+ Radial (R). 2+ Radial (L). 2+ Pedal (R). 2+ Pedal (L) Abdominal Exam: Normal bowel sounds. Ankle Exam: Negative ankle edema Lower extremities: Negative lower extremity edema Neuro/Mental Status: A/OX4, coherent. Thoughts/Psych: Normal thought pattern. Appropriate mood and affect. Good judgment and insight. Appearance: No acute distress. Skin Exam: Normal inspection. Normal color. Warm and dry. Labs/Diagnostic Data Labs Test 09/05/24 12:20 09/05/24 06:57 09/05/24 05:43 09/04/24 22:58 Range/Units Urine Color Light-yellow Yellow Urine Clarity Clear Clear Urine pH 5.5 5.0-9.0 Urine Specific [place] 1.021 1.001-1.035 Urine Protein Negative Negative Urine Ketones Negative Negative Urine Blood Negative Negative /uL Urine Nitrite Negative Negative Urine Bilirubin Negative Negative Urine Urobilinogen Normal Negative mg/dL Urine Leukocyte Esterase Negative Negative /uL Urine RBC <1 0 - 3 /hpf Urine Microscopic WBC < 1 0-3 /HPF Urine Squamous Epithelial Cells None seen <5 /hpf Urine Bacteria None seen None Seen /hpf Urine Glucose Normal Normal mg/dL Prothrombin Time 10.8 9.3-11.8 sec Prothrombin Time INR 1.02 0.9-1.15 Activated Partial Thromboplast Time 33.0 24.5-34.5 SEC White Blood Count 6.5 4.4-10.8 10^3/uL Red Blood Count 5.43 4.5-5.90 10^6/uL Hemoglobin 14.7 13.5-17.5 g/dL Hematocrit 45.9 41.0-53.0 % Mean Corpuscular Volume 84.5 80.0-100.0 fL Mean Corpuscular Hemoglobin 27.0 L 28.0-32.0 pg Mean Corpuscular Hemoglobin Concent 32.0 32.0-36.0 g/dL Red Cell Distribution Width 14.5 H 11.8-14.3 % Platelet Count 215 140-450 10^3/uL Mean Platelet Volume 7.7 6.9-10.8 fL Neutrophils (%) (Auto) 62.4 37.0-80.0 % Lymphocytes (%) (Auto) 26.3 10.0-50.0 % Monocytes (%) (Auto) 7.3 0.0-12.0 % Eosinophils (%) (Auto) 3.6 0.0-7.0 % Basophils (%) (Auto) 0.4 0.0-2.0 % Neutrophils # (Auto) 4.0 1.6-8.6 10 ^3/uL Lymphocytes # (Auto) 1.7 0.4-5.4 10 ^3/uL Monocytes # (Auto) 0.5 0-1.3 10 ^3/uL Eosinophils # (Auto) 0.2 0-0.8 10 ^3/uL Basophils # (Auto) 0 0-0.2 10 ^3/uL Nucleated Red Blood Cells 0.0 % Sodium Level 145 136-145 mmol/L Potassium Level 4.1 3.5-5.1 mmol/L Chloride Level 108 H 98-107 mmol/L Carbon Dioxide Level 28 20-31 mmol/L Anion Gap 9 5-15 Blood Urea Nitrogen 14 9-23 mg/dL Creatinine 1.05 0.700-1.30 mg/dL Glomerular Filtration Rate Calc 80 >90 mL/min BUN/Creatinine Ratio 13.3 10.0-20.0 Serum Glucose 90 74-106 mg/dL Calcium Level 9.5 8.7-10.4 mg/dL Total Bilirubin 0.8 0.2-1.0 mg/dL Aspartate Amino Transferase (AST) 16 13-40 U/L Alanine Aminotransferase (ALT) 12 7-40 U/L Alkaline Phosphatase 89 46-116 U/L Total Protein 6.6 5.7-8.2 g/dL Albumin 4.3 3.2-4.8 g/dL Troponin I High Sensitivity 46 </=54 ng/L Test 09/04/24 16:05 Range/Units B-Type Natriuretic Peptide 115.81 0-100 pg/mL Assessment Chest pain, rule out coronary artery disease NSTEMI Acute on chronic HFrEF, NYHA class III Paroxysmal atrial fibrillation, Stage 3A (not on NOAC) Hx of Valley Fever s/p R lobectomy Obesity Plan/Recommendation We will continue with the following plan/recommendations (Dr. Castellanos): * Transthoracic echocardiogram reveals EF 30-35% with global hypokinesis * Guideline directed medical therapy for CHF as tolerated * Add MRA (spironolactone) with stable potassium * Chest pain protocol * OUSMANE score: 3 points * HEART score: 6 points (moderate score) * Single antiplatelet therapy and lipid-lowering agent * Close Cardiac surveillance * Coronary angiogram Patient seen and examined at bedside with . Patient may benefit from coronary angiogram with left heart catheterization. The procedure was discussed with the patient in full detail including risks and benefits. Risks include but are not limited to bleeding, contrast-induced nephropathy, stroke, and even . The patient understands and is agreeable to undergo the procedure. We will schedule the patient at soonest availability on 09/08/24. Thank you for allowing us to care for this patient. Please call with any questions or concerns. Critical care time spent: 44 minutes This medical document was created using an electronic medical record system with voice recognition software and computerized dictation system. Although this doc ument has been carefully reviewed, there might still be some phonetic and typographical errors. Occasional wrong-word or ``sound-alike substitutions may have occurred due to the inherent limitations of voice recognition software. These areas are purely typographical due to imperfections of the software programs and do not reflect any compromise in the patient's medical care. Toni moore read the chart carefully and recognize, using context, where these substitutions have occurred. Plan discussed with: Patient NYHA Physical activity limitations: Class3(Marked) ordinary (activity causes symtoms) Date of Service: Sep 05, 2024 Billing Provider: MARGRET DUARTE Cardiology Common Codes: [id number] INP/OBS CARE (High) Cardiology Consultation Codes: [id number] CONSULT <45MIN MARGRET DUARTE Sep 05, 2024 13:49
[2024-09-05 14:24] LABS: INR 1.04 (0.9-1.15); Partial Thromboplastin Time 33.5 SEC (24.5-34.5)
[2024-09-05 17:54] VITALS: BP 152/93; PULSE 66; RESP 16; TEMP 97.8; O2SAT 96; O2SAT 97
[2024-09-05 19:16] LABS: INR 1.04 (0.9-1.15); Partial Thromboplastin Time 32.4 SEC (24.5-34.5)
[2024-09-05 20:00] VITALS: PULSE 70; RESP 16
[2024-09-05 21:00] VITALS: BP 143/83; PULSE 68; RESP 15; TEMP 98; O2SAT 95
[2024-09-05] MEDS: SACUBITRIL-VALSARTAN 24mg/26mg TAB PO SCH (21:03)
--- NOTE | 2024-09-05 21:19 | DVHINCON2 ---
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 The patient reports that the chest pain began on August 23. He states that since then it has been constant. He reports coming to this emergency room a few days ago but then left against medical advice because he states he had something to take care of. He now returns with the same chest pain. He describes the pain as constant, unprovoked, pressure-like in nature, beginning in his right neck and radiating down his right chest down his right arm. He denies any associated symptoms. Initial twelve lead electrocardiogram reveals normal sinus rhythm with diffused ST segment changes. Initial troponin level of 55ng/L with flat trend thereafter. Chest x-ray showed NAD. The patient denies any previous ischemic workup. He reports recently establishing care with a chief cook, but does not remember his name at this time. Patient was admitted to the hospital. I am asked to consult on this patient. Past Medical History Past medical history reviewed. No other significant than mentioned above. Past Surgical History Right upper lobe lobectomy Family History: Patient reports no known family medical history. Allergies: Coded Allergies: NO KNOWN ALLERGIES (Unverified , 02/16/17) Home Meds Active Scripts Clonidine Hydrochloride (Clonidine Hcl) 0.2 Mg Tab, 1 TAB PO BIDP PRN, #20 TAB 0 Refills To be used if systolic pressures above 160 or diastolic pressures above 90. Prov:DELON DEE PAC 02/22/24 Dronedarone Hydrochloride (Multaq) 400 Mg Tab, 400 MG PO BID for 30 Days, #60 TAB Prov:TAM MORTON MD 01/02/23 Furosemide (Lasix) 20 Mg Tb, 2 TAB PO DAILY, #60 TAB 1 Refill Prov:TAM MORTON MD 01/02/23 Empagliflozin (Jardiance) 10 Mg Tab, 10 MG PO QAM for 30 Days, #30 TAB Prov:TAM MORTON MD 01/02/23 Spironolactone (Aldactone) 25 Mg Tab, 12.5 MG PO DAILY for 30 Days, #30 TAB Prov:TAM MORTON MD 01/02/23 Sacubitril-Valsartan (Entresto 24-26 mg) 1 Tab Tab, 1 TAB PO BID for 30 Days, #60 TAB Prov:TAM MORTON MD 01/02/23 Metoprolol Tartrate (LOPRESSOR TABLET) 50 Mg Tb, 100 MG PO BID for 30 Days, #60 TAB Prov:TAM MORTON MD 01/02/23 Reported Medications Oxycodone W/ Acetaminophen (Apap/Oxycodone) 1 Tab Tab, 1 TAB PO PRN for 30 Days, #180 09/05/24 Fluticasone Furoate-Vilanterol (Fluticasone Furoate/Vilan 200-25 Mcg/Act) 1 Inh Inh, 1 PUFF INH DAILY for 30 Days, #60 09/05/24 Methocarbamol (Methocarbamol) 500 Mg Tab, 1 TAB PO TID for 30 Days, #90 09/05/24 Gabapentin (Gabapentin) 800 Mg Tab, 1 TAB PO QID 09/02/24 Oxycodone Hcl (OxyCONTIN ER Tablet) 10 Mg Tb, 1 TAB PO QIDP, #60 TAB 09/02/24 Morphine Sulfate (Morphine Sulfate) 15 Mg Tab, 15 MG PO BIDP, TAB 12/28/22 Hydrochlorothiazide (Hydrochlorothiazide) 12.5 Mg Cap, 12.5 MG PO DAILY, CAP 12/28/22 Aspirin (Aspir-81) 81 Mg Tab, 1 TAB PO DAILY 02/18/17 Atorvastatin Calcium (ATORVASTATIN CALCIUM) 80 Mg Tab, 1 TAB PO DAILY 02/18/17 Albuterol Sulfate (VENTOLIN MDI) 90 Mcg Ih, 90 MCG IN 02/16/17 Discontinued Reported Medications Amlodipine Besylate (Amlodipine Besylate) 2.5 Mg Tab, 1 TAB PO DAILY 09/02/24 Nicotine Polacrilex (Nicotine) 4 Mg Gum, 4 MG MT 5XD, GUM 06/20/17 Beclomethasone Dipropionate (Qvar) 40 Mcg/Act Aer, 40 MCG IN DAILYP PRN for SHORTNESS OF BREATH, AER 06/20/17 Famotidine (Famotidine) 20 Mg Tab, 40 MG PO DAILYP PRN for FOR STOMACH DISTRESS for 30 Days, MG 06/20/17 Tramadol Hcl (Tramadol Hcl) 50 Mg Tab, 50 MG PO TID, TAB 06/20/17 Omeprazole (PRILOSEC) 20 Mg Cap, 1 CAP PO DAILY 02/18/17 Cyclobenzaprine Hcl (Cyclobenzaprine Hcl) 10 Mg Tab, 10 MG PO TIDPRN for FOR MUSCLE SPASM 02/18/17 Diphenhydramine Hcl (BANOPHEN) 50 Mg Cap, 25 MG PO TID 02/18/17 Oxycodone W/ Acetaminophen (Percocet 5/325MG) 1 Tab Tb, 1 TAB PO QID, #120 TAB 12/28/22 Amlodipine Besylate (NORVASC TABLET) 5 Mg Tb, 1 TAB PO DAILY 02/18/17 Metoprolol Tartrate (Metoprolol Tartrate) 25 Mg Tab, 100 TAB PO BID 02/16/17 Gabapentin (Gabapentin) 600 Mg Tab, 800 MG PO TID, TAB 02/16/17 Discontinued Scripts Apixaban Base (ELIQUIS) 2.5 Mg Tab, 2.5 MG PO BID for 30 Days, #60 TAB Prov:TAM MORTON MD 01/02/23 Amoxicillin & Pot Clavulanate (Augmentin) 500 Mg Tab, 1 TAB PO BID, #14 TAB Prov:TAM MORTON MD 01/02/23 Aspirin (Aspirin Low Dose) 81 Mg Tab, 81 MG PO DAILY for 30 Days, #30 TAB Prov:TAM MORTON MD 01/02/23 Current Medications Current Medications Medications (Trade) Dose Ordered Sig/Corey Route PRN Reason Start Time Stop Time Status Last Admin Aspirin (Ecotrin Enteric Coated Tablet) 81 mg DAILY PO 09/05/24 10:00 09/05/24 10:52 Empaglifozin (Jardiance) 10 mg QAM PO 09/05/24 07:00 09/04/24 21:09 DC Metoprolol Tartrate (Lopressor Tablet) 100 mg BID PO 09/04/24 22:00 09/05/24 13:49 DC 09/04/24 22:14 Sacubitril/ Valsartan (Entresto 24-26 Mg tab) 1 tab BID PO 09/04/24 22:00 09/04/24 21:09 DC Spironolactone (Aldactone) 12.5 mg DAILY PO 09/05/24 10:00 09/04/24 21:09 DC Atorvastatin Calcium (Lipitor) 80 mg HS PO 09/04/24 22:00 09/04/24 21:43 Patient Own Medication 1 tab BIDP PRN PO SBP > 165 09/04/24 18:45 09/04/24 21:09 DC Gabapentin (Neurontin Capsule) 800 mg QID PO 09/04/24 22:00 09/05/24 12:19 Hydralazine HCl (Apresoline Injection) 5 mg Q6H PRN IV SBP > 165 09/04/24 18:45 Sodium Chloride (Saline Lock Ns) 10 ml Q8HR IV 09/04/24 22:00 09/05/24 14:04 Docusate Sodium (Colace Capsule) 100 mg BIDPRN PRN PO FOR CONSTIPATION 09/04/24 18:45 Acetaminophen (Tylenol Tablet) 650 mg Q6HP PRN PO PAIN SCALE 1-3 OR TEMP>100.4 09/04/24 18:45 09/05/24 05:25 Acetaminophen/ Hydrocodone Bitart ([place] 5/325MG Tab) 1 tab Q4HP PRN PO MODERATE PAIN (4-6 PAIN SCALE) 09/04/24 18:45 09/05/24 13:42 Ondansetron HCl (Zofran) 4 mg Q4HP PRN IV NAUSEA / VOMITING 09/04/24 18:45 09/05/24 12:27 Nitroglycerin (Ntrostat Sublingual) 0.4 mg Q5MINP PRN SL FOR CHEST PAIN 09/04/24 18:45 Morphine Sulfate 2 mg Q30M PRN IV FOR CHEST PAIN 09/04/24 18:45 09/05/24 12:28 Metoprolol Succinate (Toprol Xl) 25 mg DAILY PO 09/06/24 10:00 Empaglifozin (Jardiance) 10 mg DAILY PO 09/06/24 10:00 Sacubitril/ Valsartan (Entresto 24-26 Mg tab) 1 tab BID PO 09/05/24 22:00 Review of Systems Constitutional: No symptom reported Ears, Nose, & Throat: No symptom reported Eyes: No symptom reported Neurological: No symptoms reported Pulmonary/Respiratory: No symptoms reported Cardiovascular: Chest pain Gastrointestinal: No symptom reported Genitourinary: No symptom reported Musculoskeletal: No symptom reported Skin: No symptom reported Psychiatric: No symptom reported Endocrine: No symptom reported Hematologic/Lymphatic: No symptom reported Vital Signs Vital Signs Date Time Temp Pulse Resp B/P (MAP) Pulse Ox O2 Delivery O2 Flow Rate FiO2 09/05/24 13:42 57 14 142/78 09/05/24 13:00 98 09/05/24 11:00 98.1 98.1 09/05/24 08:03 Room Air* 0 21 Physical Exam GENERAL: Alert and oriented x 3. No acute distress. EYES: PERRL, EOMI. Anicteric. HENT: Moist mucous membranes. LUNGS: Clear to auscultation bilaterally. CARDIOVASCULAR: Regular rate and rhythm. ABDOMEN: Soft, nontender and nondistended. EXTREMITIES: No edema. NEUROLOGIC: No focal neurological deficits. SKIN: Warm, dry. Labs/Diagnostic Data Labs Test 09/05/24 13:26 09/05/24 12:20 09/05/24 05:43 09/04/24 22:58 Range/Units Prothrombin Time 11.0 9.3-11.8 sec Prothrombin Time INR 1.04 0.9-1.15 Activated Partial Thromboplast Time 33.5 24.5-34.5 SEC Urine Color Light-yellow Yellow Urine Clarity Clear Clear Urine pH 5.5 5.0-9.0 Urine Specific [place] 1.021 1.001-1.035 Urine Protein Negative Negative Urine Ketones Negative Negative Urine Blood Negative Negative /uL Urine Nitrite Negative Negative Urine Bilirubin Negative Negative Urine Urobilinogen Normal Negative mg/dL Urine Leukocyte Esterase Negative Negative /uL Urine RBC <1 0 - 3 /hpf Urine Microscopic WBC < 1 0-3 /HPF Urine Squamous Epithelial Cells None seen <5 /hpf Urine Bacteria None seen None Seen /hpf Urine Glucose Normal Normal mg/dL White Blood Count 6.5 4.4-10.8 10^3/uL Red Blood Count 5.43 4.5-5.90 10^6/uL Hemoglobin 14.7 13.5-17.5 g/dL Hematocrit 45.9 41.0-53.0 % Mean Corpuscular Volume 84.5 80.0-100.0 fL Mean Corpuscular Hemoglobin 27.0 L 28.0-32.0 pg Mean Corpuscular Hemoglobin Concent 32.0 32.0-36.0 g/dL Red Cell Distribution Width 14.5 H 11.8-14.3 % Platelet Count 215 140-450 10^3/uL Mean Platelet Volume 7.7 6.9-10.8 fL Neutrophils (%) (Auto) 62.4 37.0-80.0 % Lymphocytes (%) (Auto) 26.3 10.0-50.0 % Monocytes (%) (Auto) 7.3 0.0-12.0 % Eosinophils (%) (Auto) 3.6 0.0-7.0 % Basophils (%) (Auto) 0.4 0.0-2.0 % Neutrophils # (Auto) 4.0 1.6-8.6 10 ^3/uL Lymphocytes # (Auto) 1.7 0.4-5.4 10 ^3/uL Monocytes # (Auto) 0.5 0-1.3 10 ^3/uL Eosinophils # (Auto) 0.2 0-0.8 10 ^3/uL Basophils # (Auto) 0 0-0.2 10 ^3/uL Nucleated Red Blood Cells 0.0 % Sodium Level 145 136-145 mmol/L Potassium Level 4.1 3.5-5.1 mmol/L Chloride Level 108 H 98-107 mmol/L Carbon Dioxide Level 28 20-31 mmol/L Anion Gap 9 5-15 Blood Urea Nitrogen 14 9-23 mg/dL Creatinine 1.05 0.700-1.30 mg/dL Glomerular Filtration Rate Calc 80 >90 mL/min BUN/Creatinine Ratio 13.3 10.0-20.0 Serum Glucose 90 74-106 mg/dL Calcium Level 9.5 8.7-10.4 mg/dL Total Bilirubin 0.8 0.2-1.0 mg/dL Aspartate Amino Transferase (AST) 16 13-40 U/L Alanine Aminotransferase (ALT) 12 7-40 U/L Alkaline Phosphatase 89 46-116 U/L Total Protein 6.6 5.7-8.2 g/dL Albumin 4.3 3.2-4.8 g/dL Troponin I High Sensitivity 46 </=54 ng/L Test 09/04/24 16:05 Range/Units B-Type Natriuretic Peptide 115.81 0-100 pg/mL Assessment Chest pain, rule out coronary artery disease. NSTEMI. Acute on chronic HFrEF, NYHA class III. Paroxysmal atrial fibrillation, Stage 3A (not on NOAC). History of Valley Fever s/p R lobectomy. Obesity. Plan/Recommendation I agree with your ongoing assessment and care of plan. Patient has been seen by Yesenia Aragon NP on my behalf, her and I discussed the plan with the patient. Transthoracic echocardiogram reveals EF 30-35% with global hypokinesis Guideline directed medical therapy for CHF as tolerated Add MRA (spironolactone) with stable potassium Chest pain protocol OUSMANE score: 3 points HEART score: 6 points (moderate score) Single antiplatelet therapy and lipid-lowering agent Close Cardiac surveillance Coronary angiogram Patient may benefit from coronary angiogram with left heart catheterization. The procedure was discussed with the patient in full detail including risks and benefits. Risks include but are not limited to bleeding, contrast-induced nephropathy, stroke, and even . The patient understands and is agreeable to undergo the procedure. Additional plan as per the hospital course. Plan discussed with: Patient NYHA Physical activity limitations: Class3(Marked) ordinary Date of Service: Sep 05, 2024 Billing Provider: FANG KAUFMAN MD Cardiology Common Codes: 91101-SMNSFEIRGZ HOSP CARE(High Cardiology Consultation Codes: 13010-[id number] CONSULT <45MIN FANG KAUFMAN MD Sep 05, 2024 14:43
[2024-09-06] VITALS (7 sets, daily range): BP systolic 127–167; BP diastolic 77–99; PULSE 62–71; RESP 16–20; TEMP 97.7–98.2; O2SAT 91–96
[2024-09-06 07:10] LABS: Basophils # (auto) 0 10 ^3/uL (0-0.2); Basophils % (auto) 0.6 % (0.0-2.0); Eosinophils # (auto) 0.2 10 ^3/uL (0-0.8); Hematocrit 46.5 % (41.0-53.0); Hemoglobin 14.9 g/dL (13.5-17.5); Lymphocytes # (auto) 1.1 10 ^3/uL (0.4-5.4); Lymphocytes % (auto) 21.6 % (10.0-50.0); Mean Corpuscular Hemoglobin 27.1 pg (28.0-32.0); Mean Corpuscular Hgb Conc. 31.9 g/dL (32.0-36.0); Monocytes # (auto) 0.3 10 ^3/uL (0-1.3); Monocytes % (auto) 5.9 % (0.0-12.0); Neutrophils # (auto) 3.6 10 ^3/uL (1.6-8.6); Neutrophils % (auto) 67.9 % (37.0-80.0); Nucleated Red Blood Cells % 0.1 %; Platelet Count (auto) 191 10^3/uL (140-450); Red Blood Cells 5.47 10^6/uL (4.5-5.90); Red Cell Distribution Width 14.4 % (11.8-14.3); White Blood Cell 5.2 10^3/uL (4.4-10.8)
[2024-09-06 07:35] LABS: Alanine Aminotransferase 11 U/L (7-40); Alkaline Phosphatase 81 U/L (46-116); Aspartate Aminotransferase 15 U/L (13-40); Blood Urea Nitrogen 13 mg/dL (9-23); Calcium 9.2 mg/dL (8.7-10.4); Glucose 83 mg/dL (74-106); Sodium 142 mmol/L (136-145); Total Protein 6.3 g/dL (5.7-8.2)
[2024-09-06 07:36] LABS: Bilirubin, Total 1.1 mg/dL (0.2-1.0)
[2024-09-06 07:40] LABS: Chloride 108 mmol/L (98-107)
[2024-09-06 07:48] LABS: Anion Gap 8 (5-15); Carbon Dioxide 26 mmol/L (20-31)
[2024-09-06] MEDS: METOPROLOL SUCCINATE XL 50 MG TAB PO SCH (09:05)
[2024-09-06] MEDS: EMPAGLIFLOZIN 10 MG TAB PO SCH (09:06)
--- NOTE | 2024-09-06 13:53 | DVHPN2 ---
Subjective Decreasing chest pain Reviewed: Care Plan, H&P, Labs, Medications, Previous Orders, Radiology Changes from previous H/P or p: Changes Objective Vitals Vital Signs Date Time Temp Pulse Resp B/P (MAP) Pulse Ox O2 Delivery O2 Flow Rate FiO2 09/06/24 09:30 98.2 65 19 160/99 (119) 96 98.2 09/06/24 08:00 Room Air* 0 21 Intake/Output Intake and Output 09/06/24 07:00 Intake Total 920 ml Output Total 350 ml Balance 570 ml Intake Oral 920 ml Output Urine Total 350 ml # Voids 2 General Appearance: Alert, Oriented X3, Cooperative, No acute distress HEENT: Atraumatic Lungs: Other (Decreased air entry bilateral) Cardiovascular: Normal S1, Normal S2, No murmurs, Other (Bradycardia) Abdomen: Normal bowel sounds, Soft, No tenderness Neuro: Normal speech, Cranial nerves 3-12 NL Skin: Other (Thoracic surgical scars) Psych/Mental Status: Mental status NL, Mood NL Medications Current Medications Medications Dose Ordered Sig/Corey Route Start Time Stop Time Status Last Admin Dose Admin Aspirin 81 mg DAILY PO 09/05/24 10:00 09/06/24 09:06 81 MG Atorvastatin Calcium 80 mg HS PO 09/04/24 22:00 09/05/24 21:04 80 MG Gabapentin 800 mg QID PO 09/04/24 22:00 09/06/24 11:42 800 MG Hydralazine HCl 5 mg Q6H PRN IV 09/04/24 18:45 Sodium Chloride 10 ml Q8HR IV 09/04/24 22:00 09/06/24 06:45 10 ML Docusate Sodium 100 mg BIDPRN PRN PO 09/04/24 18:45 Acetaminophen 650 mg Q6HP PRN PO 09/04/24 18:45 09/05/24 05:25 650 MG Acetaminophen/ Hydrocodone Bitart 1 tab Q4HP PRN PO 09/04/24 18:45 09/06/24 09:04 1 TAB Ondansetron HCl 4 mg Q4HP PRN IV 09/04/24 18:45 09/05/24 12:27 4 MG Nitroglycerin 0.4 mg Q5MINP PRN SL 09/04/24 18:45 Morphine Sulfate 2 mg Q30M PRN IV 09/04/24 18:45 09/05/24 12:28 2 MG Metoprolol Succinate 25 mg DAILY PO 09/06/24 10:00 09/06/24 09:05 25 MG Empaglifozin 10 mg DAILY PO 09/06/24 10:00 09/06/24 09:06 10 MG Sacubitril/ Valsartan 1 tab BID PO 09/05/24 22:00 09/06/24 09:05 1 TAB Laboratory Results Laboratory Tests 09/06/24 06:03 Chemistry Test 09/06/24 06:03 Albumin 4.0 g/dL (3.2-4.8) Calcium Level 9.2 mg/dL (8.7-10.4) Total Protein 6.3 g/dL (5.7-8.2) Coagulation Test 09/05/24 18:48 Prothrombin Time 11.0 sec (9.3-11.8) Prothrombin Time INR 1.04 (0.9-1.15) Activated Partial Thromboplast Time 32.4 SEC (24.5-34.5) LFT Test 09/06/24 06:03 Alanine Aminotransferase (ALT) 11 U/L (7-40) Alkaline Phosphatase 81 U/L (46-116) Aspartate Amino Transferase (AST) 15 U/L (13-40) Total Bilirubin 1.1 mg/dL (0.2-1.0) H Urinalysis Test 09/05/24 12:20 Urine Color Light-yellow (Yellow) Urine Clarity Clear (Clear) Urine pH 5.5 (5.0-9.0) Urine Specific [place] 1.021 (1.001-1.035) Urine Protein Negative (Negative) Urine Ketones Negative (Negative) Urine Blood Negative /uL (Negative) Urine Nitrite Negative (Negative) Urine Bilirubin Negative (Negative) Urine Urobilinogen Normal mg/dL (Negative) Urine Leukocyte Esterase Negative /uL (Negative) Urine RBC <1 /hpf (0 - 3) Urine Microscopic WBC < 1 /HPF (0-3) Urine Squamous Epithelial Cells None seen /hpf (<5) Urine Bacteria None seen /hpf (None Seen) Urine Glucose Normal mg/dL (Normal) Labs and/or images reviewed: Labs reviewed by me, Image(s) reviewed by me Assessment/Plan Assessment/Plan A 64-year-old male patient; with chronic hypoxic respiratory failure due to bilateral lobectomies due to Valley Fever on home oxygen therapy, hypertensive heart disease with heart failure, and chronic back pain; who presented to the emergency department with chest pain. #Chest pain; to rule out ACS; cardiology is following: Cardiac Cath on Sunday; telemetry; continue aspirin and statin; reviewed troponin and EKG; continue pain management as indicated; continue monitoring #Bradycardia; could be related to metoprolol; telemetry; cardiology is following; continue monitoring #Hypertensive heart disease with heart failure; not in exacerbation; reviewed echocardiogram as below; telemetry; continue current medical management; cardiology is following; continue monitoring #Chronic hypoxic respiratory failure due to bilateral lobectomies due to Valley Fever on home oxygen therapy; stable oxygen requirement; continue oxygen therapy as indicated; continue monitoring #Chronic back pain; continue pain management as indicated; continue monitoring #Obesity; counseled the patient on the importance of adopting healthy lifestyle with diet and exercise in order to lose weight; continue monitoring #Grief; the patient just lost his mother; left AMA on September 03, 2024 to bury his mother; no suicide ideation/plans; continue monitoring September 03, 2024 Echocardiogram: LVEF is severely reduced at 30-35% with global hypokinesis Moderate to severe left ventricular hypertrophy Right ventricle mildly dilated, mildly reduced function No significant valve disease Late Entry. This medical document was created using an electronic medical record system with computerized dictation system. Although this document has been carefully reviewed, there might still be some phonetic and typographical errors. These areas are purely typographical due to imperfections of the software programs, and do not reflect any compromise in the patient's medical care. Plan discussed with: Patient, Other (Nurse) Date of Service: Sep 06, 2024 Billing Provider: SHU BILLINGS MD Common Visit Codes: [id number] INP/OBS CARE(HIGH) SHU BILLINGS MD Sep 06, 2024 13:53
[2024-09-06] MEDS: hydrALAZINE HCL 20 MG/ML VL IV PRN (17:41)
--- NOTE | 2024-09-06 21:02 | DVHPN2 ---
Progress Note - Dictate Date Seen: Sep 06, 2024 Medical Necessity Reason Pt with a Central, PICC or Fol: No Subjective Patient was seen and evaluated in follow up. Patient is complaining of chest pain. Patient is recommended for cardiac cath, tentatively scheduled for 09/08. Telemetry reviewed. vital signs Vital Sign Date Time Temp Pulse Resp B/P (MAP) Pulse Ox O2 Delivery O2 Flow Rate FiO2 09/06/24 17:41 168/88 09/06/24 17:13 98.2 62 19 91 98.2 09/06/24 08:00 Room Air* 0 21 Total Intake and Output 09/05/24 09/05/24 09/06/24 15:00 23:00 07:00 Intake Total 200 ml 720 ml Output Total 350 ml Balance -150 ml 720 ml medications Current Medications Medications Dose Ordered Sig/Corey Route Start Time Stop Time Status Last Admin Dose Admin Aspirin 81 mg DAILY PO 09/05/24 10:00 09/06/24 09:06 81 MG Atorvastatin Calcium 80 mg HS PO 09/04/24 22:00 09/05/24 21:04 80 MG Gabapentin 800 mg QID PO 09/04/24 22:00 09/06/24 17:32 800 MG Hydralazine HCl 5 mg Q6H PRN IV 09/04/24 18:45 09/06/24 17:41 5 MG Sodium Chloride 10 ml Q8HR IV 09/04/24 22:00 09/06/24 14:22 10 ML Docusate Sodium 100 mg BIDPRN PRN PO 09/04/24 18:45 Acetaminophen 650 mg Q6HP PRN PO 09/04/24 18:45 09/05/24 05:25 650 MG Acetaminophen/ Hydrocodone Bitart 1 tab Q4HP PRN PO 09/04/24 18:45 09/06/24 17:45 1 TAB Ondansetron HCl 4 mg Q4HP PRN IV 09/04/24 18:45 09/05/24 12:27 4 MG Nitroglycerin 0.4 mg Q5MINP PRN SL 09/04/24 18:45 Morphine Sulfate 2 mg Q30M PRN IV 09/04/24 18:45 09/05/24 12:28 2 MG Metoprolol Succinate 25 mg DAILY PO 09/06/24 10:00 4/26/25 09:05 25 MG Empaglifozin 10 mg DAILY PO 09/06/24 10:00 09/06/24 09:06 10 MG Sacubitril/ Valsartan 1 tab BID PO 09/05/24 22:00 09/06/24 09:05 1 TAB objective GENERAL: Alert and oriented x 3. No acute distress. EYES: PERRL, EOMI. Anicteric. HENT: Moist mucous membranes. LUNGS: Clear to auscultation bilaterally. CARDIOVASCULAR: Regular rate and rhythm. ABDOMEN: Soft, nontender and nondistended. EXTREMITIES: No edema. NEUROLOGIC: No focal neurological deficits. SKIN: Warm, dry. laboratory and microbiology Laboratory Tests 09/06/24 06:03 Test 09/06/24 06:03 Range/Units Serum Glucose 83 74-106 mg/dL Problem List Chest pain, rule out coronary artery disease. NSTEMI. Acute on chronic HFrEF, NYHA class III. Paroxysmal atrial fibrillation, Stage 3A (not on NOAC). History of Valley Fever s/p R lobectomy. Obesity. Assessment/Plan Continued all current supportive medical care. Cardiac cath 09/08/24. Morphine ad [place] for pain management. Aspirin, Lipitor, Metoprolol. IV Hydralazine for SPB > 165. Entresto. Additional plan as per the hospital course. Plan discussed with: Patient FANG KAUFMAN MD Sep 06, 2024 20:26
[2024-09-07] VITALS (8 sets, daily range): BP systolic 140–157; BP diastolic 80–97; PULSE 63–69; RESP 17–20; TEMP 97.7–98.2; O2SAT 94–96
[2024-09-07] MEDS: DOCUSATE SOD 100 MG CAP PO PRN (11:40)
--- NOTE | 2024-09-07 12:49 | DVHPN2 ---
Subjective Almost no chest pain Reviewed: Care Plan, H&P, Labs, Medications, Previous Orders, Radiology, Other (Consultation) Changes from previous H/P or p: Changes Objective Vitals Vital Signs Date Time Temp Pulse Resp B/P (MAP) Pulse Ox O2 Delivery O2 Flow Rate FiO2 09/07/24 10:18 65 144/80 09/07/24 09:00 97.8 18 94 97.8 09/07/24 08:00 Room Air* 0 21 Intake/Output Intake and Output 09/07/24 07:00 Intake Total 300 ml Balance 300 ml Intake Oral 300 ml # Voids 6 General Appearance: Alert, Oriented X3, Cooperative, No acute distress HEENT: Atraumatic Lungs: Other (Decreased air entry bilateral) Cardiovascular: Normal S1, Normal S2, No murmurs, Other (Bradycardia) Abdomen: Normal bowel sounds, Soft, No tenderness Neuro: Normal speech, Cranial nerves 3-12 NL Skin: Other (Thoracic surgical scars) Psych/Mental Status: Mental status NL, Mood NL Medications Current Medications Medications Dose Ordered Sig/Corey Route Start Time Stop Time Status Last Admin Dose Admin Aspirin 81 mg DAILY PO 09/05/24 10:00 09/06/24 09:06 81 MG Atorvastatin Calcium 80 mg HS PO 09/04/24 22:00 09/06/24 21:47 80 MG Gabapentin 800 mg QID PO 09/04/24 22:00 09/07/24 11:40 800 MG Hydralazine HCl 5 mg Q6H PRN IV 09/04/24 18:45 09/06/24 17:41 5 MG Sodium Chloride 10 ml Q8HR IV 09/04/24 22:00 09/07/24 05:54 10 ML Docusate Sodium 100 mg BIDPRN PRN PO 09/04/24 18:45 09/07/24 11:40 100 MG Acetaminophen 650 mg Q6HP PRN PO 09/04/24 18:45 09/05/24 05:25 650 MG Acetaminophen/ Hydrocodone Bitart 1 tab Q4HP PRN PO 09/04/24 18:45 09/07/24 11:47 1 TAB Ondansetron HCl 4 mg Q4HP PRN IV 09/04/24 18:45 09/05/24 12:27 4 MG Nitroglycerin 0.4 mg Q5MINP PRN SL 09/04/24 18:45 Morphine Sulfate 2 mg Q30M PRN IV 09/04/24 18:45 09/05/24 12:28 2 MG Metoprolol Succinate 25 mg DAILY PO 09/06/24 10:00 09/07/24 10:18 25 MG Empaglifozin 10 mg DAILY PO 09/06/24 10:00 09/07/24 10:18 10 MG Sacubitril/ Valsartan 1 tab BID PO 09/05/24 22:00 09/07/24 10:17 1 TAB Laboratory Results Laboratory Tests 09/06/24 06:03 Urinalysis Test 09/05/24 12:20 Urine Color Light-yellow (Yellow) Urine Clarity Clear (Clear) Urine pH 5.5 (5.0-9.0) Urine Specific [place] 1.021 (1.001-1.035) Urine Protein Negative (Negative) Urine Ketones Negative (Negative) Urine Blood Negative /uL (Negative) Urine Nitrite Negative (Negative) Urine Bilirubin Negative (Negative) Urine Urobilinogen Normal mg/dL (Negative) Urine Leukocyte Esterase Negative /uL (Negative) Urine RBC <1 /hpf (0 - 3) Urine Microscopic WBC < 1 /HPF (0-3) Urine Squamous Epithelial Cells None seen /hpf (<5) Urine Bacteria None seen /hpf (None Seen) Urine Glucose Normal mg/dL (Normal) Labs and/or images reviewed: Labs reviewed by me, Image(s) reviewed by me Assessment/Plan Assessment/Plan A 64-year-old male patient; with chronic hypoxic respiratory failure due to bilateral lobectomies due to [place]ever on home oxygen therapy, hypertensive heart disease with heart failure, and chronic back pain; who presented to the emergency department with chest pain. #Chest pain; to rule out ACS; cardiology is following: Cardiac Cath on tomorrow; NPO after midnight; telemetry; continue aspirin and statin; reviewed troponin and EKG; continue pain management as indicated; continue monitoring #Bradycardia; could be related to metoprolol; telemetry; cardiology is following; continue monitoring #Hypertensive heart disease with heart failure; not in exacerbation; reviewed echocardiogram as below; telemetry; continue current medical management; cardiology is following; continue monitoring #Chronic hypoxic respiratory failure due to bilateral lobectomies due to [place] Fever on home oxygen therapy; stable oxygen requirement; continue oxygen therapy as indicated; continue monitoring #Chronic back pain; continue pain management as indicated; continue monitoring #Obesity; counseled the patient on the importance of adopting healthy lifestyle with diet and exercise in order to lose weight; continue monitoring #Grief; the patient just lost his mother; left AMA on September 03, 2024 to bury his mother; no suicide ideation/plans; continue monitoring September 03, 2024 Echocardiogram: LVEF is severely reduced at 30-35% with global hypokinesis Moderate to severe left ventricular hypertrophy Right ventricle mildly dilated, mildly reduced function No significant valve disease Late Entry. This medical document was created using an electronic medical record system with computerized dictation system. Although this document has been carefully reviewed, there might still be some phonetic and typographical errors. These areas are purely typographical due to imperfections of the software programs, and do not reflect any compromise in the patient's medical care. Plan discussed with: Patient, Other (Nurse) Date of Service: Sep 07, 2024 Billing Provider: SHU BILLINGS MD Common Visit Codes: [id number] INP/OBS CARE(HIGH) SHU BILLINGS MD Sep 07, 2024 12:49
--- NOTE | 2024-09-07 23:39 | DVHPN2 ---
Progress Note - Dictate Date Seen: Sep 07, 2024 Medical Necessity Reason Pt with a Central, PICC or Fol: No Subjective Patient was seen and evaluated in follow up. Patient is complaining of chest discomfort. Patient is scheduled for cardiac cath tomorrow. patient to be NPO at midnight. Consent obtained. Telemetry reviewed. vital signs Vital Sign Date Time Temp Pulse Resp B/P (MAP) Pulse Ox O2 Delivery O2 Flow Rate FiO2 09/07/24 12:57 98.1 63 18 143/92 (109) 95 98.1 09/07/24 08:00 Room Air* 0 21 Total Intake and Output 09/06/24 09/06/24 09/07/24 15:00 23:00 07:00 Intake Total 300 ml Balance 300 ml medications Current Medications Medications Dose Ordered Sig/Coery Route Start Time Stop Time Status Last Admin Dose Admin Aspirin 81 mg DAILY PO 09/05/24 10:00 09/06/24 09:06 81 MG Atorvastatin Calcium 80 mg HS PO 09/04/24 22:00 09/06/24 21:47 80 MG Gabapentin 800 mg QID PO 09/04/24 22:00 09/07/24 11:40 800 MG Hydralazine HCl 5 mg Q6H PRN IV 09/04/24 18:45 09/06/24 17:41 5 MG Sodium Chloride 10 ml Q8HR IV 09/04/24 22:00 09/07/24 13:20 10 ML Docusate Sodium 100 mg BIDPRN PRN PO 09/04/24 18:45 09/07/24 11:40 100 MG Acetaminophen 650 mg Q6HP PRN PO 09/04/24 18:45 09/05/24 05:25 650 MG Acetaminophen/ Hydrocodone Bitart 1 tab Q4HP PRN PO 09/04/24 18:45 09/07/24 11:47 1 TAB Ondansetron HCl 4 mg Q4HP PRN IV 09/04/24 18:45 09/05/24 12:27 4 MG Nitroglycerin 0.4 mg Q5MINP PRN SL 09/04/24 18:45 Morphine Sulfate 2 mg Q30M PRN IV 09/04/24 18:45 09/05/24 12:28 2 MG Metoprolol Succinate 25 mg DAILY PO 09/06/24 10:00 09/07/24 10:18 25 MG Empaglifozin 10 mg DAILY PO 09/06/24 10:00 09/07/24 10:18 10 MG Sacubitril/ Valsartan 1 tab BID PO 09/05/24 22:00 09/07/24 10:17 1 TAB objective GENERAL: Alert and oriented x 3. No acute distress. EYES: PERRL, EOMI. Anicteric. HENT: Moist mucous membranes. LUNGS: Clear to auscultation bilaterally. CARDIOVASCULAR: Regular rate and rhythm. ABDOMEN: Soft, nontender and nondistended. EXTREMITIES: No edema. NEUROLOGIC: No focal neurological deficits. SKIN: Warm, dry. laboratory and microbiology Laboratory Tests 09/06/24 06:03 Test 09/06/24 06:03 Range/Units Serum Glucose 83 74-106 mg/dL Problem List Chest pain, rule out coronary artery disease. NSTEMI. Acute on chronic HFrEF, NYHA class III. Paroxysmal atrial fibrillation, Stage 3A (not on NOAC). History of Valley Fever s/p R lobectomy. Obesity. Assessment/Plan Continued all current supportive medical care. Cardiac cath 09/08/24. Morphine ad [place] for pain management. Aspirin, Lipitor, Metoprolol. IV Hydralazine for SPB > 165. Entresto. Additional plan as per the hospital course. Plan discussed with: Patient FANG KAUFMAN MD Sep 07, 2024 16:26
[2024-09-08] VITALS (12 sets, daily range): BP systolic 145–198; BP diastolic 69–111; PULSE 56–67; RESP 15–18; TEMP 97.7–98.1; O2SAT 94–99
[2024-09-08 06:26] LABS: Basophils # (auto) 0 10 ^3/uL (0-0.2); Basophils % (auto) 0.6 % (0.0-2.0); Eosinophils # (auto) 0.1 10 ^3/uL (0-0.8); Eosinophils % (auto) 1.8 % (0.0-7.0); Hematocrit 47.7 % (41.0-53.0); Hemoglobin 16.1 g/dL (13.5-17.5); Lymphocytes # (auto) 1.8 10 ^3/uL (0.4-5.4); Lymphocytes % (auto) 25.6 % (10.0-50.0); Mean Corpuscular Hemoglobin 28.2 pg (28.0-32.0); Mean Corpuscular Hgb Conc. 33.7 g/dL (32.0-36.0); Mean Corpuscular Volume 83.6 fL (80.0-100.0); Monocytes # (auto) 0.5 10 ^3/uL (0-1.3); Monocytes % (auto) 7.6 % (0.0-12.0); Neutrophils # (auto) 4.5 10 ^3/uL (1.6-8.6); Neutrophils % (auto) 64.4 % (37.0-80.0); Nucleated Red Blood Cells % 0.6 %; Platelet Count (auto) 215 10^3/uL (140-450); Red Cell Distribution Width 13.9 % (11.8-14.3)
[2024-09-08 06:48] LABS: Alanine Aminotransferase 16 U/L (7-40); Albumin 4.4 g/dL (3.2-4.8); Alkaline Phosphatase 93 U/L (46-116); Anion Gap 9 (5-15); BUN/Creatinine Ratio 13.3 (10.0-20.0); Blood Urea Nitrogen 13 mg/dL (9-23); Calcium 9.7 mg/dL (8.7-10.4); Carbon Dioxide 26 mmol/L (20-31); Chloride 107 mmol/L (98-107); Glucose 83 mg/dL (74-106); Potassium 3.7 mmol/L (3.5-5.1); Sodium 142 mmol/L (136-145); Total Protein 6.8 g/dL (5.7-8.2)
[2024-09-08 06:49] LABS: Aspartate Aminotransferase 20 U/L (13-40)
[2024-09-08 06:59] LABS: Bilirubin, Total 1.7 mg/dL (0.2-1.0)
[2024-09-08] MEDS: IODIXANOL 320MG/ML 100ML BTL IV ONE ×2 (07:20→08:22)
[2024-09-08] MEDS: ANGIOMAX 250 MG VIAL IV ONE (07:48)
[2024-09-08] MEDS: LIDOCAINE 2%HCL (LOCAL ANESTH.) INJ 20ML MDV ONE (07:49)
[2024-09-08] MEDS: MIDAZOLAM HCL 2MG/2ML 2ml VIAL (1mg/ml) ONE (07:49)
[2024-09-08] MEDS: fentaNYL CITRATE 100 MCG/2 ML VL ONE (07:49)
[2024-09-08] MEDS: VERAPAMIL 2.5MG/ML INJ 2ML VIAL IV ONE (07:49)
[2024-09-08] MEDS: HEPARIN 1,000 UNITS/ml 1ML VIAL ONE (08:15)
--- NOTE | 2024-09-08 11:54 | DVHOP ---
DATE OF SURGERY: 09/08/2024 TECHNIQUE PERFORMED: * Emergency case. * Ultrasound of the right radial artery. * Management of conscious sedation. * Ultrasound guided insertion of 6-[place]man[place] arterial line in the right radial artery, left heart catheterization. * A [place] selective left and right coronary artery angiography. ASSISTANTS: Assisted by our staff with Jenny. INDICATIONS: The patient has an acute myocardial infarction. The echo has also been abnormal on this patient. The patient chest pain and constant pain. History of smoking previously, previous history of cocaine abuse. The patient also has outpatient ejection fraction in the range of about 30%. DESCRIPTION OF PROCEDURE: Risks and benefits all have been explained to the patient and understood very well, brought to [facility]. The right radial area thoroughly cleaned with soap and Betadine. Lidocaine was given. Ultrasound was done. 6-[place]man[place] arterial line has been placed and subsequently, the patient received a cocktail of 100 mcg of nitroglycerin, 2.5 mg of verapamil, 2000 units of heparin also have been given and subsequently, now we put a TIG catheter 5-[place]man[place] 4-0 and left coronary angio done. Subsequently, with the help of similar catheter, we were able to do also the right coronary artery angiography. We have exchanged with the help of the glidewire to 4-[place]man[place] pigtail catheter. Complete left heart cath also has been done and the left ventriculogram was done in the right oblique view with total of 20 mL of dye. Post-LV gram, left ventricular angiography had been performed with the help of pull-through technique, aortic pressure also performed. Procedure completed. IMPRESSION: * Normal left main. * Left anterior descending artery is widely open. There is no blockade. * Circumflex and obtuse marginal artery also very widely open, normal. * Right coronary artery also widely open and is normal. * Left ventricular ejection fraction is 30%. * The entire apical anterior wall has become akinetic. CONCLUSION: * The patient had an apical anterior wall and apical inferior wall akinetic. Ejection fraction is 30%. * Coronary artery are all normal and the patient's coronary angiogram is normal and there is a segment of wall motion abnormality and which is called Takotsubo syndrome. PLAN OF ACTION: At this time, patient's treatment remains conservative, beta-jurgen, NAYANA inhibitor, cholesterol-reducing medicine, and outpatient followup. James Castellanos MD MP/JARRED/DIAZ TID: [id number] RECEIPT: [id number]
--- NOTE | 2024-09-08 13:45 | DVHPN2 ---
Subjective Denying chest pain; feeling much better after cardiac catheterization Reviewed: Care Plan, H&P, Labs, Medications, Previous Orders, Radiology, Other Changes from previous H/P or p: Changes Objective Vitals Vital Signs Date Time Temp Pulse Resp B/P (MAP) Pulse Ox O2 Delivery O2 Flow Rate FiO2 09/08/24 12:39 98.1 63 17 152/97 (115) 99 98.1 09/08/24 07:50 Room Air* 0 21 Intake/Output Intake and Output 09/08/24 07:00 Intake Total 1805 ml Balance 1805 ml Intake Oral 1805 ml # Voids 9 General Appearance: Alert, Oriented X3, Cooperative, No acute distress HEENT: Atraumatic Lungs: Other (Decreased air entry bilateral) Cardiovascular: Normal S1, Normal S2, No murmurs, Other Abdomen: Normal bowel sounds, Soft, No tenderness Extremities: Other (Right radial artery catheterization site with no hematoma and no bleeding) Neuro: Normal speech, Cranial nerves 3-12 NL Skin: Other Psych/Mental Status: Mental status NL, Mood NL Medications Current Medications Medications Dose Ordered Sig/Corey Route Start Time Stop Time Status Last Admin Dose Admin Aspirin 81 mg DAILY PO 09/05/24 10:00 09/08/24 11:07 81 MG Atorvastatin Calcium 80 mg HS PO 09/04/24 22:00 09/07/24 21:35 80 MG Gabapentin 800 mg QID PO 09/04/24 22:00 09/08/24 11:11 800 MG Hydralazine HCl 5 mg Q6H PRN IV 09/04/24 18:45 09/08/24 09:58 5 MG Sodium Chloride 10 ml Q8HR IV 09/04/24 22:00 09/08/24 13:11 10 ML Docusate Sodium 100 mg BIDPRN PRN PO 09/04/24 18:45 09/07/24 11:40 100 MG Acetaminophen 650 mg Q6HP PRN PO 09/04/24 18:45 09/05/24 05:25 650 MG Acetaminophen/ Hydrocodone Bitart 1 tab Q4HP PRN PO 09/04/24 18:45 09/08/24 11:12 1 TAB Ondansetron HCl 4 mg Q4HP PRN IV 09/04/24 18:45 09/05/24 12:27 4 MG Nitroglycerin 0.4 mg Q5MINP PRN SL 09/04/24 18:45 Morphine Sulfate 2 mg Q30M PRN IV 09/04/24 18:45 09/05/24 12:28 2 MG Metoprolol Succinate 25 mg DAILY PO 09/06/24 10:00 09/07/24 10:18 25 MG Empaglifozin 10 mg DAILY PO 09/06/24 10:00 09/08/24 11:07 10 MG Sacubitril/ Valsartan 1 tab BID PO 09/05/24 22:00 09/08/24 11:07 1 TAB Laboratory Results Laboratory Tests 09/08/24 05:51 Chemistry Test 09/08/24 05:51 Albumin 4.4 g/dL (3.2-4.8) Calcium Level 9.7 mg/dL (8.7-10.4) Total Protein 6.8 g/dL (5.7-8.2) LFT Test 09/08/24 05:51 Alanine Aminotransferase (ALT) 16 U/L (7-40) Alkaline Phosphatase 93 U/L (46-116) Aspartate Amino Transferase (AST) 20 U/L (13-40) Total Bilirubin 1.7 mg/dL (0.2-1.0) H Urinalysis Test 09/05/24 12:20 Urine Color Light-yellow (Yellow) Urine Clarity Clear (Clear) Urine pH 5.5 (5.0-9.0) Urine Specific [place] 1.021 (1.001-1.035) Urine Protein Negative (Negative) Urine Ketones Negative (Negative) Urine Blood Negative /uL (Negative) Urine Nitrite Negative (Negative) Urine Bilirubin Negative (Negative) Urine Urobilinogen Normal mg/dL (Negative) Urine Leukocyte Esterase Negative /uL (Negative) Urine RBC <1 /hpf (0 - 3) Urine Microscopic WBC < 1 /HPF (0-3) Urine Squamous Epithelial Cells None seen /hpf (<5) Urine Bacteria None seen /hpf (None Seen) Urine Glucose Normal mg/dL (Normal) Labs and/or images reviewed: Labs reviewed by me, Image(s) reviewed by me Assessment/Plan Assessment/Plan A 64-year-old male patient; with chronic hypoxic respiratory failure due to bilateral lobectomies due to [place]ever on home oxygen therapy, hypertensive heart disease with heart failure, and chronic back pain; who presented to the emergency department with chest pain. #Chest pain; ACS ruled out; cleared by Cardiology for discharge after left cardiac catheterization showed normal coronary arteries; was on telemetry; to resume home aspirin and statin upon discharge; to follow up with his free lance model within 2 to 4 weeks upon discharge #Hypertensive heart disease with heart failure; not in exacerbation; reviewed echocardiogram as below; was on telemetry; to resume home antihypertensive medications upon discharge; to follow up with his primary care provider on September 10, 2024 #Chronic hypoxic respiratory failure due to bilateral lobectomies due to [place]ever on home oxygen therapy; stable oxygen requirement; to follow up with his primary care provider on September 10, 2024 #Chronic back pain; resume home pain medications upon discharge; to follow up with his primary care provider on September 10, 2024 #Obesity; counseled the patient on the importance of adopting healthy lifestyle with diet and exercise in order to lose weight; to follow up with his primary care provider on September 10, 2024 #Grief; the patient just lost his mother; left AMA on September 03, 2024 to bury his mother; no suicide ideation/plans; to follow up with his primary care provider on September 10, 2024 September 08, 2024 cardiac catheterization: * The patient had an apical anterior wall and apical inferior wall akinetic. Ejection fraction is 30%. * Coronary artery are all normal and the patient's coronary angiogram is normal and there is a segment of wall motion abnormality and which is called Takotsubo syndrome. September 03, 2024 Echocardiogram: LVEF is severely reduced at 30-35% with global hypokinesis Moderate to severe left ventricular hypertrophy Right ventricle mildly dilated, mildly reduced function No significant valve disease Late Entry. This medical document was created using an electronic medical record system with computerized dictation system. Although this document has been carefully reviewed, there might still be some phonetic and typographical errors. These areas are purely typographical due to imperfections of the software programs, and do not reflect any compromise in the patient's medical care. Plan discussed with: Patient, Other (Nurse) My Orders Orders - SHU BILLINGS MD Procedure Category Date Status Time Npo After Midnight ORDERS 09/07/24 Transmitted Date of Service: Sep 08, 2024 Billing Provider: SHU BILLINGS MD Common Visit Codes: [id number] INP/OBS CARE(MOD) SHU BILLINGS MD Sep 08, 2024 13:45
--- NOTE | 2024-09-08 13:51 | DVHDS2 ---
Discharge Summary Date of Admission Sep 04, 2024 at 18:41 Date of Discharge: Sep 08, 2024 Admitting Diagnosis Chest pain Wounds: Right radial artery catheterization site Labs/Diagnostic Data: Laboratory Results Test 09/08/24 05:51 09/05/24 18:48 09/05/24 12:20 09/04/24 22:58 White Blood Count 7.0 10^3/uL (4.4-10.8) Red Blood Count 5.70 10^6/uL (4.5-5.90) Hemoglobin 16.1 g/dL (13.5-17.5) Hematocrit 47.7 % (41.0-53.0) Mean Corpuscular Volume 83.6 fL (80.0-100.0) Mean Corpuscular Hemoglobin 28.2 pg (28.0-32.0) Mean Corpuscular Hemoglobin Concent 33.7 g/dL (32.0-36.0) Red Cell Distribution Width 13.9 % (11.8-14.3) Platelet Count 215 10^3/uL (140-450) Mean Platelet Volume 7.8 fL (6.9-10.8) Neutrophils (%) (Auto) 64.4 % (37.0-80.0) Lymphocytes (%) (Auto) 25.6 % (10.0-50.0) Monocytes (%) (Auto) 7.6 % (0.0-12.0) Eosinophils (%) (Auto) 1.8 % (0.0-7.0) Basophils (%) (Auto) 0.6 % (0.0-2.0) Neutrophils # (Auto) 4.5 10 ^3/uL (1.6-8.6) Lymphocytes # (Auto) 1.8 10 ^3/uL (0.4-5.4) Monocytes # (Auto) 0.5 10 ^3/uL (0-1.3) Eosinophils # (Auto) 0.1 10 ^3/uL (0-0.8) Basophils # (Auto) 0 10 ^3/uL (0-0.2) Nucleated Red Blood Cells 0.6 % Sodium Level 142 mmol/L (136-145) Potassium Level 3.7 mmol/L (3.5-5.1) Chloride Level 107 mmol/L (98-107) Carbon Dioxide Level 26 mmol/L (20-31) Anion Gap 9 (5-15) Blood Urea Nitrogen 13 mg/dL (9-23) Creatinine 0.98 mg/dL (0.700-1.30) Glomerular Filtration Rate Calc 87 mL/min (>90) BUN/Creatinine Ratio 13.3 (10.0-20.0) Serum Glucose 83 mg/dL (74-106) Calcium Level 9.7 mg/dL (8.7-10.4) Total Bilirubin 1.7 mg/dL (0.2-1.0) Aspartate Amino Transferase (AST) 20 U/L (13-40) Alanine Aminotransferase (ALT) 16 U/L (7-40) Alkaline Phosphatase 93 U/L (46-116) Total Protein 6.8 g/dL (5.7-8.2) Albumin 4.4 g/dL (3.2-4.8) Prothrombin Time 11.0 sec (9.3-11.8) Prothrombin Time INR 1.04 (0.9-1.15) Activated Partial Thromboplast Time 32.4 SEC (24.5-34.5) Urine Color Light-yellow (Yellow) Urine Clarity Clear (Clear) Urine pH 5.5 (5.0-9.0) Urine Specific [place] 1.021 (1.001-1.035) Urine Protein Negative (Negative) Urine Ketones Negative (Negative) Urine Blood Negative /uL (Negative) Urine Nitrite Negative (Negative) Urine Bilirubin Negative (Negative) Urine Urobilinogen Normal mg/dL (Negative) Urine Leukocyte Esterase Negative /uL (Negative) Urine RBC <1 /hpf (0 - 3) Urine Microscopic WBC < 1 /HPF (0-3) Urine Squamous Epithelial Cells None seen /hpf (<5) Urine Bacteria None seen /hpf (None Seen) Urine Glucose Normal mg/dL (Normal) Troponin I High Sensitivity 46 ng/L (</=54) Test 09/04/24 16:05 B-Type Natriuretic Peptide 115.81 pg/mL (0-100) Other Laboratory Tests 09/08/24 05:51 Brief Hx & Hospital Course: A 64-year-old male patient; with chronic hypoxic respiratory failure due to bilateral lobectomies due to [place] on home oxygen therapy, hypertensive heart disease with heart failure, and chronic back pain; who presented to the emergency department with chest pain. 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 with his mail processing machine operator within 2 to 4 weeks upon discharge #Hypertensive heart disease with heart failure; not in exacerbation; reviewed echocardiogram as below; was on telemetry; to resume home antihypertensive medications upon discharge; to follow up with his primary care provider on September 10, 2024 #Chronic hypoxic respiratory failure due to bilateral lobectomies due to [place] on home oxygen therapy; stable oxygen requirement; to follow up with his primary care provider on September 10, 2024 #Chronic back pain; resume home pain medications upon discharge; to follow up with his primary care provider on September 10, 2024 #Obesity; counseled the patient on the importance of adopting healthy lifestyle with diet and exercise in order to lose weight; to follow up with his primary care provider on September 10, 2024 #Grief; the patient just lost his mother; left AMA on September 03, 2024 to bury his mother; no suicide ideation/plans; to follow up with his primary care provider on September 10, 2024 September 08, 2024 cardiac catheterization: * The patient had an apical anterior wall and apical inferior wall akinetic. Ejection fraction is 30%. * Coronary artery are all normal and the patient's coronary angiogram is normal and there is a segment of wall motion abnormality and which is called Takotsubo syndrome. September 03, 2024 Echocardiogram: LVEF is severely reduced at 30-35% with global hypokinesis Moderate to severe left ventricular hypertrophy Right ventricle mildly dilated, mildly reduced function No significant valve disease Physical examination as documented in the progress note of the day of discharge: Late Entry. This medical document was created using an electronic medical record system with computerized dictation system. Although this document has been carefully reviewed, there might still be some phonetic and typographical errors. These areas are purely typographical due to imperfections of the software programs, and do not reflect any compromise in the patient's medical care. Consults/Reason for consult Cardiology for chest pain Condition at Discharge: Stable Final Diagnosis/Problems List #Acute chest pain due to Takotsubo syndrome; ACS ruled out #Chronic hypoxic respiratory failure due to bilateral lobectomies due to [place] on home oxygen therapy #Chronic back pain #Obesity #Grief Discharge Disposition: Home Discharge Instruct/Medications Diet: Consistent carbohydrate, Cardiac 2g Na,low cholest Activity: No Restrictions, As Tolerated Follow Up/Referral: Scheduled with PCP on 09/10/2024; to follow up with his mail processing machine operator within 2 to 4 weeks Medications: To resume home medications Discharge Statement: "Patient was advised to return to the ER or call 911 if any headaches, dizziness, shortness of breath, chest pain, abdominal pain, bleeding, fevers, or worsening of medical condition. Patient was counseled about treatment plan, medications, possible side effects, patientverbalized understanding. All questions were answered to the best of my ability. This discharge took greater then 30 minutes in planning, reviewing documentation, counseling the patient, and discussing with other team members." ASSESSMENT ASSESSMENT Assessment Date of Service: Sep 08, 2024 Billing Provider: SHU BILLINGS MD Common Visit Codes: [id number] DISCH DAY >30min SHU BILLINGS MD Sep 08, 2024 13:50
--- NOTE | 2024-09-08 23:49 | DVHPN2 ---
Progress Note - Dictate Date Seen: Sep 08, 2024 Medical Necessity Reason Pt with a Central, PICC or Fol: No Subjective Patient was seen and evaluated in follow up. Patient underwent emergency left heart catheterization, nez perce selective left and right coronary artery angiography. At this time, patient's treatment remains conservative, beta- jurgen, NAYANA inhibitor, cholesterol-reducing medicine, and outpatient followup. Patient is cardiac stable for discharge. Telemetry reviewed. vital signs Vital Sign Date Time Temp Pulse Resp B/P (MAP) Pulse Ox O2 Delivery O2 Flow Rate FiO2 09/08/24 13:55 98.1 63 17 99 09/08/24 12:39 152/97 (115) 09/08/24 07:50 Room Air* 0 21 Total Intake and Output 09/07/24 09/07/24 09/08/24 15:00 23:00 07:00 Intake Total 480 ml 800 ml 525 ml Balance 480 ml 800 ml 525 ml objective GENERAL: Alert and oriented x 3. No acute distress. EYES: PERRL, EOMI. Anicteric. HENT: Moist mucous membranes. LUNGS: Clear to auscultation bilaterally. CARDIOVASCULAR: Regular rate and rhythm. ABDOMEN: Soft, nontender and nondistended. EXTREMITIES: No edema. NEUROLOGIC: No focal neurological deficits. SKIN: Warm, dry. laboratory and microbiology Laboratory Tests 09/08/24 05:51 Test 09/08/24 05:51 Range/Units Serum Glucose 83 74-106 mg/dL Problem List Chest pain, rule out coronary artery disease. NSTEMI. Acute on chronic HFrEF, NYHA class III. Paroxysmal atrial fibrillation, Stage 3A (not on NOAC). History of [place] Fever s/p R lobectomy. Obesity. Assessment/Plan Continued all current supportive medical care. Cardiac cath 09/08/24. Morphine ad [place] for pain management. Aspirin, Lipitor, Metoprolol. IV Hydralazine for SPB > 165. Entresto. Additional plan as per the hospital course. Plan discussed with: Patient FANG KAUFMAN MD Sep 08, 2024 23:49
== END 2024-09-08 15:58 | disposition home or self-care (01) | DRG 192 ==
LOC: ER 15:49 → OVERFLOW 18:41 → TELE-CENTR 09-05 17:44 → TELE-WESTW 09-07 06:08
PROVIDERS: ATTEND Emergency Medicine
PROC: 4A023N7 Measurement of Cardiac Sampling and Pressure, Left Heart, Percutaneous Approach (ICD-10-PCS; principal; 2024-09-08)
PROC: B2151ZZ Fluoroscopy of Left Heart using Low Osmolar Contrast (ICD-10-PCS; 2024-09-08)
PROC: B2111ZZ Fluoroscopy of Multiple Coronary Arteries using Low Osmolar Contrast (ICD-10-PCS; 2024-09-08)
PROC: B34HZZZ Ultrasonography of Right Upper Extremity Arteries (ICD-10-PCS; 2024-09-08)
DX: I51.81 Takotsubo syndrome (principal); I50.23 Acute on chronic systolic (congestive) heart failure; J96.11 Chronic respiratory failure with hypoxia; Z99.81 Dependence on supplemental oxygen; I11.0 Hypertensive heart disease with heart failure; Z68.32 Body mass index [BMI] 32.0-32.9, adult; E66.9 Obesity, unspecified; J44.9 Chronic obstructive pulmonary disease, unspecified; I48.0 Paroxysmal atrial fibrillation; G89.29 Other chronic pain; F43.21 Adjustment disorder with depressed mood; Z87.891 Personal history of nicotine dependence; Z86.73 Personal history of transient ischemic attack (TIA), and cerebral infarction without residual deficits; Z79.82 Long term (current) use of aspirin
CPT/HCPCS: 36415; 71045; 80053; 81001; 83880; 84484; 85025; 85610; 85730; 93005; 93458; 99291; G0378; J2250; J2405; Q9967